=== PATIENT | female | born 1975 | race Caucasian/White ===

== ENCOUNTER 2018-05-01 12:51 | Inpatient (IN) | payer BC ==
--- OUTSIDE RECORDS SUMMARY | 2018-05-01 12:55 | XMS REPORT | Clinical Summary ---
:1975 Author Organization [facility] Address [address] [place] [address] Care Team Providers Name Role Phone Delorisadrian Alan Hathaway Primary Care Provider Allergies Active Allergy Reactions Severity Noted Date Comments Adhesive Other (See 02/16/2016 BLISTERS Comments) Codeine Swelling 02/16/2016 Erythromycin Swelling 02/16/2016 Tongue swelling Other Other (See 05/20/2016 Contraceptives cause Comments) migraines Promethazine 02/16/2016 IV GIVES DYSTONIC REACTION Topiramate Other (See 02/16/2016 SVT Comments) Tramadol Itching Low 02/16/2016 can take with benadryl Hydrocodone-Acetaminop Swelling Low 02/16/2016 Facial swelling hen Medications Medication Sig Dispensed Refills Start Date End Date Status acetaZOLAMIDE Take 500 mg by 0 Active (DIAMOX) 500 mg 12 hr mouth nightly capsule . dexlansoprazole 60 mg Take 60 mg by 0 Active capsule mouth nightly . propranolol (INDERAL) Take 80 mg by 0 Active 80 MG tablet mouth nightly . diphenhydrAMINE Take 50 mg by 0 Active (BENADRYL) 50 MG mouth nightly. tablet melatonin 5 mg Tab Take 5 mg by 0 Active tablet mouth nightly. cetirizine (ZYRTEC) Take 10 mg by 0 Discontinued 10 MG tablet mouth daily. 8 furosemide (LASIX) 40 Take 40 mg by 0 Discontinued MG tablet mouth 2 (two) 8 times daily. MELATONIN/PYRIDOXINE Take by mouth. 0 Discontinued (MELATONIN, WITH B6, 8 ORAL) metoprolol Take 25 mg by 0 Discontinued (LOPRESSOR) 25 MG mouth as 8 tablet needed (Racing Heart Rate). potassium chloride SA Take 20 mEq by 0 Discontinued (K-DUR,KLOR-CON) 20 mouth daily . 8 MEQ tablet DULoxetine (CYMBALTA) Take 60 mg by 0 Discontinued 60 MG capsule mouth daily. 8 CYANOCOBALAMIN, Take by mouth. 0 Discontinued VITAMIN B-12, 8 (VITAMIN B-12 ORAL) mesalamine (LIALDA) Take by mouth 0 Discontinued 1.2 gram EC tablet daily with 8 breakfast. BIFIDOBACTERIUM Take by mouth 0 Discontinued INFANTIS (ALIGN ORAL) 2 (two) times 8 daily. colestipol (COLESTID) Take 5 g by 0 Discontinued 5 gram granules mouth as 8 needed. ferrous gluconate Take 324 mg by 0 Discontinued (FERGON) 324 MG mouth daily 8 tablet with breakfast. frovatriptan (FROVA) Take 2.5 mg by 0 Discontinued 2.5 MG tablet mouth as 8 needed for Migraine If recurs, may repeat after 2 hours. Max of 3 tabs in 24 hours. . levoFLOXacin Take 1 tablet 10 tablet 0 09/07/2017 (LEVAQUIN) 750 MG (750 mg total) 8 tablet by mouth daily for 10 days. metroNIDAZOLE Take 1 tablet 40 tablet 0 09/07/2017 (FLAGYL) 500 MG (500 mg total) 8 tablet by mouth 4 (four) times daily for 10 days. traMADol (ULTRAM) 50 Take 1 tablet 20 tablet 0 09/07/2017 mg tablet (50 mg total) 8 by mouth every 6 (six) hours as needed for Pain for up to 10 days. 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 Encounters Date Type Specialty Care Team Description 11/04/2017 Surgery Olivia Ralph MD 11/04/2017 Anesthesia Event Celsa Lucero CRNA 11/04/2017 Hospital Encounter Olivia Ralph MD 11/01/2017 Hospital Encounter Pre-Admission Resource, Oqmt Testing Preadmit Phone 09/06/2017 - Emergency Emergency Guy Leyva Diverticulitis of large intestine without perforation or abscess without bleeding (Primary Dx); 09/07/2017 Angel Farrell MD Left lower quadrant pain after 04/30/2017 Social History Tobacco Use Types Packs/Day Years Used Date Current Every Day Smoker 20 Smokeless Tobacco: Never Used Comments: smokes 1-2 cig per day Alcohol Use Drinks/Week oz/Week Comments Yes rarely Sex Assigned at Date Recorded Not on file Job Start Date Occupation Industry Not on file Not on file Not on file Travel History Travel Start Travel End No recent travel history available. Last Filed Vital Signs Vital Sign Reading Time Taken Blood Pressure 115/69 11/04/2017 8:40 AM CDT Pulse 79 11/04/2017 8:40 AM CDT Temperature 36 C (96.8 F) 11/04/2017 8:13 AM CDT Respiratory Rate 17 11/04/2017 8:40 AM CDT Oxygen Saturation 98% 11/04/2017 8:40 AM CDT Inhaled Oxygen Concentration - - Weight 87.5 kg (193 lb) 11/04/2017 7:00 AM CDT Height 160 cm (5' 3") 11/04/2017 7:00 AM CDT Body Mass Index 34.19 11/04/2017 7:00 AM CDT Plan of Treatment Not on file Procedures Procedure Name Priority Date/Time Associated Diagnosis Comments REPORT OF PROCEDURE 11/04/2017 8:19 - ENDOSCOPY URL AM CDT COLONOSCOPY 11/04/2017 8:00 Diverticulitis of AM CDT sigmoid colon POCT , Routine 11/04/2017 7:51 Results for this URINE AM CDT procedure are in the results section. POCT , Routine 11/04/2017 7:50 Results for this URINE AM CDT procedure are in the results section. CT ABDOMEN/PELVIS STAT 09/06/2017 11:41 Results for this WITH IV CONTRAST PM CDT procedure are in the results section. CBC W/PLT COUNT & STAT 09/06/2017 10:04 Results for this AUTO DIFFERENTIAL PM CDT procedure are in the results section. PT/APTT STAT 09/06/2017 10:04 Results for this PM CDT procedure are in the results section. SCREEN, STAT 09/06/2017 10:04 Results for this URINE PM CDT procedure are in the results section. URINALYSIS W/ REFLEX STAT 09/06/2017 10:04 Results for this URINE CULTURE PM CDT procedure are in the results section. CBC W/PLT COUNT & STAT 09/06/2017 10:04 Results for this AUTO DIFFERENTIAL PM CDT procedure are in the results section. BASIC METABOLIC STAT 09/06/2017 10:04 Results for this PANEL (7) PM CDT procedure are in the results section. BLOOD CULTURE STAT 09/06/2017 10:04 Results for this PM CDT procedure are in the results section. after 04/30/2017 Results REPORT OF PROCEDURE - ENDOSCOPY URL (11/04/2017 8:19 AM CDT) Narrative Performed At POCT , urine (11/04/2017 7:51 AM CDT)Only the most recent of2 resultswithin the time period is included. Test Urine, POC Negative Control line present?, POC Yes Background clear?, POC Yes UPT Cassette Lot #, POC [id number] UPT Cassette Expiration Date, POC 03/29/2019 CT abdomen pelvis with IV contrast (09/06/2017 11:41 PM CDT) Narrative Performed At FINAL REPORT [facility] CLINICAL HISTORY: Acute abdominal pain. FINDINGS: Multiple axial images of the abdomen and pelvis were performed after the uncomplicated administration of IV contrast. Oral contrast was not given. This exam was performed according to our departmental dose-optimization program, which includes automated exposure control, adjustment of the mA and/or kV according to patient size and/or use of the iterative reconstruction technique. Comparison: 03/07/2017 Lower chest: Bibasilar curvilinear atelectasis versus scarring. No pleural effusion or pneumothorax. Visualized cardiac contours normal. Liver: Stable subcentimeter hypodensity in the right liver, too small to characterize but possibly a cyst Gallbladder and biliary tree: Previous cholecystectomy Spleen: No significant findings. Adrenal Glands: No significant findings. Kidneys and ureters: Several bilateral nonobstructing kidney stones measuring up to 5 mm Stomach and Duodenum: No significant findings. Pancreas: No significant findings. Bowel: Previous right hemicolectomy. No bowel obstruction. Left colonic diverticulosis with focal mural thickening and adjacent inflammatory fat stranding in the proximal sigmoid colon. No evidence of perforation or abscess formation. Bladder: No significant findings. Major vascular structures: No significant findings. Reproductive organs: There is a tampon in the vagina. Other: Trace fluid in the left lower quadrant is probably reactive. No free air or adenopathy Skeleton: No acute bony abnormality. IMPRESSION: Acute, uncomplicated sigmoid diverticulitis. Postsurgical changes, as described. Signed: Brenda Mclean MD Report Verified Date/Time:09/07/2017 00:08:11 Reading Location: [address] Reading Room Procedure Note Interface, External Ris In - 09/07/2017 12:10 AM CDT FINAL REPORT CLINICAL HISTORY: Acute abdominal pain. FINDINGS: Multiple axial images of the abdomen and pelvis were performed after the uncomplicated administration of IV contrast. Oral contrast was not given. This exam was performed according to our departmental dose-optimization program, which includes automated exposure control, adjustment of the mA and/or kV according to patient size and/or use of the iterative reconstruction technique. Comparison: 03/07/2017 Lower chest: Bibasilar curvilinear atelectasis versus scarring. No pleural effusion or pneumothorax. Visualized cardiac contours normal. Liver: Stable subcentimeter hypodensity in the right liver, too small to characterize but possibly a cyst Gallbladder and biliary tree: Previous cholecystectomy Spleen: No significant findings. Adrenal Glands: No significant findings. Kidneys and ureters: Several bilateral nonobstructing kidney stones measuring up to 5 mm Stomach and Duodenum: No significant findings. Pancreas: No significant findings. Bowel: Previous right hemicolectomy. No bowel obstruction. Left colonic diverticulosis with focal mural thickening and adjacent inflammatory fat stranding in the proximal sigmoid colon. No evidence of perforation or abscess formation. Bladder: No significant findings. Major vascular structures: No significant findings. Reproductive organs: There is a tampon in the vagina. Other: Trace fluid in the left lower quadrant is probably reactive. No free air or adenopathy Skeleton: No acute bony abnormality. IMPRESSION: Acute, uncomplicated sigmoid diverticulitis. Postsurgical changes, as described. Signed: Brenda Mclean MD Report Verified Date/Time: 09/07/2017 00:08:11 Reading Location: [address] Reading Room Performing Organization Address City/State/Zipcode Phone Number [facility] Urinalysis w/Microscopic + Reflex to Culture - Clear Catch (09/06/2017 10:04 PM CDT) Color, UA Yellow [facility] Clarity, UA Clear [facility] Specific [place], UA 1.021 1.001 - 1.035 [facility] pH, UA 6.0 5.0 - 8.0 [facility] Protein, UA 10 mg/dL (A) Negative [facility] Glucose, UA Negative Negative [facility] Ketones, UA Negative Negative [facility] Bilirubin, UA Negative Negative [facility] Blood, UA Negative Negative [facility] Nitrite, UA Negative Negative [facility] Leukocytes, UA Negative Negative [facility] Urobilinogen, UA 0.2 0.2 - 1.0 mg/dL [facility] RBC, UA 0 /HPF [facility] WBC, UA 0 /HPF [facility] Bacteria, UA Rare [facility] Mucus Rare [facility] Squam Epithel, UA 1 /HPF [facility] Specimen Source [facility] Specimen Urine - Urine, Voided Performing Organization Address City/[facility]/Zipcode Phone Number [facility] [address] [place] [address] [phone] CENTER PT/aPTT (09/06/2017 10:04 PM CDT) Protime 13.4 11.7 - 14.7 seconds [facility] INR 1.0 <=5.9 [facility] PTT 31.4 22.5 - 36.0 seconds [facility] Specimen Blood - Line, Venous Narrative Performed At [facility] RECOMMENDED COUMADIN/WARFARIN INR THERAPY RANGES STANDARD DOSE: 2.0 - 3.0 Includes: PROPHYLAXIS for venous thrombosis, systemic embolization; TREATMENT for venous thrombosis and/or pulmonary embolus. HIGH RISK: Target INR is 2.5-3.5 for patients with mechanical heart valves. Performing Organization Address City/State/Zipcode Phone Number [facility] [address] [place] [address] CENTER CBC with platelet count + automated diff (09/06/2017 10:04 PM CDT) WBC 16.3 (H) 3.5 - 10.5 K/L [facility] RBC 5.14 3.93 - 5.22 M/L [facility] Hemoglobin 15.3 11.2 - 15.7 GM/DL [facility] Hematocrit 46.5 (H) 34.1 - 44.9 % [facility] MCV 90.5 79.4 - 94.8 fL [facility] MCH 29.8 25.6 - 32.2 pg [facility] MCHC 32.9 32.2 - 35.5 GM/DL [facility] RDW 12.4 11.7 - 14.4 % [facility] Platelets 291 150 - 450 K/CU MM [facility] MPV 10.3 9.4 - 12.3 fL [facility] nRBC 0 0 - 0 /100 WBC [facility] % Neutros 72 % [facility] % Lymphs 18 % [facility] % Monos 9 % [facility] % Eos 0 % [facility] % Baso 0 % [facility] # Neutros 11.68 (H) 1.56 - 6.13 K/L [facility] # Lymphs 2.99 1.18 - 3.74 K/L [facility] # Monos 1.43 (H) 0.24 - 0.36 K/L [facility] # Eos 0.06 0.04 - 0.36 K/L [facility] # Baso 0.05 0.01 - 0.08 K/L [facility] Immature 1 0 - 1 % [facility] Granulocytes-Relative [facility] [place] Specimen Blood - Line, Venous Performing Organization Address [facility] [place] [address] [phone] [place] screen, urine (09/06/2017 10:04 PM CDT) Preg Test, Ur Negative [facility] Specimen Urine - Urine, Voided Performing Organization Address City/[facility] [place] [address] [place] Blood culture (09/06/2017 10:04 PM CDT) Result No growth in 5 days [facility] Specimen Blood - Line, Venous Performing Organization Address [facility] Phone Number [address] [address] [place] Basic metabolic panel (Na, K+, Cl, CO2, Glu, Ca, BUN, Cr) (09/06/2017 10:04 PM CDT) Sodium 134 (L) 136 - 145 meq/L [facility] Potassium 4.3Comment: Specimen 3.5 - 5.1 meq/L [facility] moderately hemolyzed [facility] [place] Chloride 104 98 - 107 meq/L [facility] CO2 21 (L) 22 - 29 meq/L [facility] BUN 14 7 - 21 mg/dL [facility] Creatinine 0.90Comment: Specimen 0.57 - 1.25 mg/dL [facility] moderately hemolyzed [facility] Glucose 88 70 - 105 mg/dL [facility] Calcium 9.4 8.4 - 10.2 mg/dL [facility] EGFR 70Comment: ESTIMATED GFR IS mL/min/1.73 sq m [facility] NOT ACCURATE CREATININE [facility] CENTER CLEARANCE IN PREDICTING GLOMERULAR FILTRATION RATE. ESTIMATED GFR IS NOT APPLICABLE FOR DIALYSIS PATIENTS. Specimen Blood - Line, Venous Performing Organization Address City/State/Zipcode Phone Number [facility] [address] [place] [address] [phone] CENTER after 04/30/2017 Insurance Payer Benefit Plan / Subscriber ID Type Phone Address Group BLUE CROSS/BLUE BS OS xxxxxxxxxxxx PPO [phone] [address] SHIELD POS/PP[place] [address] Advance Directives For more information, please contact:[facility] [place] [address] [phone] Code Status Date Activated Date Inactivated Comments Full Code 05/27/2016 6:45 AM 05/27/2016 5:23 PM This code status was determined by: Patient
--- OUTSIDE RECORDS SUMMARY | 2018-05-01 12:55 | XMS REPORT | Clinical Summary ---
:1975 Author Organization [facility] Address [address] [place] [address] Care Team Providers Name Role Phone Alan Strong MD Primary Care Provider Allergies Active Allergy Reactions Severity Noted Date Comments Adhesive Tape-Silicones Other (See Comments) 10/29/2015 Blisters, red and swelling Blisters skin Codeine Swelling 10/29/2015 Erythromycin Swelling High 10/29/2015 Tongue swelling Hydrocodone 12/16/2015 Ortho-Novum 1 (21) Other (See Comments) 10/29/2015 migraines Promethazine 12/16/2015 IV GIVES DYSTONIC REACTION Topiramate Other (See Comments) High 10/29/2015 SVT Tramadol Itching 10/29/2015 gen itching Hydrocodone-Acetaminophe Swelling, Rash High 10/29/2015 Facial swelling n Medications Medication Sig Dispensed Refills Start Date End Date Status dexlansoprazole Take 60 mg by 0 Active (DEXILANT) 60 mg mouth daily. capsule cyanocobalamin, Vitamin B12 0 Active vitamin B-12, (VITAMIN B-12) 1,000 mcg tablet, sublingual cholecalciferol, Vitamin D3 0 Active vitamin D3, (VITAMIN D3) 1,000 unit capsule cetirizine (ZyrTEC) Take by oral 0 Active 10 mg capsule route. DULoxetine (CYMBALTA) Take 60 mg by 5 04/24/2016 Active 60 MG capsule mouth once daily. ALIGN 4 mg capsule TAKE 1 TAB BY 3 04/30/2016 Active MOUTH DAILY. LIALDA 1.2 gram EC Take 4.8 g by 5 04/30/2016 Active tablet mouth once daily. melatonin-pyridoxine, Take by 0 Active vit B6, (MELATONIN, mouth. WITH B6,) 5-1 mg tablet colestipol (COLESTID) Take 1 g by 0 Active 1 gram tablet mouth 2 (two) times a day. furosemide (LASIX) 40 Take 1 tablet 90 tablet 3 07/29/2016 Active mg tabletIndications: (40 mg total) Tachycardia by mouth daily. potassium chloride Take 1 tablet 90 tablet 3 07/29/2016 Active (K-DUR) 20 MEQ CR (20 mEq tabletIndications: total) by Tachycardia mouth daily. Last dose 2 weeks ago ferrous gluconate Take 324 mg 0 Active (FERGON) 324 MG by mouth tablet daily with breakfast. propranolol (INDERAL) Take 80 mg by 0 Active 80 MG tablet mouth daily. metoprolol tartrate Take 25 mg by 0 Active (LOPRESSOR) 25 mg mouth as tablet needed. acetaZOLAMIDE TAKE ONE 60 capsule 1 03/03/2018 Active (DIAMOX) 500 mg CAPSULE BY capsule MOUTH TWICE DAILY acetaZOLAMIDE TAKE ONE 60 capsule 3 11/01/2016 Discontinued (DIAMOX) 500 mg CAPSULE BY 8 capsule MOUTH TWICE DAILY Active Problems Problem Noted Date Paroxysmal supraventricular tachycardia 05/07/2016 Papilledema of both eyes due to increased intracranial pressure 05/07/2016 Internal hemorrhoids with complication 04/11/2016 External hemorrhoids 04/11/2016 Condyloma acuminatum 04/11/2016 Irritable bowel syndrome 03/21/2016 Gastrointestinal ulcer due to Helicobacter pylori 03/21/2016 Current smoker 02/14/2016 Diverticulosis of intestine 02/14/2016 IIH (idiopathic intracranial hypertension) 02/13/2016 Papilledema of both eyes 02/13/2016 Nasal step visual field defect 02/13/2016 Cavernous hemangioma of brain 02/13/2016 Encounters Date Type Specialty Care Team Description 03/02/2018 Refill Ophthalmology Luly Soto MD 02/24/2018 Office Visit Ophthalmology EUSEBIO Soto (idiopathic intracranial hypertension) (Primary Dx); MD Luly Unspecified visual field defects; Papilledema associated with increased intracranial pressure; 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 11/10/2017 Office Visit Ophthalmology EUSEBIO Soto (idiopathic intracranial hypertension) (Primary Dx); MD Luly Unspecified visual field defects; Optic disc edema; Nasal step visual field defect, left; 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/2017 Family History Medical History Relation Name Comments No Known Problems Father Cancer Maternal Grandfather No Known Problems Mother Cancer Paternal Aunt Cancer Paternal Grandmother Relation Name Status Comments Father Alive Maternal Grandfather Mother Alive Paternal Aunt Paternal Grandmother Social History Tobacco Use Types Packs/Day Years Used Date Current Some Day Smoker 0.25 10 Smokeless Tobacco: Never Used Alcohol Use Drinks/Week oz/Week Comments Yes 4 drinks per month Sex Assigned at Date Recorded Not on file Job Start Date Occupation Industry Not on file Not on file Not on file Travel History Travel Start Travel End No recent travel history available. Last Filed Vital Signs Vital Sign Reading Time Taken Blood Pressure - - Pulse - - Temperature - - Respiratory Rate - - Oxygen Saturation - - Inhaled Oxygen Concentration - - Weight 83.9 kg (185 lb) 02/24/2018 9:15 AM CDT Height 160 cm (5' 3") 02/24/2018 9:15 AM CDT Body Mass Index 32.77 02/24/2018 9:15 AM CDT Plan of Treatment Health Maintenance Due Date Last Done Comments MMR VACCINES (1 of 1 - Standard 1978 series) VARICELLA VACCINES (1 of 2 - 2-dose 1990 adolescent series) CERVICAL CANCER SCREENING 1998 INFLUENZA VACCINE 12/28/2017 HEPATITIS B VACCINES Aged Out No longer eligible based on patient's age to complete this topic IPV VACCINES Aged Out No longer eligible based on patient's age to complete this topic MENINGOCOCCAL VACCINE Aged Out No longer eligible based on patient's age to complete this topic Procedures Procedure Name Priority Date/Time Associated Diagnosis Comments OCT, OPTIC NERVE - Routine 02/24/2018 9:38 Unspecified visual Results for this OU - BOTH EYES AM CDT field defects procedure are in IIH (idiopathic the results intracranial section. hypertension) Papilledema associated with increased intracranial pressure AUTOMATED VISUAL Routine 02/24/2018 9:38 Unspecified visual Results for this FIELD, EXTENDED - AM CDT field defects procedure are in OU - BOTH EYES IIH (idiopathic the results intracranial section. 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 hypertension) Optic disc edema Nasal step visual field defect, left Partial optic atrophy of both eyes AUTOMATED VISUAL Routine 11/10/2017 8:01 Unspecified visual Results for this FIELD, EXTENDED - AM CDT field defects procedure are in OU - BOTH EYES IIH (idiopathic the results intracranial section. hypertension) Nasal step visual field defect, left after 04/30/2017 Results OCT, Optic Nerve - OU (02/24/2018 9:38 AM CDT) Narrative Performed At OD 88, 87, 88, 95, 90, 103, 122, 115 OS 85, 83, 85, 100, 89, 105, 138, 132 Automated Visual Field, Extended - OU (02/24/2018 9:38 AM CDT) Narrative Performed At Right Eye Threshold was 24-2. Strategy was FAUSTINA. -0.90. Findings include normal observations, non-specific defects. Left Eye Threshold was 24-2. Strategy was FAUSTINA. -1.36. Findings include inferior arcuate defect. OCT, Optic Nerve - OU (11/10/2017 8:01 AM CDT) Narrative Performed At OD 87, 88, 95, 90, 103, 122, 115 OS 83, 85, 100, 89, 105, 138, 132 Automated Visual Field, Extended - OU (11/10/2017 8:01 AM CDT) Narrative Performed At Right Eye -1.63. Findings include normal observations, non-specific defects. Left Eye -1.14. Findings include non-specific defects, normal observations, inferior nasal step defect. after 04/30/2017 Insurance Payer Benefit Plan / Group Subscriber ID Type Phone Address BS BS CHOICE PPO/FEDERAL EMPL PPO xxxxxxxxxxxx PPO Advance Directives Patient has advance care planning documents on file. For more information, please contact:[place] [address]
--- OUTSIDE RECORDS SUMMARY | 2018-05-01 12:55 | XMS REPORT | Continuity of Care Document ---
:1975 Author Organization Interface Problems Problem Status Onset Date Classification Date Comments Source Reported Medications Medication Details Route Status Patient Ordering Order Source Instructions Provider Date Allergies, Adverse Reactions, Alerts Substance Category Reaction Severity Reaction Status Date Comments Source type Reported Immunizations Immunization Date Given Site Status Last Updated Comments Source Results Order Results Value Reference Date Interpretation Comments Source Name Range Vital Signs Vital Sign Value Date Comments Source Encounters Location Location Encounter Encounter Reason Attending ADM DC Status Source Details Type Number For Provider Date Date Visit Outpatient [id number] [facility] 08/25 [facility] [id number] [facility] 03/10 [facility] [id number] [facility] 10/06 [facility] Procedures Procedure Code Date Perfomer Comments Source
--- OUTSIDE RECORDS SUMMARY | 2018-05-01 12:56 | XMS REPORT ---
:1975 [facility] Address [address] [place] [address] [address]. [address] [place] [address] Care Team Providers Name Role Phone HERNANDEZ HUFFMAN Unavailable Unavailable Problems This patient has no known problems. Allergies, Adverse Reactions, Alerts This patient has no known allergies or adverse reactions. Medications This patient has no known medications. Results Test Description Test Time Test Comments Text Results Atomic Results Result Comments BLOOD CULTURE 2017-09-12 06:00:00 Test Item Value Reference Range Comments CULTURE (BEAKER) (test wbci=7815) No growth in [address], [id number] 00:08:00Reason for exam:->abd painIs the patient ?->NoWhat is the patient's sedation requirement?->No SedationFINAL REPORT CLINICAL HISTORY: Acute abdominal pain. FINDINGS: [...] the iterative reconstruction technique. Comparison: 03/07/2017 Lower chest:Bibasilar curvilinear atelectasis versus scarring. No pleural effusion or pneumothorax. Visualized cardiac contours normal. Liver: Stable subcentimeter hypodensity in the right liver, too small to characterize but possibly a cyst Gallbladder and biliary tree: Previous cholecystectomy Spleen: No significant findings. Adrenal Glands: No significant findings. Kidneys and ureters: Several bilateral nonobstructing kidney stones measuring up to 5 mm Stomach and Duodenum: No significant findings. Pancreas:No significant findings. Bowel: Previous right hemicolectomy. No [...] Postsurgical changes, as described. Signed: Brenda Mclean MDReport Verified Date/Time: 09/07/2017 00:08:11 Reading Location: [address] Reading Room [id number] 22:35:00 Test Item Value Reference Range Comments PROTIME (BEAKER) (test dunv=944) 13.4 seconds 11.7-14.7 INR (BEAKER) (test dmit=066) 1.0 <=5.9 PARTIAL THROMBOPLASTIN TIME (BEAKER) (test 31.4 seconds 22.5-36.0 buqi=368) RECOMMENDED COUMADIN/WARFARIN INR THERAPY RANGESSTANDARD DOSE: 2.0 - 3.0 Includes: PROPHYLAXIS forvenous thrombosis, systemic embolization; TREATMENT for venous thrombosis and/or pulmonary embolus.HIGH RISK: Target INR is 2.5-3.5 for patients with mechanical heart valves.BASIC METABOLIC [id number] 22:33: 00 Test Item Value Reference Range Comments SODIUM (BEAKER) (test 134 meq/L 136-145 ejxp=805) POTASSIUM (BEAKER) (test 4.3 meq/L 3.5-5.1 Specimen moderately uzyv=191) hemolyzed CHLORIDE (BEAKER) (test 104 meq/L 98-107 nyit=612) CO2 (BEAKER) (test 21 meq/L 22-29 wsav=852) BLOOD UREA NITROGEN 14 mg/dL 7-21 (BEAKER) (test glxm=414) CREATININE (BEAKER) (test 0.90 mg/dL 0.57-1.25 Specimen moderately vmwx=127) hemolyzed GLUCOSE RANDOM (BEAKER) 88 mg/dL 70-105 (test lgwb=460) CALCIUM (BEAKER) (test 9.4 mg/dL 8.4-10.2 ucxf=634) EGFR (BEAKER) (test 70 mL/min/1.73 sq m ESTIMATED GFR IS NOT ztco=9240) ACCURATE CREATININE CLEARANCE IN PREDICTING GLOMERULAR FILTRATION RATE. ESTIMATED GFR IS NOT APPLICABLE FOR DIALYSIS PATIENTS. CBC W/PLT COUNT & AUTO [id number] 22:27:00 Test Item Value Reference Range Comments WHITE BLOOD CELL COUNT (BEAKER) (test reaf=280) 16.3 K/ L 3.5-10.5 RED BLOOD CELL COUNT (BEAKER) (test gejj=762) 5.14 M/ L 3.93-5.22 HEMOGLOBIN (BEAKER) (test ihvt=727) 15.3 GM/DL 11.2-15.7 HEMATOCRIT (BEAKER) (test dhbm=265) 46.5 % 34.1-44.9 MEAN CORPUSCULAR VOLUME (BEAKER) (test fytz=643) 90.5 fL 79.4-94.8 MEAN CORPUSCULAR HEMOGLOBIN (BEAKER) (test 29.8 pg 25.6-32.2 kqux=870) MEAN CORPUSCULAR HEMOGLOBIN CONC (BEAKER) (test 32.9 GM/DL 32.2-35.5 ndzp=590) RED CELL DISTRIBUTION WIDTH (BEAKER) (test 12.4 % 11.7-14.4 npnw=609) PLATELET COUNT (BEAKER) (test ubyh=710) 291 K/CU MM 150-450 MEAN PLATELET VOLUME (BEAKER) (test xayo=551) 10.3 fL 9.4-12.3 NUCLEATED RED BLOOD CELLS (BEAKER) (test 0 /100 WBC 0-0 ltqt=422) NEUTROPHILS RELATIVE PERCENT (BEAKER) (test 72 % mogx=753) LYMPHOCYTES RELATIVE PERCENT (BEAKER) (test 18 % iewi=903) MONOCYTES RELATIVE PERCENT (BEAKER) (test 9 % qepo=599) EOSINOPHILS RELATIVE PERCENT (BEAKER) (test 0 % vowu=045) BASOPHILS RELATIVE PERCENT (BEAKER) (test 0 % yzsx=701) NEUTROPHILS ABSOLUTE COUNT (BEAKER) (test 11.68 K/ L 1.56-6.13 dbzl=582) LYMPHOCYTES ABSOLUTE COUNT (BEAKER) (test 2.99 K/ L 1.18-3.74 awpe=957) MONOCYTES ABSOLUTE COUNT (BEAKER) (test 1.43 K/ L 0.24-0.36 xxav=814) EOSINOPHILS ABSOLUTE COUNT (BEAKER) (test 0.06 K/ L 0.04-0.36 ppfh=323) BASOPHILS ABSOLUTE COUNT (BEAKER) (test 0.05 K/ L 0.01-0.08 zrms=248) IMMATURE GRANULOCYTES-RELATIVE PERCENT (BEAKER) 1 % 0-1 (test bhgj=1644) URINALYSIS W/ REFLEX URINE [id number] 22:23:00 Test Item Value Reference Range Comments COLOR (BEAKER) (test wydd=618) Yellow CLARITY (BEAKER) (test aknj=353) Clear SPECIFIC GRAVITY UA (BEAKER) (test ikmm=769) 1.021 1.001-1.035 PH UA (BEAKER) (test xipo=041) 6.0 5.0-8.0 PROTEIN UA (BEAKER) (test fvwz=330) 10 mg/dL Negative GLUCOSE UA (BEAKER) (test cmsu=845) Negative Negative KETONES UA (BEAKER) (test kkia=129) Negative Negative BILIRUBIN UA (BEAKER) (test fikf=881) Negative Negative BLOOD UA (BEAKER) (test cpvf=905) Negative Negative NITRITE UA (BEAKER) (test yykn=544) Negative Negative LEUKOCYTE ESTERASE UA (BEAKER) (test ygdj=762) Negative Negative UROBILINOGEN UA (BEAKER) (test ofmy=762) 0.2 mg/dL 0.2-1.0 RBC UA (BEAKER) (test rlmi=917) 0 /HPF WBC UA (BEAKER) (test etyk=585) 0 /HPF BACTERIA (BEAKER) (test cpjf=366) Rare MUCUS (BEAKER) (test iuxf=3724) Rare SQUAMOUS EPITHELIAL (BEAKER) (test rtcq=232) 1 /HPF SOURCE(BEAKER) (test wfsz=9708) SCREEN, [id number] 22:22:00 Test Item Value Reference Range Comments TEST URINE (BEAKER) (test pbxe=304) Negative CT, [id number] 00:19:00Reason for exam:->ABDOMINAL PAINIs the patient ?->UnknownWhat is the patient's sedation requirement?->No SedationFINAL REPORT CT scan of the abdomen and pelvis: CLINICAL HISTORY: Abdominal pain. History of diverticulitis. Comparison exam: None TECHNIQUE: CT scan of the abdomen and pelvis with intravenous contrast. This exam was performed according to our departmental dose optimization program , which includes automated exposure control, adjustment of the mA and/or kV according to the patient's size and/or use of the iterative reconstruction technique. FINDINGS: Minimal bilateral posteriorbasilar atelectasis. Normal heart. Subcentimeter hepatic hypodensity, too small to accurately characterize. 2.1 x 1.4 cm splenule. Normal spleen and pancreas. Previous cholecystectomy. Acute sigmoid colon diverticulitis. Previous right hemicolectomy. No abnormal fluid collections. No free intraperitoneal air. No mesenteric or retroperitoneal lymphadenopathy. Normal aorta. Patent mesenteric arteries. Normal adrenal glands. Multiple bilateral renal stones. No ureteral stones or hydronephrosis. Normal uterus. No adnexal abnormalities. Normal bladder. Normal skeleton, muscles, and subcutaneous fat. IMPRESSION: 1. Acute sigmoid colon diverticulitis. No abscess or extraluminal air. 2. Bilateral nephrolithiasis. No ureteral stones or hydronephrosis. 3. Previous right hemicolectomy and cholecystectomy. Signed: Colt Antoine MDReport Verified Date/Time: 03/08/2017 00:19:13 Reading Location: [address] Consult Reading Room URINALYSIS W / [id number] 22:58:00 Test Item Value Reference Range Comments COLOR (BEAKER) (test vgmw=893) Yellow CLARITY (BEAKER) (test azxz=014) Clear SPECIFIC GRAVITY UA (BEAKER) (test jris=539) 1.013 1.001-1.035 PH UA (BEAKER) (test usxp=194) 5.5 5.0-8.0 PROTEIN UA (BEAKER) (test ktvi=740) Negative Negative GLUCOSE UA (BEAKER) (test paxd=153) Negative Negative KETONES UA (BEAKER) (test ndiq=392) Negative Negative BILIRUBIN UA (BEAKER) (test jhkd=646) Negative Negative BLOOD UA (BEAKER) (test aunb=257) Negative Negative NITRITE UA (BEAKER) (test nmxl=097) Negative Negative LEUKOCYTE ESTERASE UA (BEAKER) (test jfje=337) Negative Negative UROBILINOGEN UA (BEAKER) (test jpdv=026) 0.2 mg/dL 0.2-1.0 RBC UA (BEAKER) (test jibs=196) 1 /HPF WBC UA (BEAKER) (test kzzk=802) 2 /HPF BACTERIA (BEAKER) (test icbu=734) Moderate MUCUS (BEAKER) (test meac=5913) Rare SQUAMOUS EPITHELIAL (BEAKER) (test qtad=024) 1 /HPF SOURCE(BEAKER) (test tpfc=8026) Urine, Voided SCREEN, [id number] 22:52:00 Test Item Value Reference Range Comments TEST URINE (BEAKER) (test vgby=253) Negative BASIC METABOLIC [id number] 22:20:00 Test Item Value Reference Range Comments SODIUM (BEAKER) (test 139 meq/L 136-145 uigm=496) POTASSIUM (BEAKER) (test 4.0 meq/L 3.5-5.1 Specimen slightly towb=195) hemolyzed CHLORIDE (BEAKER) (test 109 meq/L 98-107 vvvs=870) CO2 (BEAKER) (test 21 meq/L 22-29 qnyq=930) BLOOD UREA NITROGEN 11 mg/dL 7-21 (BEAKER) (test dkpq=654) CREATININE (BEAKER) (test 1.11 mg/dL 0.57-1.25 Specimen slightly njve=602) hemolyzed GLUCOSE RANDOM (BEAKER) 90 mg/dL 70-105 (test ymrh=001) CALCIUM (BEAKER) (test 9.5 mg/dL 8.4-10.2 dcmj=095) EGFR (BEAKER) (test 55 mL/min/1.73 sq m ESTIMATED GFR IS NOT lxnf=1679) ACCURATE CREATININE CLEARANCE IN PREDICTING GLOMERULAR FILTRATION RATE. ESTIMATED GFR IS NOT APPLICABLE FOR DIALYSIS PATIENTS. CBC W/PLT COUNT & AUTO [id number] 21:52:00 Test Item Value Reference Range Comments WHITE BLOOD CELL COUNT (BEAKER) (test pjxt=773) 10.1 K/ L 3.5-10.5 RED BLOOD CELL COUNT (BEAKER) (test vlwc=141) 4.78 M/ L 3.93-5.22 HEMOGLOBIN (BEAKER) (test qlwt=247) 13.6 GM/DL 11.2-15.7 HEMATOCRIT (BEAKER) (test gdpt=850) 42.1 % 34.1-44.9 MEAN CORPUSCULAR VOLUME (BEAKER) (test qttf=671) 88.1 fL 79.4-94.8 MEAN CORPUSCULAR HEMOGLOBIN (BEAKER) (test 28.5 pg 25.6-32.2 bjvz=785) MEAN CORPUSCULAR HEMOGLOBIN CONC (BEAKER) (test 32.3 GM/DL 32.2-35.5 iwij=348) RED CELL DISTRIBUTION WIDTH (BEAKER) (test 18.6 % 11.7-14.4 cjvd=816) PLATELET COUNT (BEAKER) (test zgjn=746) 314 K/CU MM 150-450 MEAN PLATELET VOLUME (BEAKER) (test mptp=358) 10.5 fL 9.4-12.3 NUCLEATED RED BLOOD CELLS (BEAKER) (test 0 /100 WBC 0-0 dvll=687) NEUTROPHILS RELATIVE PERCENT (BEAKER) (test 60 % zipw=522) LYMPHOCYTES RELATIVE PERCENT (BEAKER) (test 30 % rtfb=614) MONOCYTES RELATIVE PERCENT (BEAKER) (test 8 % tkwn=268) EOSINOPHILS RELATIVE PERCENT (BEAKER) (test 2 % knsg=946) BASOPHILS RELATIVE PERCENT (BEAKER) (test 0 % jzgo=280) NEUTROPHILS ABSOLUTE COUNT (BEAKER) (test 6.05 K/ L 1.56-6.13 sanm=701) LYMPHOCYTES ABSOLUTE COUNT (BEAKER) (test 2.97 K/ L 1.18-3.74 bwpw=464) MONOCYTES ABSOLUTE COUNT (BEAKER) (test 0.76 K/ L 0.24-0.36 ozbq=383) EOSINOPHILS ABSOLUTE COUNT (BEAKER) (test 0.16 K/ L 0.04-0.36 yoeq=527) BASOPHILS ABSOLUTE COUNT (BEAKER) (test 0.04 K/ L 0.01-0.08 nzol=030) IMMATURE GRANULOCYTES-RELATIVE PERCENT (BEAKER) 1 % 0-1 (test xcmv=0776)
[2018-05-01] MEDS ORDERED: NA CHLORIDE 0.9% 1,000 ML ONE ×2 (13:30→17:26)
[2018-05-01 13:38] LABS: Absolute Lymphocytes (CBC) 4.7 K/uL (0.7-4.9); Absolute Monocytes 1.9 K/uL (0.1-1.3); Absolute Neutrophil 15.7 K/uL (1.8-8.0); Basophils % 0.7 % (0-1.3); Eosinophils % 0.3 % (0-4.4); Hematocrit 44.2 % (36.0-45.0); Lymphocytes % 20.8 % (15.3-44.8); MCH 30.2 pg (27.0-35.0); MCV 88.8 fL (80-100); MPV 9.2 fL (7.6-11.3); Monocytes % 8.5 % (3.3-12.3); RBC Red Blood Cell Count 4.98 M/uL (3.86-4.86)
[2018-05-01 13:45] LABS: Protime INR 0.97
[2018-05-01 13:49] LABS: ALT/SGPT 72 U/L (12-78); AST/SGOT 21 U/L (15-37); Albumin 3.4 g/dL (3.4-5.0); Alkaline Phosphatase 93 U/L (45-117); BUN Blood Urea Nitrogen 24 mg/dL (7-18); Bicarbonate 23 mmol/L (21-32); Bilirubin Direct < 0.1 mg/dL (0-0.2); Bilirubin Total 0.3 mg/dL (0.2-1.0); Glucose Level 67 mg/dL (74-106); Lipase 132 U/L (73-393); Magnesium 2.5 mg/dL (1.8-2.4); NT PRO-BNP 29 pg/mL (<125); Potassium 3.5 mmol/L (3.5-5.1); Protein, Total 7.3 g/dL (6.4-8.2); Sodium Level 137 mmol/L (136-145); Troponin (Emerg Dept Use Only) < 0.02 ng/mL (0.0-0.045)
[2018-05-01 14:02] LABS: Urine Blood NEGATIVE (NEG); Urine Glucose NEGATIVE (NEG); Urine Protein NEGATIVE (NEG); Urine pH 7.5 (5.0-7.0)
[2018-05-01] MEDS ORDERED: PANTOPRAZOLE 40 MG INJ ONE (14:05)
--- NOTE | 2018-05-01 14:21 | RAD REPORT ---
EXAM DESCRIPTION: RAD - Chest Single View - 05/01/2018 2:11 pm CLINICAL HISTORY: CHEST PAIN Chest pain. COMPARISON: CHEST PA AND LAT 2 VIEW dated 01/24/2015; ABDOMEN 1 VIEW KUB dated 10/25/2012; CHEST SINGL E VIEW dated 07/10/2012; CHEST SINGLE VIEW dated 07/09/2012 FINDINGS: Portable technique limits examination quality. The lungs are grossly clear. The heart is normal in size. No displaced fractures. IMPRESSION: No acute intrathoracic process suspected.
[2018-05-01] MEDS ORDERED: D50W 25 GM/50 ML SYRINGE IV ONE (14:34)
--- NOTE | 2018-05-01 15:10 | EKG ---
Test Date: 2018-05-01 Test Time: 13:02:30 Kitchen Steward/Stewardess: KATJA MEASUREMENT RESULTS: Intervals: Rate: 66 IL: 172 QRSD: 88 QT: 378 QTc: 396 [place]: P: 49 IL: 172 QRS: -13 T: 20 INTERPRETIVE STATEMENTS: Normal sinus rhythm Normal ECG Compared to ECG 02/05/2016 09:47:16 No significant changes Electronically Signed On 05-01-18 15:09:28 SUPERVISOR WET ROOM by Bud Au
[2018-05-01 15:20] LABS: Smudge Cells PRESENT
[2018-05-01 15:21] LABS: Blood Morphology Comment NOT SEEN (NOT SEEN); Platelet Estimate ADEQ
--- NOTE | 2018-05-01 16:10 | EDPHYS ---
Physician Documentation [facility] Name: Luz Maria Mendoza Age: 42 yrs Sex: Female : 1975 Arrival Date: 05/01/2018 Time: 12:53 Bed 30 Private MD: Alan Strong ED Physician Russ De La Rosa HPI: 05/01 13:46 This 42 yrs old Female presents to ER via Ambulatory with complaints of Chest paola Pain. 13:46 The patient or guardian reports chest pain that is located primarily in the substernal paola area. Onset: 1 week(s) ago. The pain radiates to chest. Associated signs and symptoms: Pertinent positives: shortness of breath. The chest pain is described as a pressure. Duration: The patient or guardian reports a single episode. Modifying factors: The symptoms are alleviated by nothing. the symptoms are aggravated by nothing. Severity of pain: At its worst the pain was mild moderate in the emergency department the pain is unchanged. The patient has experienced similar episodes in the past, a few times. Historical: - Allergies: 12:59 Codeine; ss 12:59 Contraceptives; ss 12:59 Erythromycin; ss 12:59 Phenergan (IV); ss 12:59 Topamax; ss 12:59 Ultram (Itching); ss 12:59 Vicodin; ss 12:59 Iodinated Contrast Media - IV Dye; ss - PMHx: 12:59 Diverticulitis; GERD; hiatal hernia; Endometrosis; Anxiety; svt; PE; caverness angioma; ss hpv; sciatica; Migraines; IBS; iron deficiency anemia; pseudotumors; Kidney stones; - PSHx: 12:59 cardiac ablation; IVC filter placed and removed; Cholecystectomy; c section; gamma ss knife; Appendectomy; hemicolectomy; - Immunization history:: Adult Immunizations up to date. - Social history:: Smoking status: Patient uses tobacco products, 3-4 cigarettes/ day. - Ebola Screening: : Patient denies exposure to infectious person Patient denies travel to an Ebola-affected area in the 21 days before illness onset. - Family history:: not pertinent. ROS: 13:46 Constitutional: Negative for fever, chills, and weight loss, Eyes: Negative for injury, paola pain, redness, and discharge, ENT: Negative for injury, pain, and discharge, Neck: Negative for injury, pain, and swelling, Respiratory: Negative for shortness of breath, cough, wheezing, and pleuritic chest pain, Abdomen/GI: Negative for abdominal pain, nausea, vomiting, diarrhea, and constipation, Back: Negative for injury and pain, : Negative for injury, bleeding, discharge, and swelling, MS/Extremity: Negative for injury and deformity, Skin: Negative for injury, rash, and discoloration, Neuro: Negative for headache, weakness, numbness, tingling, and seizure, Psych: Negative for depression, anxiety, suicide ideation, homicidal ideation, and hallucinations, Allergy/Immunology: Negative for hives, rash, and allergies, Endocrine: Negative for neck swelling, polydipsia, polyuria, polyphagia, and marked weight changes, Hematologic/Lymphatic: Negative for swollen nodes, abnormal bleeding, and unusual bruising. 13:46 Cardiovascular: Positive for chest pain, of the chest. Exam: 13:46 Constitutional: This is a well developed, well nourished patient who is awake, alert, paola and in no acute distress. Head/Face: Normocephalic, atraumatic. Eyes: Pupils equal round and reactive to light, extra-ocular motions intact. Lids and lashes normal. Conjunctiva and sclera are non-icteric and not injected. Cornea within normal limits. Periorbital areas with no swelling, redness, or edema. ENT: Nares patent. No nasal discharge, no septal abnormalities noted. Tympanic membranes are normal and external auditory canals are clear. Oropharynx with no redness, swelling, or masses, exudates, or evidence of obstruction, uvula midline. Mucous membranes moist. Neck: Trachea midline, no thyromegaly or masses palpated, and no cervical lymphadenopathy. Supple, full range of motion without nuchal rigidity, or vertebral point tenderness. No Meningismus. Chest/axilla: Normal chest wall appearance and motion. Nontender with no deformity. No lesions are appreciated. Cardiovascular: Regular rate and rhythm with a normal S1 and S2. No gallops, murmurs, or rubs. Normal PMI, no JVD. No pulse deficits. Respiratory: Lungs have equal breath sounds bilaterally, clear to auscultation and percussion. No rales, rhonchi or wheezes noted. No increased work of breathing, no retractions or nasal flaring. Skin: Warm, dry with normal turgor. Normal color with no rashes, no lesions, and no evidence of cellulitis. MS/ Extremity: Pulses equal, no cyanosis. Neurovascular intact. Full, normal range of motion. Neuro: Awake and alert, GCS 15, oriented to person, place, time, and situation. Cranial nerves II-XII grossly intact. Motor strength 5/5 in all extremities. Sensory grossly intact. Cerebellar exam normal. Normal gait. Psych: Awake, alert, with orientation to person, place and time. Behavior, mood, and affect are within normal limits. Vital Signs: 12:59 BP 121 / 90; Pulse 78; Resp 16; Temp 97.1(TE); Pulse Ox 98% on R/A; Weight 82.1 kg; ss Height 5 ft. 3 in. (160.02 cm); Pain 8/10; 13:50 BP 124 / 85; Pulse 75; Resp 16; Pulse Ox 99% on R/A; kr2 15:04 BP 109 / 74; Pulse 64; Resp 17; Pulse Ox 97% on R/A; kr2 16:00 BP 110 / 64; Pulse 70; Resp 17; Pulse Ox 99% on R/A; kr2 17:37 BP 112 / 59; Pulse 66; Resp 17; Pulse Ox 99% on R/A; kr2 19:30 BP 108 / 70; Pulse 78; Resp 17; Pulse Ox 99% on R/A; kr2 20:52 BP 104 / 64; Pulse 76; Resp 16; Temp 98; Pulse Ox 99% on R/A; kr2 12:59 Body Mass Index 32.06 (82.10 kg, 160.02 cm) MDM: 13:01 Patient medically screened. [facility] 13:52 Data reviewed: vital signs, nurses notes, lab test result(s), EKG, radiologic studies, [facility] CT scan, plain films. 05/01 13:03 Order name: Basic Metabolic Panel; Complete Time: 13:51 [facility] 05/01 13:03 Order name: CBC with Diff; Complete Time: 16:02 [facility] 05/01 13:03 Order name: LFT's; Complete Time: 13:51 [facility] 05/01 13:03 Order name: Magnesium; Complete Time: 13:51 [facility] 05/01 13:03 Order name: NT PRO-BNP; Complete Time: 13:51 [facility] 05/01 13:03 Order name: PT-INR; Complete Time: 16:02 [facility] 05/01 13:03 Order name: Troponin (emerg Dept Use Only); Complete Time: 13:51 [facility] 05/01 13:03 Order name: Lipase; Complete Time: 13:51 [facility] 05/01 13:48 Order name: Manual Differential; Complete Time: 16:02 [facility] 05/01 13:52 Order name: Blood Culture Adult (2) [facility] 05/01 13:53 Order name: D-Dimer; Complete Time: 16:02 [facility] 05/01 14:00 Order name: Urine Dipstick--Ancillary (enter results); Complete Time: 14:04 05/01 14:01 Order name: Urine --Ancillary (enter results) 05/01 14:20 Order name: Urine Dipstick--Ancillary (enter results) 05/01 13:03 Order name: XRAY Chest (1 view) [facility] 05/01 13:51 Order name: CT Chest Abdomen Pelvis W/O Contrast: oral only; Complete Time: 16:49 [facility] 05/01 14:20 Order name: Urine --Ancillary (enter results) 05/01 14:23 Order name: RAD EDMS 05/01 16:46 Order name: CBC with Automated Diff EDMS 05/01 16:46 Order name: CBC with Automated Diff EDMS 05/01 16:46 Order name: Comprehensive Metabolic Panel EDMS 05/01 16:46 Order name: Comprehensive Metabolic Panel EDMS 05/01 16:46 Order name: Magnesium EDMS 05/01 16:46 Order name: Magnesium EDMS 05/01 16:46 Order name: Phosphorus EDMS 05/01 16:46 Order name: Phosphorus EDMS 05/01 13:03 Order name: EKG; Complete Time: 13:04 [facility] 05/01 13:03 Order name: Cardiac monitoring; Complete Time: 13:35 [facility] 05/01 13:03 Order name: EKG - Nurse/Tech; Complete Time: 13:35 [facility] 05/01 13:03 Order name: IV Saline Lock; Complete Time: 13:35 [facility] 05/01 13:03 Order name: Labs collected and sent; Complete Time: 13:35 [facility] 05/01 13:03 Order name: O2 Per Protocol; Complete Time: 13:35 [facility] 05/01 13:03 Order name: O2 Sat Monitoring; Complete Time: 13:35 [facility] 05/01 13:03 Order name: Urine Dipstick-Ancillary (obtain specimen); Complete Time: 13:35 [facility] 05/01 13:03 Order name: Urine Test (obtain specimen); Complete Time: 13:35 [facility] 05/01 16:46 Order name: CONS Physician Consult EDMS 05/01 16:46 Order name: NPO EDMS Administered Medications: 13:34 Drug: NS 0.9% 1000 ml Route: IV; Rate: 75 ml/hr; Site: left antecubital; kr2 20:50 Follow up: Response: No adverse reaction; IV Status: Infusion continued upon admission kr2 13:48 CANCELLED (Duplicate Order): Aspirin 162 mg PO once [facility] 13:48 CANCELLED (Duplicate Order): Lovenox 1 mg/kg Sub-Q once [facility] 13:55 Drug: NS 0.9% 1000 ml Route: IV; Rate: 1 bolus; Site: left antecubital; kr2 15:00 Follow up: Response: No adverse reaction; IV Status: Completed infusion kr2 14:00 Drug: ProTONIX 40 mg Route: IVP; Site: left antecubital; kr2 15:00 Follow up: Response: No adverse reaction kr2 14:25 Drug: D50W 25 ml Route: IVP; Site: left antecubital; kr2 15:30 Follow up: Response: No adverse reaction; Blood sugar is elevated kr2 17:30 Not Given (Patient Refused): Lovenox 1 mg/kg Sub-Q once kr2 17:30 Drug: Flagyl 500 mg Volume: 100 ml; Route: IVPB; Rate: 200 ml/hr; Infused Over: 30 kr2 mins; Site: left antecubital; 18:01 Follow up: Response: No adverse reaction; IV Status: Completed infusion kr2 17:36 Drug: Aspirin 162 mg Route: PO; kr2 20:49 Follow up: Response: No adverse reaction kr2 18:01 Drug: levofloxacin 500 mg Volume: 100 ml; Route: IVPB; Infused Over: 60 mins; Site: kr2 left antecubital; 19:00 Follow up: Response: No adverse reaction; IV Status: Completed infusion kr2 Point of Care Testing: Blood Glucose: 15:19 Blood Glucose: 91 mg/dL; kr2 Ranges: Critical Glucose Levels:Adult <50 mg/dl or >400 mg/dl <40 mg/dl or >180 mg/dl Disposition: 05/01/18 16:09 Hospitalization ordered by Anjelica Valerio for Inpatient Admission. Preliminary diagnosis are Other chest pain, Abdominal tenderness, Elevated white blood cell count, Diverticular disease of intestine, Diverticulitis of small intestine without perforation or abscess without bleeding. - Bed requested for Telemetry/MedSurg (Inpatient). - Status is Inpatient Admission. kr2 - Condition is Fair. - Problem is new. - Symptoms have improved. UTI on Admission? No Signatures: Dispatcher [employer] EDMS Racheal Olivera Corey, MD MD cha Smirch, Shelby, RN RN Tracey Marshall RN RN kr2 Corrections: (The following items were deleted from the chart) 13:48 13:46 Aspirin 162 mg PO once ordered. paola guevara 13:48 13:46 Lovenox 1 mg/kg Sub-Q once ordered. paola paola 16:50 16:09 Hospitalization Ordered by Anjelica Valerio MD for Inpatient Admission. Preliminary paola diagnosis is Other chest pain; Abdominal tenderness; Elevated white blood cell count. Bed requested for Telemetry/MedSurg (Inpatient). Status is Inpatient Admission. Condition is Fair. Problem is new. Symptoms have improved. UTI on Admission? No. paola 17:27 16:50 05/01/2018 16:09 Hospitalization Ordered by Anjelica Valerio MD for Inpatient bd Admission. Preliminary diagnosis is Other chest pain; Abdominal tenderness; Elevated white blood cell count; Diverticular disease of intestine; Diverticulitis of small intestine without perforation or abscess without bleeding. Bed requested for Telemetry/MedSurg (Inpatient). Status is Inpatient Admission. Condition is Fair. Problem is new. Symptoms have improved. UTI on Admission? No. paola 20:53 17:27 05/01/2018 16:09 Hospitalization Ordered by Anjelica Valerio MD for Inpatient kr2 Admission. Preliminary diagnosis is Other chest pain; Abdominal tenderness; Elevated white blood cell count; Diverticular disease of intestine; Diverticulitis of small intestine without perforation or abscess without bleeding. Bed requested for Telemetry/MedSurg (Inpatient). Status is Inpatient Admission. Condition is Fair. Problem is new. Symptoms have improved. UTI on Admission? No. bd
--- NOTE | 2018-05-01 16:10 | ER ---
Nurse's Notes [facility] Name: Luz Maria Mendoza Age: 42 yrs Sex: Female : 1975 Arrival Date: 05/01/2018 Time: 12:53 Bed 30 Private MD: Alan Srtong Diagnosis: Other chest pain;Abdominal tenderness;Elevated white blood cell count;Diverticular disease of intestine;Diverticulitis of small intestine without perforation or abscess without bleeding Presentation: 05/01 12:54 Presenting complaint: Patient states: intermittent chest discomfort that began 1 week ss ago, is worse today. Pt reports she is currently taking medications for an allergic reaction that has not yet fully subsided. Transition of care: patient was not received from another setting of care. Onset of symptoms was April 24, 2018. Risk Assessment: Do you want to hurt yourself or someone else? Patient reports no desire to harm self or others. Initial Sepsis Screen: Does the patient meet any 2 criteria? No. Patient's initial sepsis screen is negative. Does the patient have a suspected source of infection? No. Patient's initial sepsis screen is negative. Care prior to arrival: None. 12:54 Method Of Arrival: Ambulatory ss 12:54 Acuity: ODALYS 3 ss Historical: - Allergies: 12:59 Codeine; ss 12:59 Contraceptives; ss 12:59 Erythromycin; ss 12:59 Phenergan (IV); ss 12:59 Topamax; ss 12:59 Ultram (Itching); ss 12:59 Vicodin; ss 12:59 Iodinated Contrast Media - IV Dye; ss - PMHx: 12:59 Diverticulitis; GERD; hiatal hernia; Endometrosis; Anxiety; svt; PE; caverness angioma; ss hpv; sciatica; Migraines; IBS; iron deficiency anemia; pseudotumors; Kidney stones; - PSHx: 12:59 cardiac ablation; IVC filter placed and removed; Cholecystectomy; c section; gamma ss knife; Appendectomy; hemicolectomy; - Immunization history:: Adult Immunizations up to date. - Social history:: Smoking status: Patient uses tobacco products, 3-4 cigarettes/ day. - Ebola Screening: : Patient denies exposure to infectious person Patient denies travel to an Ebola-affected area in the 21 days before illness onset. - Family history:: not pertinent. Screenin:00 Abuse screen: Denies threats or abuse. Denies injuries from another. Nutritional kr2 screening: No deficits noted. Tuberculosis screening: No symptoms or risk factors identified. Fall Risk None identified. Assessment: 13:00 General: Appears in no apparent distress. comfortable, well groomed, well developed, kr2 well nourished, Behavior is calm, cooperative, appropriate for age. Pain: Complains of pain in chest Pain radiates to right lateral posterior chest Pain currently is 8 out of 10 on a pain scale. Quality of pain is described as squeezing, Pain began 1 week ago, worsened today Is continuous, Alleviated by rest, Aggravated by increased activity. Neuro: Level of Consciousness is awake, alert, obeys commands, Oriented to person, place, time, situation, Appropriate for age Facial symmetry appears normal, Intact. Cardiovascular: Capillary refill < 3 seconds in bilateral fingers Patient's skin is warm and dry. Respiratory: Airway is patent Respiratory effort is even, unlabored, Respiratory pattern is regular, symmetrical. GI: Abdomen is flat, non-distended, Patient currently denies nausea. : Urine is clear. EENT: Oral mucosa is moist. Derm: Skin is intact, is healthy with good turgor, Skin is pink, warm \T\ dry. Musculoskeletal: Circulation, motion, and sensation intact. 14:00 Reassessment: Patient appears in no apparent distress at this time. Patient and/or kr2 family updated on plan of care and expected duration. Pain level reassessed. Patient is alert, oriented x 3, equal unlabored respirations, skin warm/dry/pink. Patient states feeling better. 15:00 Reassessment: Patient appears in no apparent distress at this time. Patient and/or kr2 family updated on plan of care and expected duration. Pain level reassessed. Patient is alert, oriented x 3, equal unlabored respirations, skin warm/dry/pink. Patient states feeling better. 16:15 Reassessment: No changes from previously documented assessment. kr2 17:38 Reassessment: Patient appears in no apparent distress at this time. Patient and/or kr2 family updated on plan of care and expected duration. Pain level reassessed. Patient is alert, oriented x 3, equal unlabored respirations, skin warm/dry/pink. Patient states feeling better. 18:30 Reassessment: Patient appears in no apparent distress at this time. Patient and/or kr2 family updated on plan of care and expected duration. Pain level reassessed. Patient is alert, oriented x 3, equal unlabored respirations, skin warm/dry/pink. Patient states feeling better. 19:30 Reassessment: No changes from previously documented assessment. kr2 20:52 Reassessment: Patient appears in no apparent distress at this time. Patient and/or kr2 family updated on plan of care and expected duration. Pain level reassessed. Patient is alert, oriented x 3, equal unlabored respirations, skin warm/dry/pink. Patient states feeling better. Vital Signs: 12:59 BP 121 / 90; Pulse 78; Resp 16; Temp 97.1(TE); Pulse Ox 98% on R/A; Weight 82.1 kg; ss Height 5 ft. 3 in. (160.02 cm); Pain 8/10; 13:50 BP 124 / 85; Pulse 75; Resp 16; Pulse Ox 99% on R/A; kr2 15:04 BP 109 / 74; Pulse 64; Resp 17; Pulse Ox 97% on R/A; kr2 16:00 BP 110 / 64; Pulse 70; Resp 17; Pulse Ox 99% on R/A; kr2 17:37 BP 112 / 59; Pulse 66; Resp 17; Pulse Ox 99% on R/A; kr2 19:30 BP 108 / 70; Pulse 78; Resp 17; Pulse Ox 99% on R/A; kr2 20:52 BP 104 / 64; Pulse 76; Resp 16; Temp 98; Pulse Ox 99% on R/A; kr2 12:59 Body Mass Index 32.06 (82.10 kg, 160.02 cm) ED Course: 12:53 Patient arrived in ED. ag5 12:53 Alan Strong MD is Private Physician. ag5 12:55 Triage completed. ss 12:59 Arm band placed on right wrist. 13:00 Patient has correct armband on for positive identification. Bed in low position. Call kr2 light in reach. Side rails up X 1. awake overnight monitor on. Pulse ox on. NIBP on. Door closed. Warm blanket given. Head of bed elevated. 13:01 Russ De La Rosa MD is Attending Physician. [facility] 13:15 Inserted saline lock: 20 gauge in left antecubital area, using aseptic technique. Blood kr2 collected. Patient maintains SpO2 saturation greater than 95% on room air. 14:05 X-ray completed. Portable x-ray completed in exam room. Patient tolerated procedure mh1 well. 14:23 RAD In Process Unspecified. EDMS 14:32 Tracey Marshall, MARIBELL is Primary Nurse. kr2 16:06 Anjelica Valeroi MD is Hospitalizing Provider. paola 16:15 CT Chest Abdomen Pelvis W/O Contrast: oral only In Process Unspecified. EDMS 20:51 No provider procedures requiring assistance completed. Patient admitted, IV remains in kr2 place. Administered Medications: 13:34 Drug: NS 0.9% 1000 ml Route: IV; Rate: 75 ml/hr; Site: left antecubital; kr2 20:50 Follow up: Response: No adverse reaction; IV Status: Infusion continued upon admission kr2 13:48 CANCELLED (Duplicate Order): Aspirin 162 mg PO once paola 13:48 CANCELLED (Duplicate Order): Lovenox 1 mg/kg Sub-Q once paola 13:55 Drug: NS 0.9% 1000 ml Route: IV; Rate: 1 bolus; Site: left antecubital; kr2 15:00 Follow up: Response: No adverse reaction; IV Status: Completed infusion kr2 14:00 Drug: ProTONIX 40 mg Route: IVP; Site: left antecubital; kr2 15:00 Follow up: Response: No adverse reaction kr2 14:25 Drug: D50W 25 ml Route: IVP; Site: left antecubital; kr2 15:30 Follow up: Response: No adverse reaction; Blood sugar is elevated kr2 17:30 Not Given (Patient Refused): Lovenox 1 mg/kg Sub-Q once kr2 17:30 Drug: Flagyl 500 mg Volume: 100 ml; Route: IVPB; Rate: 200 ml/hr; Infused Over: 30 kr2 mins; Site: left antecubital; 18:01 Follow up: Response: No adverse reaction; IV Status: Completed infusion kr2 17:36 Drug: Aspirin 162 mg Route: PO; kr2 20:49 Follow up: Response: No adverse reaction kr2 18:01 Drug: levofloxacin 500 mg Volume: 100 ml; Route: IVPB; Infused Over: 60 mins; Site: kr2 left antecubital; 19:00 Follow up: Response: No adverse reaction; IV Status: Completed infusion kr2 Point of Care Testing: Blood Glucose: 15:19 Blood Glucose: 91 mg/dL; kr2 Ranges: Outcome: 16:09 Decision to Hospitalize by Provider. paola 20:51 Admitted to Tele accompanied by tech, via wheelchair, room 215, with chart, Report kr2 called to Juan 20:51 Condition: stable 20:51 Instructed on the need for admit, Demonstrated understanding of instructions. 20:53 Patient left the ED. kr2 Signatures: Dispatcher [employer] EDRuss Lackey MD MD cha Harvey, Martha mh1 Nelsy Harkins RN RN ss Tracey Marshall RN RN kr2 Lexus Cooper 5
--- NOTE | 2018-05-01 16:31 | RAD REPORT ---
EXAM DESCRIPTION: CT - Chest Abd Pelvis Wo Con - 05/01/2018 4:14 pm CLINICAL HISTORY: Chest and abdominal pain COMPARISON: 2016 TECHNIQUE: Computed axial tomography of the chest, abdomen and pelvis was obtained. Oral contrast wa s given. IV contrast was not requested. All CT scans are performed using dose optimization technique as appropriate and may include automated exposure control or mA/KV adjustment according to patient size. FINDINGS: The evaluation of mediastinum, katey, vessels and solid organs is limited secondary to the lack of IV contrast administration No mediastinal or hilar lymphadenopathy is seen. A pleural effusion is not present. A pericardial effusion is not seen. A lung consolidation is not present. The lungs are essentially clear. The liver, spleen, pancreas, and adrenals appear grossly normal Small bilateral nonobstructing renal calculi. Small hemorrhagic cyst upper pole left kidney Mild stranding adjacent to the proximal sigmoid colon. Diverticulosis. 4.5 centimeter left ovarian cystic mass. Minimal free fluid There is no evidence of diverticulitis. IMPRESSION: Mild sigmoid diverticulitis 4.5 centimeter left ovarian cystic mass likely benign ovarian cyst. Followup ultrasound in a couple m onths recommended
[2018-05-01] MEDS ORDERED: ACETAMINOPHEN 650MG/RECT SUPP PR PRN (16:40)
[2018-05-01] MEDS: METRONIDAZOLE 500mg IVPB 500 MG/100 ML BAG IV SCH (17:00)
[2018-05-01] MEDS: ONDANSETRON 4 MG/2 ML VIAL IV SCH ×2 (17:00→21:00)
[2018-05-01] MEDS ORDERED: ASPIRIN 81 MG CHEWABLE TABLET ONE (17:25)
[2018-05-01] MEDS ORDERED: ENOXAPARIN 80 MG/0.8 ML SQ ONE (17:26)
[2018-05-01] MEDS ORDERED: Levofloxacin500mg IV 500 MG/100 ML BAG IV ONE (17:26)
[2018-05-01] MEDS ORDERED: METRONIDAZOLE 500mg IVPB 500 MG/100 ML BAG IV ONE (17:26)
[2018-05-01] MEDS: FAMOTIDINE 20 MG/2 ML VIAL IV SCH (22:04)
[2018-05-01] MEDS: D5.45NS W/KCL 20MEQ 1,000 ML IV SCH (22:04)
[2018-05-01] MEDS: CIPROFLOXACIN 400mg IV 400 MG/200 ML BAG IV SCH (22:05)
[2018-05-01 22:11] LABS: Urine Blood 2+ (NEG); Urine Glucose NEGATIVE (NEG); Urine Protein NEGATIVE (NEG); Urine pH 5.5 (5.0-7.0)
[2018-05-02] MEDS: D5.45NS W/KCL 20MEQ 1,000 ML IV SCH ×3 (00:13→17:00)
[2018-05-02] MEDS: ONDANSETRON 4 MG/2 ML VIAL IV SCH ×6 (00:14→17:00)
[2018-05-02] MEDS: METRONIDAZOLE 500mg IVPB 500 MG/100 ML BAG IV SCH ×3 (00:15→17:41)
[2018-05-02 04:04] VITALS: BMI 31.8
[2018-05-02 06:05] LABS: Absolute Monocytes 1.1 K/uL (0.1-1.3); Absolute Neutrophil 6.1 K/uL (1.8-8.0); Basophils % 0.4 % (0-1.3); Hematocrit 40.8 % (36.0-45.0); Lymphocytes % 35.5 % (15.3-44.8); MCH 30.7 pg (27.0-35.0); MCV 89.4 fL (80-100); MPV 9.3 fL (7.6-11.3); Monocytes % 9.5 % (3.3-12.3); RBC Red Blood Cell Count 4.56 M/uL (3.86-4.86)
[2018-05-02 06:56] LABS: Albumin 2.6 g/dL (3.4-5.0); Bilirubin Total 0.3 mg/dL (0.2-1.0); Magnesium 2.2 mg/dL (1.8-2.4); Phosphorus 4.1 mg/dL (2.5-4.9); Potassium 3.7 mmol/L (3.5-5.1); Protein, Total 5.7 g/dL (6.4-8.2)
[2018-05-02] MEDS ORDERED: CETIRIZINE HCL 5 MG TABLET PO SCH (09:00)
[2018-05-02] MEDS: CIPROFLOXACIN 400mg IV 400 MG/200 ML BAG IV SCH (09:29)
[2018-05-02] MEDS: FAMOTIDINE 20 MG/2 ML VIAL IV SCH (09:30)
[2018-05-02 10:04] VITALS: TEMP 97.1
--- NOTE | 2018-05-02 12:52 | P.HP ---
Certification for Inpatient Patient admitted to: Inpatient With expected LOS: >2 Midnights Patient will require the following post-hospital care: None Practitioner: I am a practitioner with admitting privileges, knowledge of patient current condition, hospital course, and medical plan of care. Services: Services provided to patient in accordance with Admission requirements found in Title 42 Section 412.3 of the Code of Federal Regulations Patient History Date of Service: 05/01/18 Reason for admission: chest pain/ acute diverticulitis History of Present Illness: Patient is a 42-year-old female came to the hospital with a epigastric tenderness. Patient has had pain on and off for the last few days. She has a prior history of diverticulitis and was receiving outpatient treatment for this. She also developed issues with her hands and feet and developed a rash and they were bothering her. She went to the urgent care for the pruritus and was given Benadryl, prednisone, and Pepcid. She started developing pain in her chest and epigastric region. She also was having really bad reflux. She thought the chest pain was worrisome so she came into the hospital for further evaluation. After speaking with her felt like most of this was GI related, and that she could have GI consultation. Patient did not want to see any of the local GI doctor this social follow up as an outpatient with her GI physician. We will make sure there is no cardiac issues by monitoring on telemetry and continue treating her diverticulitis. Keep her NPO and may be started on liquid diet in the morning. Allergies codeine [Codeine] Allergy (Intermediate, Verified 05/01/18 22:14) facial swelling erythromycin lactobionate [From Erythrocin] Allergy (Intermediate, Verified 08/14 22:14) tongue swells hydrocodone bitartrate [From Vicodin] Allergy (Intermediate, Verified 05/01/18 22:14) facial swelling tramadol HCl [From Ultram] Allergy (Intermediate, Verified 05/01/18 22:14) Itching/Hives/Rash topiramate [From Topamax] Adverse Reaction (Intermediate, Verified 05/01/18 22: 14) tachycardia NSAIDS (Non-Steroidal Anti-Inflamma Adverse Reaction (Verified 05/01/18 22:14) Flare up of diverticulitis promethazine HCl [From Phenergan] Adverse Reaction (Verified 05/01/18 22:14) dystonic reaction to IV phenergan only Contracepti Allergy (Uncoded 05/01/18 22:14) Unknown Phenergan (IV Allergy (Uncoded 05/01/18 22:14) Unknown adhesives Adverse Reaction (Intermediate, Uncoded 05/01/18 22:14) blisters/redness all control pills Adverse Reaction (Intermediate, Uncoded 05/01/18 22:14) causes migraines Home Medications: Acetazolamide [Diamox*] 500 mg PO BEDTIME 05/01/18 Diphenhydramine [Benadryl*] 50 mg PO BEDTIME 05/01/18 Escitalopram [Lexapro*] 10 mg PO BEDTIME 05/01/18 Esomeprazole Mag Trihydrate [Nexium] 40 mg PO BEDTIME 05/01/18 Frovatriptan Succinate 2.5 mg PO PRN PRN 05/01/18 Lactobacillus Acidophilus [Probiotic] 1 cap PO BEDTIME 05/01/18 Melatonin 10 mg PO BEDTIME 05/01/18 Metoprolol Tartrate [Lopressor] 25 mg PO PRN PRN 05/01/18 Propranolol [Inderal LA*] 60 mg PO BEDTIME 05/01/18 - Past Medical/Surgical History Has patient received pneumonia vaccine in the past: No Diabetic: No -: gerd -: heneria -: endometrosis -: diverticulitis -: arthritist -: anxiety -: PE -: SVT -: HEMMOROIDS -: HPV -: IBS -: eye -: lap edin -: laposcopy -: gamma-knife -: append -: cardiac ablation -: hemmoroidectomy - Family History Father Family History: Reviewed- Non-Contributory - Social History Smoking Status: Current every day smoker Alcohol use: Yes CD- Drugs: No Caffeine use: Yes Place of Residence: Home Review of Systems 10-point ROS is otherwise unremarkable Physical Examination - Vital Signs Temperature: 97.1 F Blood Pressure: 109/62 Pulse: 62 Respirations: 18 Pulse Ox (%): 97 - Physical Exam General: Alert, In no apparent distress, Oriented x3 HEENT: Atraumatic, PERRLA, Mucous membr. moist/pink, EOMI, Sclerae nonicteric Neck: Supple, 2+ carotid pulse no bruit, No LAD, Without JVD or thyroid abnormality Respiratory: Clear to auscultation bilaterally, Normal air movement Cardiovascular: Regular rate/rhythm, Normal S1 S2, No murmurs Gastrointestinal: Normal bowel sounds, Soft and benign, Non-distended, Tenderness Musculoskeletal: No clubbing, No swelling, No tenderness Integumentary: No rashes Neurological: Normal gait, Normal speech, Normal strength at 5/5 x4 extr, Normal tone, Sensation intact, Cranial nerves 3-12 intact, Normal affect Lymphatics: No axilla or inguinal lymphadenopathy - Studies Laboratory Data (last 24 hrs) 05/01/18 13:15: PT 11.5, INR 0.97 05/01/18 13:15: WBC 22.5 H*, Hgb 15.0, Hct 44.2, Plt Count 387 05/01/18 13:15: Sodium 137, Potassium 3.5, BUN 24 H, Creatinine 0.80, Glucose 67 L, Magnesium 2.5 H, Total Bilirubin 0.3, AST 21, ALT 72, Alkaline Phosphatase 93, Lipase 132 Assessment & Plan - Problems (Diagnosis) (1) Chest pain, rule out acute myocardial infarction Current Visit: Yes Status: Acute (2) Esophagitis Current Visit: Yes Status: Acute (3) GERD (gastroesophageal reflux disease) Current Visit: Yes Status: Acute (4) Leukocytosis Current Visit: Yes Status: Acute (5) Acute diverticulitis Onset Date: 05/02/18 Current Visit: Yes Status: Acute - Plan Plan: 1. IV antibiotics 2. IV hydration 3. Pain control 4. PPI 5. Outpatient GI followup 6. Echocardiogram to evaluate cardiac status 7. Liquid diet in a.m. 8. GI and DVT prophylaxis Discharge Plan: Home Plan to discharge in: Greater than 2 days - Advance Directives Does patient have a Living Will: No Does patient have a Durable POA for Healthcare: No - Code Status/Comfort Care Code Status Assessed: Yes Code Status: Full Code Critical Care: No Time Spent Managing PTS Care (In Minutes): 50
[2018-05-02 13:12] VITALS: O2SAT 96
[2018-05-02] MEDS ORDERED: POTASSIUM 25 MEQ EFFERV TAB PO ONE (15:18)
[2018-05-02 17:52] VITALS: BP 123/58
--- NOTE | 2018-05-02 18:34 | CON ---
Date of Consultation: 05/02/2018 Reason For Service: Acute diverticulitis. History Of Present Illness: This is the case of a 42-year-old patient with epigastric tenderness and also periumbilical tenderness. The patient was found to have acute diverticulitis admitted to the [facility] and surgical consultation was done. The patient has history of diverticulitis in the past. Apparently, she had an episode like that several weeks ago for which she took antibiotics. She even had surgery before colon resection and has for the diverticulum too. She had an extensive surgical h istory. She feels better today. There is no dysuria, hematuria, hematochezia, or melena. No recent traveling out of the country. No family members sick at home. Past medical history reviewed includ ing Vicodin, Ultram, Topamax, and Phenergan. Past Medical History: Includes GERD, endometriosis, diverticulitis, anxiety, PE, cardiac arrhythmias . Past Surgical History: Including hemorrhoidectomy, cardiac ablation, appendectomy, cholecystectomy, eye surgery. Family History: Noncontributory. Social History: She smokes occasionally. She does not drink alcohol. Review of Systems: Ten points otherwise unremarkable. Physical Examination: General: The patient is awake and alert. HEENT: Pupils are equal and reactive. Anicteric. Neck: Supple. Chest: Clear. Abdomen: Soft and depressible. No guarding or rebound or peritoneal signs. Patient last night had left lower quadrant tenderness apparently is improving. Pelvic, Rectal, and Breasts: Deferred. Extremity: Good capillary refill. Imaging: CAT scan of the abdomen and pelvis interpreted by Dr. Brownign as a 4.5 cm left ovarian cyst , also mild sigmoid diverticulitis. Patient does not have a sigmoid colon because she had previous c olectomy so that will be the part of the transverse colon that now become the sigmoid colon. There i s also no evidence of diverticulitis although the impression says mild sigmoid diverticulitis, so we going to clarify this. Assessment: This is a 42-year-old patient with multiple surgical interventions. Also, a CAT scan th at september suggest diverticulitis by Dr. Browning. The patient feels better right now with no pain. We a re going to proceed with diet. She has to follow up with her pivot maker to see the status of her colonoscopies from a surgical standpoint, no surgical intervention at this moment. She was advi sed importance of discussing ovarian cyst findings with her certified personal trainer thank you. WATSON Voice ID: [id number] Report ID: [id number]
--- NOTE | 2018-05-03 07:52 | ECHO ---
HEIGHT: 5 ft 3 in WEIGHT: 180 lb 0 oz DATE OF STUDY: 05/02/[address]: Josué Ridley MD 2-DIMENSIONAL: YES M.MODE: YES DOPPLER: YES COLOR FLOW: YES TDS: NO PORTABLE: NO DEFINITY: NO BUBBLE STUDY: NO DIAGNOSIS: CHEST PAIN CARDIAC HISTORY: CATHERIZATION: YES SURGERY: [*] PROSTHETIC VALVE: NO PACEMAKER: NO MEASUREMENTS (cm) DIASTOLIC (NORMALS) SYSTOLIC (NORMALS) IVSd 0.9 (0.6-1.2) LA Diam 3.3 (1.9-4.0) LVEF 78% LVIDd 4.6 (3.5-5.7) LVIDs 2.5 (2.0-3.5) %FS 46% LVPWd 0.9 (0.6-1.2) Ao Diam 2.6 (2.0-3.7) 2 DIMENSIONAL ASSESSMENT: RIGHT ATRIUM: NORMAL LEFT ATRIUM: NORMAL RIGHT VENTRICLE: NORMAL LEFT VENTRICLE: NORMAL TRICUSPID VALVE: NORMAL MITRAL VALVE: NORMAL PULMONIC VALVE: NORMAL AORTIC VALVE: NORMAL PERICARDIAL EFFUSION: NONE AORTIC ROOT: NORMAL LEFT VENTRICULAR WALL MOTION: NORMAL DOPPLER/COLOR FLOW: NORMAL COMMENTS: NORMAL 2D ECHOCARDIOGRAM WITH DOPPLER. TECHNOLOGIST: Estephania GRIFFITH
== END 2018-05-02 18:00 | disposition home or self-care (01) | DRG 392 ==
LOC: ER 12:51 → ERHOLD 16:43 → 2ND 20:31
PROVIDERS: ADMIT Family Medicine; ATTEND Family Medicine
DX: K57.32 Diverticulitis of large intestine without perforation or abscess without bleeding (principal); K21.0 Gastro-esophageal reflux disease with esophagitis; F41.9 Anxiety disorder, unspecified; Z86.711 Personal history of pulmonary embolism; I49.9 Cardiac arrhythmia, unspecified; F17.200 Nicotine dependence, unspecified, uncomplicated; N83.202 Unspecified ovarian cyst, left side; Z90.49 Acquired absence of other specified parts of digestive tract
CPT/HCPCS: 36415; 71045; 71250; 74176; 80048; 80053; 80076; 81003; 81025; 82962; 83690; 83735; 83880; 84100; 84145; 84484; 84703; 85025; 85379; 85610; 85652; 86140; 87040; 93005; 93306; 94760; 96361; 96365; 96367; 96375; 99285; C9113; J0744; J1650; J2405; J7030

== ENCOUNTER 2020-09-27 07:44 | Emergency (ER) | payer BC ==
--- OUTSIDE RECORDS SUMMARY | 2020-09-27 07:50 | XMS REPORT | Continuity of Care Document ---
:1975 Author Organization [facility] t Address [address] [place] [address] Care Team Providers Name Role Phone Lillian CONNER Primary Care Physician Unavailable SYSTEM, NOT IN Attending Clinician Unavailable Helena Robbins MD Attending Clinician Bridget MENDOZA Attending Clinician Unavailable Bridget Mendoza MD Attending Clinician Angelica Nieto Attending Clinician Unavailable Antonio Kim Attending Clinician Don LARES Attending Clinician Eduard REYNA Attending Clinician Unavailable Lakhwinder HORN Attending Clinician Iliana HORN Attending Clinician DON Attending Clinician Unavailable Keith Jimenez RN Attending Clinician Unavailable GENEVA ABREU Attending Clinician Unavailable Geneva Abreu MD Attending Clinician Nic REYNA, Julio Attending Clinician Unavailable Sylvain EXAMINER OF CURRENCY, Y Attending Clinician Unavailable Valeriy HENDRICKSON Attending Clinician Unavailable Julio Diamond RN Attending Clinician Unavailable MARIN Attending Clinician Unavailable Rocky Crespo Attending Clinician ROCKY MICHAUD Attending Clinician Unavailable Gilbert Carrasco MD Attending Clinician Provider, Urgent Care Attending Clinician Unavailable Nikia Funes MD Attending Clinician Dinorah LEUNG Attending Clinician DEBORAH Attending Clinician Unavailable Lillian Conner MD Attending Clinician Deborah LARES Attending Clinician Lillian CONNER Attending Clinician Unavailable Neno CARDENAS Attending Clinician Reji REYNA Attending Clinician Unavailable Jackie Jimenez MD Attending Clinician Doctor Unassigned, Name Attending Clinician Unavailable Mahsa Ralph MD Attending Clinician Saima HORN Attending Clinician Sheryl Khanna MD Attending Clinician CANDACE HUFFMAN Attending Clinician Unavailable Bridget MENDOZA Admitting Clinician Unavailable BENITEZ Admitting Clinician Unavailable Payers Payer Name Policy Type Policy Effective Date Expiration Date [facility] ce Number BCBSANTHEM TANGELA [id number] [id number] Methodis t 2017-Presen tPPO BCBS PPO POS OUT [id number] 2017 OF STATE GENERIC 00:00:00 Problems Condition Condition Condition Status Onset Resolution Last Treating Co mments Source Name Details Category Date Date Treatment Clinician Date Anxiety Anxiety Disease Active 07-21 Anderso 00:00: n 00 Diverticul Diverticul Disease Active M D itis itis 07-21 Anderso 00:00: n 00 Endometrio Endometrio Disease Active M D sis sis 07-21 Anderso 00:00: n 00 Gastroesop Gastroesop Disease Active M D hageal hageal 2-22 Anderso reflux reflux 00:00: n disease disease 00 with with hiatal hiatal hernia hernia Insulin Insulin Disease Active MD resistance resistance 2-22 An derso 00:00: n 00 Irritable Irritable Disease Active bowel bowel 2-22 Anderso syndrome syndrome 00:00: n 00 Abnormal Abnormal Disease Active [place] EKG EKG 06-20 [facility] 00:00: st 00 SOB SOB Disease Active [place] (shortness (shortness 1-22 Me thodi of breath) of breath) 00:00: st 00 Dyslipidem Dyslipidem Disease Active [place] ia ia 06-20 [facility] 00:00: st 00 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 Pruritus Pruritus Disease Active 2019-05 [place] ani ani 06-09 Methodi 00:00: st 00 Anal polyp Anal polyp Disease Active 2019-05 M D 1-11 Anderso 00:00: n 00 Breast Breast Disease Active 2019-05 MD screening screening 0-28 Mason rso 00:00: n 00 Family Family Disease Active 2019-05 MD history of history of 0-28 An derso malignant malignant 00:00: n neoplasm neoplasm 00 of of pancreas pancreas Family Family Disease Active 2019-05 MD history of history of 0-28 An derso malignant malignant 00:00: n neoplasm neoplasm 00 of ovary of ovary Family Family Disease Active 2019-05 MD history of history of 0-28 An derso malignant malignant 00:00: n neoplasm neoplasm 00 of thyroid of thyroid Family Family Disease Active 2019-05 MD history of history of 0-28 An derso malignant malignant 00:00: n neoplasm neoplasm 00 of of prostate prostate Family Family Disease Active 2019-05 Overview: history of history of 0-28 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:00: with n mutation mutation 00 documente d BRIP-1 mutation Headache Problem Active 2020-08-11 Mem oria (finding) 09-24 00:35:06 l Headache 00:00: Alex smith (finding) 00 Active 09/24/2016 Problem 08/11/2020 [facility] Anal Anal Disease Active 2015-[address] [facility] condyloma condyloma [facility] - 00:[facility]: Medical 00 Center 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 [place] supraventr supraventr 2- Me thodi icular icular 00:00: st tachycardi tachycardi 00 a a Papilledem Papilledem Disease Active 2015-05 [place] a of both a of both 2-09 Meth chelita eyes due eyes due 00:00: st to to 00 increased increased intracrani intracrani al al pressure pressure Internal Internal Disease Active 2015-05 [place] hemorrhoid hemorrhoid 1- Me thodi s with s with 00:00: st complicati complicati 00 on on External External Disease Active 2015-05 [place] hemorrhoid hemorrhoid 1- Me thodi s s 00:00: st 00 Condyloma Condyloma Disease Active 2015-05 [place] acuminatum acuminatum 1-13 Me thodi 00:00: st 00 Irritable Irritable Disease Active 2015-05 [place] bowel bowel 0-23 [facility] syndrome syndrome 00:00: st 00 Gastrointe Gastrointe Disease Active 2015-05 [place] stinal stinal 0-23 [facility] ulcer due ulcer due 00:00: st to to 00 Helicobact Helicobact er pylori er pylori Current Current Disease Active Brandon smoker smoker 9-17 [facility]i 00:00: st 00 Diverticul Diverticul Disease Active [facility] [place] osis of osis of 17 [facility] intestine intestine 00:00: st 00 IIH IIH Disease Active Brandon (idiopathi (idiopathi 9-16 Me thodi c c 00:00: st intracrani intracrani 00 al al hypertensi hypertensi on) on) Papilledem Papilledem Disease Active [place] a of both a of both 9-16 Meth chelita eyes eyes 00:00: st 00 Nasal step Nasal step Disease Active [place] visual visual 9-16 [facility] field field 00:00: st defect defect 00 Cavernous Cavernous Disease Active [place] hemangioma hemangioma 9-16 Me thodi of brain of brain 00:00: st 00 Hemangioma Hemangioma Disease Active Overview : of of 16 Data Anderso intracrani intracrani 00:00: migrated n al al 00 from GE structure structure Centricit y on 01/21/15. Neck pain Problem Active 2020-08-11 Me moria (finding) 01-29 00:35:06 l Neck 00:00: [place] pain 00 (finding) Active 01/30/2016 Problem 08/11/2020 [facility] Pain in Problem Active 2020-08-11 Edison christy elbow 01-29 00:35:06 l (finding) Pain in 00:00: Herm gloria elbow 00 (finding) Active 01/30/2016 Problem 08/11/2020 [facility] Benign Benign Disease Active intracrani intracrani 7-27 An derso al al 00:00: n hypertensi hypertensi 00 on on Radial Problem Active 2020-08-11 Memor ia neuropathy 6-10 00:35:06 l (disorder) Radial 00:00: Herm gloria neuropathy 00 (disorder) Active 11/07/2015 Problem 08/11/2020 [facility] Lumbar Problem Active 2020-08-11 Memor ia radiculopa 5-12 00:35:06 l thy Lumbar 00:00: [place] (disorder) radiculopa 00 thy (disorder) Active 10/09/2015 Problem 08/11/2020 [facility] Paresthesi Problem Active 2020-08-11 M emoria a 5-12 00:35:06 l (finding) 00:00: [place] Paresthesi 00 a (finding) Active 10/09/2015 Problem 08/11/2020 [facility] Fibromyalg Problem Active 2020-08-11 M emoria ia 00:35:06 l (disorder) Alex n Fibromyalg ia (disorder) Active Problem 08/11/2020 [facility] Kidney Problem Active 2020-08-11 Memor ia stone 00:35:06 l (disorder) Kidney Herm gloria stone (disorder) Active Problem 08/11/2020 [facility] Allergies, Adverse Reactions, Alerts Allergy Allergy Status Severity Reaction(s) Onset Inactive Treating Comm ents Source Name Type Date Date Clinician Other Propensi Active Other (See 2019-05 Contracep [place] ty to Comments) 07-10 tives Methodi adverse 00:00: give head st reaction 00 aches. s Iodinate Propensi Active Anaphylaxis 2019-05 [place] d ty to 06-09 [facility] Contrast adverse 00:00: st Media reaction 00 s to drug Other Propensi Active Other (See 2015-[address] ty to Comments) 07-21 tives [facility] adverse 00:[facility]: cause Medical reaction 00 migraines Cente r s Adhesive Propensi Active Other (See BLISTERS [facility] to Comments) 02-15 [facility] - adverse 00:00: Medical reaction 00 Center s Codeine Propensi Active Swelling [facility] 02-15 [facility] - adverse 00:00: Medical reaction 00 Center s Erythrom Drug Active Swelling Tongue [facility] ycin Allergy 02-15 swelling [facility] - 00:[facility]: Medical 00 Center Prometha Propensi Active IV GIVES [facility] zine ty to 02-15 DYSTONIC [facility] - adverse 00:00: REACTION Medical reaction 00 Center s Topirama Propensi Active Other (See SVT [facility] ty to Comments) 02-15 [facility] - adverse 00:00: Medical reaction 00 Center s Tramadol Propensi Active Itching can take [facility] ty to 02-15 with [facility] - adverse 00:00: benadryl Medical reaction 00 Center s Hydrocod Propensi Active Swelling Facial [facility] one-Acet ty to 02-15 swelling [facility] - aminophe adverse 00:00: Medical n reaction 00 Center s Hydrocod Propensi Active [place] one ty to 12-15 [facility] adverse 00:00: st reaction 00 s to drug Prometha Propensi Active IV GIVES [place] zine ty to 12-15 DYSTONIC [facility] adverse 00:00: REACTION st reaction 00 s to drug Adhesive Propensi Active Other (See Blisters, [place] Tape-Ana ty to Comments) 10-28 red and Meth chelita icones adverse 00:00: swelling st reaction 00 Blisters s to skin drug Codeine Propensi Active Swelling [place] ty to 10-28 [facility] adverse 00:00: st reaction 00 s to drug Erythrom Propensi Active Swelling Tongue [place] ycin ty to 10-28 swelling [facility] adverse 00:00: st reaction 00 s to drug Ortho-No Propensi Active Other (See migraines [place] vum ty to Comments) 10-28 Metho di (21) adverse 00:00: st reaction 00 s to drug Topirama Propensi Active Other (See SVT [place] te ty to Comments) 10-28 [facility] adverse 00:00: st reaction 00 s to drug Tramadol Propensi Active Itching gen [place] ty to 10-28 itching [facility] adverse 00:00: st reaction 00 s to drug Hydrocod Propensi Active Swelling, Facial [place] one-Acet ty to Rash 10-28 swelling Method i aminophe adverse 00:00: st n reaction 00 s to drug codeine [facility] [place] adhesive DA [facility] tape 8-12 [facility] [place] hydrocod DA Active [facility] one 8-11 [facility] [place] erythrom DA [facility] ycin 8-11 [facility] [place] prometha DA Active [facility] zine 8-11 [facility] [place] codeine< codeine< Active Memori a sup>1, sup>1, l 2</sup> 2</sup> Clay erythrom erythrom Active Memori a ycin<sup ycin<sup l >3</sup> >3</sup> Alex smith prometha prometha Active Memori a zine<sup zine<sup l >4</sup> >4</sup> Alex smith topirama topirama Active Memori a te<sup>5 te<sup>5 l </sup> </sup> [place] Adhesive Adhesive Active Memori a Tape<sup Tape<sup l >6</sup> >6</sup> Alex n acetamin acetamin Active Memori a ophen-HY ophen-HY l DROcodon DROcodon Alex n e<sup>7< e<sup>7< /sup> /sup> traMADol traMADol Active Memori a <sup>8</ <sup>8</ l sup> sup> Clay Cipro Cipro Active Medium Memoria l [place] Family History Family Member Diagnosis Comments Start Date Stop Date Source Natural father No Known Problems Flo stoluis Anabaptist Maternal grandfather Cancer [place] [facility] Maternal grandfather Lung cancer MD [place] Natural mother No Known Problems Flo stoluis Anabaptist Paternal aunt Cancer [place] hodist Paternal aunt Pancreatic cancer MD [facility] brothers Paternal grandmother Cancer [place] [facility] Paternal grandmother Ovarian cancer MD [place] Cousin Prostate cancer [facility]in Thyroid cancer MD Joanna smith Other Breast cancer MD [place] Paternal cousin Thyroid cancer MD Bobbi reagan Paternal grandfather Pituitary tumor MD [place] Natural sister Other MD Joanna smith Social History Social Habit Start Date Stop Date Quantity Comments Source Sex Assigned At [facility] Cigarettes smoked 2020-08-18 2020-08-18 MD Mason melendez current (pack per 00:00:00 00:00:00 day) - Reported Cigarette pack-years 2020-08-18 2020-08-18 MD Peyman brothers 00:00:00 00:00:00 Tobacco use and 2020-08-18 2020-08-18 Never used [facility] exposure 00:00:00 00:00:00 Alcohol intake 2020-08-18 2020-08-18 Ex-drinker MD Joanna smith 00:00:00 00:00:00 (finding) Tobacco Comment 2020-03-31 2020-03-31 quit 2019 MD [facility] 00:00:00 00:00:00 Alcohol Comment 2020-03-31 2020-03-31 Very rarely maybe MD [place] 00:00:00 00:00:00 once every 3-6 months History of tobacco 2019-05-23 Current smoker MD [place] use 00:00:00 Smoking Status Start Date Stop Date Source Former smoker 2020-08-18 00:00:00 2020-08-18 00:00:00 MD Garcia son Current every day 2017-11-04 00:00:[address] [facility] Medications Ordered Filled Start Stop Current Ordering Indication Dosage Frequency Signature Comments Components Source Medication Medication Date Date Medication? Clinician (SIG) Name Name acetaminoph Yes 2{capsu Take 2 M D en 500 mg 3-29 le} capsules Sandeep o coapsule 13:40: by mouth n 08 as needed. metoprolol Yes 25mg Take 25 mg M D tartrate 3-29 by mouth Anderso (LOPRESSOR 13:40: as needed. n ORAL) 08 acetaZOLAMI Yes 1{capsu Take 1 M D DE (Diamox 3-29 le} capsule by And erso Sequels) 13:40: mouth n 500 mg 08 daily. capsule ibuprofen Yes 400mg Take 400 MD (ADVIL,MOTR 3-29 mg by Anderso IN) 200 mg 13:40: mouth as n tablet 08 needed. phenylephri Yes 2{tbl} Take 2 MD ne/DM/aceta 3-29 tablets by An derso minop/GG 13:40: mouth as n (TYLENOL 08 needed. COLD AND FLU SEVERE ORAL) cetirizine Yes 10mg Take 10 mg M D (ZyrTEC) 10 - by mouth Mason rso mg tablet 13:40: daily. n 08 ibuprofen Yes Genetic 800mg Take 1 MD (ADVIL,MOTR 3-02 mutation tablet An derso IN) 800 mg 00:00: (800 mg) n tablet 00 by mouth every 8 (eight) hours as needed for moderate pain. acetaminoph Yes Genetic 1000mg Take 2 MD en (Tylenol 3-02 mutation tablets A nderso Extra 00:00: (1,000 mg) n Strength) 00 by mouth 500 mg every 6 tablet (six) hours as needed for mild pain. senna Yes Genetic 1{tbl} Take 1 MD (Senna Lax) 3-02 mutation tablet by Anderso 8.6 mg 00:00: mouth n tablet 00 daily as needed for constipati on. traMADol Yes Family 50mg Take 1 MD (ULTRAM) 50 3-02 history of tablet (50 Anderso mg tablet 00:00: gene mg) by n 00 mutation mouth every 8 (eight) hours as needed for moderate pain. oxyCODONE No Genetic 5mg Take 1 MD (Roxicodone 3-02 02 mutation tablet (5 Anderso ) 5 mg 00:00: 00:00 mg) by n immediate 00 :00 mouth release every 8 tablet (eight) hours as needed for severe pain. diphenhydrA No 50mg Take 50 mg MD MINE-acetam 07-21 by mouth And erso inophen 15:29: 00:00 as needed. n (TYLENOL 53 :00 PM) 25-500 mg tab potassium Yes TAKE 1 MD citrate 1-28 TABLET BY Joanna (UROCIT-K) 00:00: MOUTH n 10 mEq SR 00 TWICE A tablet DAY propranolol 2019-05 Yes 80mg QD Take 80 mg [facility] [place] (INDERAL 2-17 by mouth Meth chelita LA) 120 MG 03:01: every st 24 hr 25 evening. capsule metoprolol 2019-05 Yes 25mg Take 25 mg [place] tartrate 2-17 by mouth Methodi (LOPRESSOR) 03:01: as needed s t 25 mg 25 (palpitati tablet ons). acetaZOLAMI 2019-05 Yes 500mg QD Take 500 [place] (DIAMOX) 2-17 mg by [facility] 500 mg 03:01: mouth st capsule 25 every evening. omeprazole 2019-05 Yes 40mg QD Take 40 mg [place] (PriLOSEC) 2-17 by mouth Metho di 40 MG 03:01: daily. st capsule 25 buPROPion 2019-05 Yes 150mg QD Take 150 [place] XL 2-17 mg by Methodi (WELLBUTRIN 03:01: mouth st XL) 150 MG 25 every 24 hr evening. tablet frovatripta 2019-05 Yes 2.5mg Take 2.5 [place] n (FROVA) 2-17 mg by Methodi 2.5 MG 03:01: mouth once st tablet 25 as needed for migraine. May repeat in 2 hours if unresolved . Do not exceed 7.5 mg in 24 hours. pregabalin 2019-05 Yes 100mg [id number] Take 100 [facility] (LYRICA) 2-17 [id number] mg by Meth chelita 100 MG 03:01: 3D mouth 3 st capsule 25 (three) times a day. sertraline 2019-05 Yes 25mg QD Take 25 mg [place] (ZOLOFT) 25 2-17 by mouth Meth chelita MG tablet 03:01: every st 25 evening. cetirizine 2019-05 Yes Take by [place] (ZyrTEC) 10 2-17 oral Method[facility] mg capsule 03:01: route. st 25 colestipol 2019-05 Yes 1g Q.5D Take 1 g [place] (COLESTID) 2-17 by mouth 2 Met hodi 1 gram 03:01: (two) st tablet 25 times a day. traMADol 2019-05- No 50mg Take 50 mg MD (ULTRAM) 50 2-15 12-26 by mouth. An derso mg tablet 00:00: 05:59 n 00 :00 traMADoL 2019-05- No acute pain 50mg Q6H Take 1 [facility] (Ultram) 50 2-15 12-25 tablet (50 M ethodi mg tablet 00:00: 23:59 mg total) st 00 :00 by mouth every 6 (six) hours as needed for moderate pain for up to 10 days .acute pain. ferrous 2019-05- No 324mg QD Take 324 [place] gluconate 07-10-11 mg by Method[facility] (FERGON) 09:56: 00:[address] 324 MG 42 :00 daily with tablet breakfast. melatonin-p 2019-05- No Take by Mark minaya yridoxine, 07-10 mouth. Method i vit B6, 09:55: 00:00 st (MELATONIN, 48 :00 WITH B6,) 5-1 mg tablet cholecalcif 2019-05- No Vitamin D3 Geoff kaya, 07-10 [facility] vitamin D3, 09:55: 00:00 st (VITAMIN 17 :00 D3) 1,000 unit capsule cyanocobala 2019-05- No Vitamin Mark minaya min, 07-10 B12 [facility]i vitamin 09:55: 00:00 st B-12, 10 :00 (VITAMIN B-12) 1,000 mcg tablet, sublingual dexlansopra 2019-05- No 60mg QD Take 60 mg Geoff zole 07-10- by mouth Methodi (DEXILANT) 09:54: 00:[address] 60 mg 53 :00 capsule Zoloft 2019-0 Yes 25 mg, PO, Memor ia 3-20 Daily, 0 l 18:57: Refill(s) Lyrica 2020-0 Yes 100 mg, Memoria 3-20 PO, TID, 0 l 18:57: Refill(s) pregabalin 2019-0 Yes 1{capsu Take 1 MD (Lyrica) 3-20 le} capsule by Jose so 100 mg 00:00: mouth 3 n capsule 00 (three) times a day. sertraline 2019-0 Yes 1{tbl} Take 1 MD (Zoloft) 25 3-20 tablet by And erso mg tablet 00:00: mouth n 00 daily. 24 HR 2019-0 Yes 150 mg = 1 Memori a Bupropion 1-17 tab, PO, l Hydrochlori 17:00: Q24H, 0 Her villagomez de 150 MG 00 Refill(s) Extended Release Tablet [Wellbutrin ] Wellbutrin 2019-0 Yes PO, 0 Memori a 1-17 Refill(s) l 15:19: frovatripta Yes = 1 tab, Me moria n 2.5 mg 1-17 PO, Q24H, l oral tablet 15:19: PRN NEEDED FOR HEADACHE, # 9 tab, 3 Refill(s), Pharmacy: [facility][id number] buPROPion 2019-0 Yes 1{tbl} Take 1 MD (WELLBUTRIN 1-17 tablet by And erso XL) 150 mg 00:00: mouth n 24 hr 00 daily. tablet Prilosec Yes 40 mg, PO, Mem oria 9-13 Daily, 0 l 14:47: Refill(s) omeprazole 2018-0 Yes 1{capsu Take 1 MD (PriLOSEC) 9-13 le} capsule by And erso 40 MG 00:00: mouth n capsule 00 daily. tamsulosin 1- No .4mg Take 0.4 MD (FLOMAX) 8-17 02-22 mg by Anderso 0.4 mg 24 00:00: 00:00 mouth n hr capsule 00 :00 daily. frovatripta Yes = 1 tab, Me moria n 2.5 mg 5-10 PO, Q24H, l oral tablet 14:29: PRN Herm gloria 28 NEEDED FOR HEADACHE, # 9 tab, 3 Refill(s), Pharmacy: [facility] #[id number] propranolol Yes 120 mg = 1 Memoria 120 mg oral 5-10 cap, PO, l capsule, 14:28: Daily, # Sarah nn extended 00 30 cap, 5 release Refill(s), Pharmacy: [facility] #[id number] Xyzal Yes PO, BID, 0 Memori a 5-10 Refill(s) l 14:10: Clay 00 Ranitidine Yes 150 mg = 1 M emoria 150 MG Oral 5-10 tab, PO, l Tablet 14:10: BID, # 60 Alex n [Zantac] 00 tab, 0 Refill(s) propranolol Yes 1{capsu Take 1 M D (INDERAL 5-10 le} capsule by Joseesa COLLINS) 120 mg 00:00: mouth n 24 hr 00 daily. capsule levocetiriz 2020- No 10mg Take 10 mg MD ine 5-10 02-22 by mouth Anderso dihydrochlo 00:00: 00:00 daily. n ride (XYZAL 00 :00 ORAL) propranolol No = 1 cap, Me moria 80 mg oral 4-09 PO, Daily, l capsule, 14:43: # 30 [place] extended 03 unknown release unit, Refill(s) 5, Pharmacy: [facility] #[id number] propranolol No = 1 cap, Me moria 80 mg oral 1-11 PO, Daily, l capsule, 23:46: # 30 [place] extended 55 unknown release unit, Refill(s) 2, Pharmacy: [facility] #[id number] hyoscyamine 2017-05- No 125ug Place 125 MD (LEVSIN/SL) 2-12 02-22 mcg under An derso 0.125 mg SL 00:00: 00:00 the tongue n tablet 00 :00 as needed. frovatripta 2017-05 No 2.5 mg = 1 Memoria n 2.5 mg 0-12 tab, PO, l oral tablet 14:38: Daily, PRN Clay 00 for migraine headache, may repeat x 2 with 2 hours between doses if needed, # 9 tab, 2 Refill(s) Esomeprazol 2017-05 Yes 40 mg = 1 M emoria e 40 MG 0-12 cap, PO, l Enteric 14:38: Daily, # Alex n Coated 00 30 cap, 0 Capsule Refill(s) [Nexium] Escitalopra 2017-05 Yes 10 mg = 1 M emoria m 10 MG 0-12 tab, PO, l Oral Tablet 14:38: Daily, # Stevo rmgloria [Lexapro] 00 30 tab, 0 Refill(s) Lopressor 2017-05 Yes 25 mg, PO, Me moria 0-12 PRN, 0 l 14:38: Refill(s) Clay 00 propranolol No See Memori a 80 mg oral 12-30 Instructio l capsule, 13:50: ns, # 90 Sarah nn extended 35 unknown release unit, Refill(s) 3, TAKE 1 CAPSULE DAILY, Pharmacy: [facility] acetaZOLAMI Yes 500mg QD Take [address] [place] (DIAMOX) 6-08 mg by [facility] - 500 mg 12 09:11: mouth Medical hr capsule 56 nightly . Cent er dexlansopra Yes 60mg QD Take [address] [facility] zole 60 mg 6-08 by mouth [facility] - capsule 09:11: nightly . Medic al Center propranolol Yes 80mg QD Take [address] [facility] [facility] (INDERAL) 6-08 by mouth [facility] - 80 MG 09:11: nightly . Medical tablet 56 [place] diphenhydrA Yes 50mg QD Take [address] [facility] MINE 6-08 by mouth [facility] - (BENADRYL) 09:11: nightly. Med ical 50 MG 56 Center tablet melatonin 5 Yes 5mg QD Take [address] mg Tab 6-08 by mouth [facility] - tablet 09:11: nightly. Medical Center frovatripta Yes 1{tbl} Take 1 MD n (FROVA) 8-04 tablet by Jose so 2.5 MG 00:00: mouth as n tablet 00 needed. furosemide 2020- No Tachycardia 40mg QD Take 1 [place] (LASIX) 40 3-02 12-11 tablet (40 Me thodi mg tablet 00:00: 00:00 mg total) st 00 :00 by mouth daily. potassium 2019- No Tachycardia 20meq QD Take 1 [place] chloride 07-29 tablet (20 Meth chelita (K-DUR) 20 00:00: 00:00 mEq total) st MEQ CR 00 :00 by mouth tablet daily. Last dose 2 weeks ago LIALDA 1.2 2015-05 Yes 1.2g QD Take 1.2 g [place] gram EC 07-01 by mouth [facility]i tablet 00:00: daily. st 00 mesalamine 2015-05 Yes 1{tbl} Take 1 MD (Lialda) 07-01 tablet by Sandeep neil 1.[address] 00:00: mouth n tablet 00 twice daily. ALIGN 4 mg 2015-05- No TAKE 1 TAB [place] capsule 07-01 BY MOUTH Methodi 00:00: 00:[address] 00 :00 DULoxetine 2015-05- No 60mg QD Take 60 mg [place] (CYMBALTA) 06-24 by mouth Meth chelita 60 MG 00:00: 00:[address] capsule 00 :00 daily. Vital Signs Vital Name Observation Time Observation Value Comments Source WEIGHT 2020-07-29 06:40:00 91.2 kg WEIGHT 2020-07-29 06:40:00 91.2 kg WEIGHT 2020-07-21 08:52:12 92.3 kg WEIGHT 2020-07-21 08:52:12 92.3 kg WEIGHT 2020-05-19 11:06:05 92.8 kg WEIGHT 2020-05-19 11:06:05 92.8 kg HEIGHT 2020-03-31 08:27:00 159.5 cm WEIGHT 2020-03-31 08:27:00 93.4 kg HEIGHT 2020-03-31 08:27:00 159.5 cm WEIGHT 2020-03-31 08:27:00 93.4 kg Systolic blood 2020-08-25 13:34:41 120 mm[Hg] pressure Diastolic blood 2020-08-25 13:34:41 63 mm[Hg] MD Bobbi reagan pressure Heart rate 2020-08-25 13:34:41 81 /min MD Garcia son Body temperature 2020-08-25 13:34:41 36.5 Janett MD A nderson Oxygen saturation in 2020-08-25 13:34:41 97 /min MD [place] Arterial blood by Pulse oximetry Body height 2020-08-25 10:33:00 160 cm [facility] An[facility] Body weight 2020-08-25 10:33:00 92.534 kg [facility] [facility] BMI 2020-08-25 10:33:00 36.14 kg/m2 [facility] Heart Rate 2020-08-08 19:49:00 [facility] [place] Respitory Rate 2020-08-08 19:49:00 Memori al [place] Height 2020-08-08 19:49:00 160.02 cm [facility] [place] Weight 2020-08-08 19:49:00 [facility] [place] BMI Calculated 2020-08-08 19:49:00 Memori al [place] Systolic (mm Hg) 2020-08-08 19:49:00 Edison rial Clay Diastolic (mm Hg) 2020-08-08 19:49:00 Mem orial [place] Respiratory rate 2020-07-29 18:00:00 20 /min MD Peyman brothers Body weight 2020-07-29 12:40:00 91.2 kg MD Garcia son BMI 2020-07-29 12:40:00 35.85 kg/m2 MD Garcia son Systolic blood 2020-07-04 15:54:00 109 mm[Hg] [place] An[facility]aptist pressure Diastolic blood 2020-07-04 15:54:00 62 mm[Hg] [place] [facility] pressure Heart rate 2020-07-04 15:54:00 74 /min Brandon Anabaptist Oxygen saturation in 2020-07-04 15:54:00 99 /min Brandon Anabaptist Arterial blood by Pulse oximetry Body temperature 2020-05-13 14:46:00 36 Janett [place] Anab[facility]ist Respiratory rate 2020-05-13 14:46:00 16 /min [place] [facility] Body height 2020-03-31 14:27:00 159.5 cm MD Garcia son Systolic (mm Hg) 2019-08-17 18:50:00 Edison rial Clay Diastolic (mm Hg) 2019-08-17 18:50:00 Mem [facility] Heart Rate 2019-08-17 18:50:00 [facility] Respitory Rate 2019-08-17 18:50:00 [facility] Temperature Oral (F) 2019-08-17 18:50:00 98.1 F [facility] Height 2019-08-17 18:50:00 160.02 cm [facility] Weight 2019-08-17 18:50:00 [facility] BMI Calculated 2019-08-17 18:50:00 Memori [facility] Systolic (mm Hg) 2019-06-15 14:59:00 Edison [facility] [place] Diastolic (mm Hg) 2019-06-15 14:59:00 [facility] [place] Heart Rate 2019-06-15 14:59:00 [facility] Respitory Rate 2019-06-15 14:59:00 [facility] Height 2019-06-15 14:59:00 160.02 cm [facility] Weight 2019-06-15 14:59:00 [facility] BMI Calculated 2019-06-15 14:59:00 [facility] [place] Systolic (mm Hg) 2019-02-09 14:20:00 Edison rial [place] Diastolic (mm Hg) 2019-02-09 14:20:00 [facility] [place] Heart Rate 2019-02-09 14:20:00 [facility] Respitory Rate 2019-02-09 14:20:00 [facility] Height 2019-02-09 14:20:00 160.02 cm [facility] Weight 2019-02-09 14:20:00 [facility] BMI Calculated 2019-02-09 14:20:00 Memori al [facility] Respitory Rate 2018-10-06 13:55:00 [facility] [place] Heart Rate 2018-10-06 13:55:00 [facility] Systolic (mm Hg) 2018-10-06 13:55:00 Edison [facility] [place] Diastolic (mm Hg) 2018-10-06 13:55:00 [facility] Weight 2018-10-06 13:55:00 [facility] BMI Calculated 2018-10-06 13:55:00 [facility] Height 2018-10-06 13:55:00 160.02 cm [facility] Weight 2018-03-10 14:14:00 [facility] BMI Calculated 2018-03-10 14:14:00 [facility] [place] Height 2018-03-10 14:14:00 160.02 cm [facility] Respitory Rate 2018-03-10 14:14:00 Venu Garcia Heart Rate 2018-03-10 14:14:00 Huey Clay Systolic (mm Hg) 2018-03-10 14:14:00 Edison Williamson Diastolic (mm Hg) 2018-03-10 14:14:00 Meron Williamson Procedures Procedure Date / Time Performing Clinician Source Performed PATHOLOGY SURGICAL 2020-07-29 14:52:00 Koko Mendoza MD on INTERPRETATION CYTOLOGY NON-ART THERAPIST 2020-07-29 14:46:00 Koko Mendoza MD INTERPRETATION POC GLUCOSE SCREEN 2020-07-29 12:57:00 Koko Mendoza MD on LAPAROSCOPY WITH REMOVAL OF 2020-07-29 12:17:00 Koko Mendoza MD ADNEXAL STRUCTURES (PARTIAL OR TOTAL OOPHERECTOMY AND/OR SALPINGECTOMY COMPLETE BLOOD COUNT W/ 2020-07-27 16:49:00 Criselda Hansen MD DIFFERENTIAL COMPREHENSIVE METABOLIC 2020-07-27 16:49:00 Criselda Hansen MD PANEL TYPE AND SCREEN 2020-07-27 16:49:00 Criselda Hansen MD HUMAN CHORIONIC 2020-07-27 16:49:00 Criselda Hansen MD GONADOTROPIN, QUALITATIVE, URINE URINALYSIS WITH MICROSCOPIC 2020-07-27 16:49:00 Regino Hansen IF INDICATED Results CBC 2020-07-27 16:49:00 Criselda Hansen MD MANUAL DIFFERENTIAL 2020-07-27 16:49:00 Criselda Hansen MD And erson GLUCOSE LEVEL 2020-07-27 16:49:00 Criselda Hansen MD ELECTROLYTE PANEL 2020-07-27 16:49:00 Criselda Hansen MD Jose son SERUM CREATININE 2020-07-27 16:49:00 Criselda Hanseners on .GLOMERULAR FILTRATION RATE 2020-07-27 16:49:00 Regino Hansen CALCIUM LEVEL TOTAL 2020-07-27 16:49:00 Criselda Hansen MD And erson ALBUMIN LEVEL 2020-07-27 16:49:00 Criselda Hansen MD ALKALINE PHOSPHATASE 2020-07-27 16:49:00 Criselda Hansen MD derson ABORH 2020-07-27 16:49:00 Criselda Hansen MD ALANINE AMINOTRANSFERASE 2020-07-27 16:49:00 Criselda Hansen ANTIBODY SCREEN 2020-07-27 16:49:00 Criselda Hansen MD ASPARTATE AMINOTRANSFERASE 2020-07-27 16:49:00 Criselda Hansen MD TOTAL PROTEIN 2020-07-27 16:49:00 Criselda Hansen MD FRACTIONATED BILIRUBIN 2020-07-27 16:49:00 Criselda Hansen MD BLOOD UREA NITROGEN 2020-07-27 16:49:00 Criselda Hansen MD And erson CLOT EXPIRATION DATE 2020-07-27 16:49:00 Criselda Hansen MD TMP INTERPRETATION ANTIBODY 2020-07-27 16:49:00 Regino Hansen SCREEN NEGATIVE XR CHEST 2 VW 2020-07-25 20:34:13 Rell Abreu MD Jose son CONFIRM ABORH TYPE 2020-07-21 13:26:00 Koko Mendoza MD on URINE CULTURE 2020-07-21 13:16:00 Criselda Hansen MD COMPLETE BLOOD COUNT W/ 2020-07-21 13:16:00 Koko Mendoza MD DIFFERENTIAL COMPREHENSIVE METABOLIC 2020-07-21 13:16:00 Koko Mendoza MD PANEL TYPE AND SCREEN 2020-07-21 13:16:00 Koko Mendoza MD HC HIV 1/2 AG AND AB 4TH 2020-07-21 13:16:00 Criselda Hansen GEN HEMOGLOBIN A1C 2020-07-21 13:16:00 Criselda Hansen MD HUMAN CHORIONIC 2020-07-21 13:16:00 Criselda Hansen MD GONADOTROPIN, QUALITATIVE, URINE URINALYSIS WITH MICROSCOPIC 2020-07-21 13:16:00 Regino Hansen IF INDICATED Results CBC 2020-07-21 13:16:00 Koko Mendoza MD MANUAL DIFFERENTIAL 2020-07-21 13:16:00 Koko Mendoza MD GLUCOSE LEVEL 2020-07-21 13:16:00 Koko Mendoza MD BLOOD UREA NITROGEN 2020-07-21 13:16:00 Koko Mendoza MD [facility] ELECTROLYTE PANEL 2020-07-21 13:16:00 Koko Mendoza MD SERUM CREATININE 2020-07-21 13:16:00 Koko Mendoza MD .GLOMERULAR FILTRATION RATE 2020-07-21 13:16:00 Koko Mendoza MD CALCIUM LEVEL TOTAL 2020-07-21 13:16:00 Koko Mendoza MD ALBUMIN LEVEL 2020-07-21 13:16:00 Koko Mendoza MD ALKALINE PHOSPHATASE 2020-07-21 13:16:00 Koko Mendoza MD rson ABORH 2020-07-21 13:16:00 Koko Mendoza MD ANTIBODY SCREEN 2020-07-21 13:16:00 Koko Mendoza MD ALANINE AMINOTRANSFERASE 2020-07-21 13:16:00 Koko Mendoza MD ASPARTATE AMINOTRANSFERASE 2020-07-21 13:16:00 Koko Mendoza TOTAL PROTEIN 2020-07-21 13:16:00 Koko Mendoza MD FRACTIONATED BILIRUBIN 2020-07-21 13:16:00 Koko Mendoza MD derson URINALYSIS MICROSCOPIC 2020-07-21 13:16:00 Criselda Hansen MD CLOT EXPIRATION DATE 2020-07-21 13:16:00 Koko Mendoza MD rson TMP INTERPRETATION ANTIBODY 2020-07-21 13:16:00 Koko Mendoza MD SCREEN NEGATIVE TMP HIV 1/2 AG&AB PATH 2020-07-21 13:16:00 Criselda Hansen MD INTERP EKG, 12-LEAD (SCHEDULED) 2020-07-21 00:00:00 Criselda Hansen CV TREADMILL STRESS TEST 2020-07-04 15:56:06 Beto Funes [facility] TTE COMPLETE, W CONTRAST, W 2020-07-04 15:22:07 Beto Funes [facility] DOPPLER ([id number]) US BREAST COMPLETE 2020-06-27 16:41:00 Garrett Michaud MD And erson BILATERAL Rocky MAMMO DIGITAL SCREENING 2020-06-27 16:09:00 Garrett Michaud BILATERAL W FISH Rocky HUMAN CHORIONIC 2020-05-19 16:05:00 Criselda Hansen MD Anderso n GONADOTROPIN, QUALITATIVE, URINE SURGICAL PATHOLOGY REQUEST 2020-05-13 14:13:00 Gabbie Robbins NC AN ELECTIVE SUPRAGLOTTIC 2020-05-13 12:56:02 Iv[address] Jessica EXCISION, POLYP, RECTAL, 2020-05-13 12:29:00 Gabbie Robbins TRANSANAL APPROACH POC GLUCOSE 2020-05-13 11:06:00 Gabbie Robbins ABO AND RH CONFIRMATION 2020-05-13 11:04:00 Gabbie Robbins COVID-19 QUALITATIVE PCR 2020-05-12 08:56:00 Gabbie Robbins ECG PRE/POST OP 2020-05-09 11:57:13 Nikki Escamilla [facility] BASIC METABOLIC PANEL 2020-05-09 10:59:00 Nikki Escamilla on [facility] ESTIMATED GFR 2020-05-09 10:59:00 Nikki Escamilla [facility] HC COMPLETE BLD COUNT 2020-05-09 10:56:00 FrancineNikki weber on [facility] W/AUTO DIFF TYPE AND SCREEN 2020-05-09 10:56:00 FrancineNikki weber [facility] HCG QUALITATIVE, SERUM 2020-05-09 10:56:00 FrancineNikki weber [facility] SCREEN ZINVITAE 2020-03-31 18:23:00 Shirin Cabrera MD HC 2019-NCOV COVID-19 2020-03-28 19:19:00 Madison Conner MD Plan of Care Planned Activity Planned Date Details Comments Source Future Scheduled 2021-01-[address] [facility] - Test 00:00:00 (Season Ended) [code = Medic al Center INFLUENZA VACCINE (Season Ended)] Future Scheduled 2020-12-28 INFLUENZA VACCINE [place] [facility] 00:00:00 [code = INFLUENZA VACCINE] Future Scheduled 2020-05-[address] [facility] - Test 00:00:00 (12+) [code = Medical Center DEPRESSION SCREENING (12+)] Future Scheduled [address] [facility] 00:00[facility]00 [facility] cervix (procedure) [code = 556283052] Future Scheduled 1998 Screening for [facility] 00:00:00 malignant neoplasm of cervix (procedure) [code = 260868553] Future Scheduled [address] [facility]:00 (procedure) [code = Medical Center 61674358] Future Scheduled 1996 DTAP/TDAP/TD VACCINES [facility] Test 00:00:00 (1 - Tdap) [code = Medical C enter DTAP/TDAP/TD VACCINES (1 - Tdap)] Future Scheduled 1995-11-13 HEPATITIS C SCREENING [facility] Test 00:00:00 [code = HEPATITIS C Medical Center SCREENING] Future Scheduled 1995-11-13 Hepatitis C screening [place] [facility] Test 00:00:00 (procedure) [code = 991566319] Future Scheduled 1993 COVID-19 VACCINE (1) [place] [facility] [facility] Test 00:00:00 [code = COVID-19 VACCINE (1)] Future Scheduled 1983-11-[address] [facility] - Test 00:00:00 0-64 YRS (1 of 1 - Medical C enter PPSV23) [code = PNEUMOCOCCAL VACCINE 0-64 YRS (1 of 1 - PPSV23)] Encounters Start End Encounter Admission Attending Care Care Encounter Source Date/Time Date/Time Type Type Clinicians Facility Department ID 2020-03-24 Outpatient GEORGES NEWMAN MDA [id number] 16:07:10 BAY smith 2020-08-25 2020-08-25 Outpatient SOFÍA MENDOZA MDA MDA [id number] 08:28:25 08:54:51 KOKO smith 2020-08-25 2020-08-25 Outpatient BENITEZ [facility] [id number] [place] 00:00:00 00:00:00 GABBIE [address] 2020-08-08 2020-08-08 Outpatient Judy [facility] [id number] 13:30:00 23:59:59 Kalebtyree Alvarez 2020-07-29 2020-07-29 Outpatient SOFÍA MENDOZA, MDA ART THERAPIST [id number] MD 05:23:00 15:16:00 KOKO smith 2020-07-27 2020-07-27 Outpatient SOFÍA HANSEN, MDA MDA [id number] 10:00:00 23:59:00 CRISELDA Hughesangelica quicko luis 2020-07-27 2020-07-27 Outpatient SOFÍA MENDOZA, MDA MDA [id number] 00:00:00 00:00:00 KOKO smith 2020-07-25 2020-07-25 Outpatient SOFÍA ABREU, MDA MDA [id number] 14:28:58 23:59:00 RELL smith 2020-07-21 2020-07-21 Outpatient SOFÍA HANSEN, MDA MDA [id number] 11:04:10 14:06:15 CRISELDA Mason quicko luis 2020-07-21 2020-07-21 Outpatient BARTOLOME HAIRH MDA MDA [id number] 12:44:46 12:44:46 Sandeep smith 2020-07-21 2020-07-21 Outpatient SOFÍA MENDOZA, MDA MDA [id number] 07:36:09 09:52:28 KOKO smith 2020-07-21 2020-07-21 Outpatient SOFÍA MENDOZA, MDA MDA [id number] MD 07:16:09 07:22:02 KOKO smith 2020-07-04 2020-07-04 Outpatient FUNES [facility] [id number] [place] 00:00:00 00:00:00 BETO [address] 2020-07-04 2020-07-04 Outpatient MARIN [facility] [id number] [place] [address] 00:00:00 00:00:00 BETO [address] 2020-06-27 2020-06-27 Outpatient SOFÍA MICHAUD, MDA MDA [id number] 10:11:33 10:11:33 GARRETT Cuevas rso n 2020-06-27 2020-06-27 Outpatient SOFÍA MICHAUD MDA MDA [id number] 09:24:59 09:24:59 GARRETT Cuevas rso n 2020-06-26 2020-06-26 Office Danilo ADRYBridget [id number] 14:08:01 17:04:12 Visit Claudy Hunt AMBULATOR 350.1.13.21 Y 0.2.7.2.686 [id number] 2020-06-23 2020-06-23 Outpatient [facility] [id number] [place] 00:00:00 00:00:[address] 2020-06-20 2020-06-20 Outpatient MARIN [facility] [id number] [place] 00:00:00 00:00:00 BETO [address] 2020-05-25 2020-05-25 Urgent Provider, [facility] [id number] 12:33:13 14:10:07 Care [facility] 350.1.13.10 Care [place] 4.2.7.2.686 Professio [id number] nal 044 Office [address] 2020-05-19 2020-05-19 Outpatient SOFÍA MENDOZA MDA MDA [id number] 10:49:10 11:59:27 KOKO smith 2020-05-19 2020-05-19 Outpatient SOFÍA HANSEN MDA MDA [id number] 10:05:24 10:42:16 CRISELDA Cuevas rso n 2020-05-13 2020-05-[address] [id number] [place] 00:00:00 00:00:00 GABBIE [address] 2020-05-12 2020-05-12 Outpatient [facility] [id number] [place] 00:00:00 00:00:00 GABBIE [address] 2020-05-09 2020-05-09 Outpatient [facility] [id number] [place] 00:00:00 00:00:00 GABBIE [address] i 2020-04-09 2020-04-09 Outpatient [facility] [id number] [place] 00:00:00 00:00:00 GABBIE [address] 2020-03-31 2020-03-31 Outpatient EL DEBORAH, MDA MDA [id number] MD 12:11:30 12:18:23 SHIRINCHARLES Hopkins rashaad smith 2020-03-31 2020-03-31 Outpatient EL CHECKA, MDA MDA [id number] MD 08:17:32 10:45:45 MADISON Hugheser so n 2020-03-31 2020-03-31 Outpatient EL CHECKA, MDA MDA [id number] MD 10:41:16 10:41:16 MADISON Hugheser so n 2020-03-31 2020-03-31 Outpatient EL CHECKA, MDA MDA [id number] MD 10:41:03 10:41:03 MADISON Jose so n 2020-03-31 2020-03-31 Outpatient EL CHECKA, MDA MDA [id number] MD 08:08:27 08:08:34 MADISON Hugheser so n 2020-03-28 2020-03-28 Outpatient BRIDGES, MDA MDA [id number] MD 22:46:02 22:46:02 RESTORATIONISM Ande rso n 2020-03-28 2020-03-28 Outpatient BRIDGES, MDA MDA [id number] MD 15:08:01 15:08:01 RESTORATIONISM Mason rso n 2020-03-28 2020-03-28 Outpatient BRIDGES, MDA MDA [id number] MD 15:07:15 15:07:15 RESTORATIONISM Ande rso n 2020-03-28 2020-03-28 Outpatient BRIDGES, MDA MDA [id number] MD 15:06:32 15:06:32 RESTORATIONISM Ande rso n 2020-03-28 2020-03-28 Outpatient EL CHECKA, MDA MDA [id number] MD 14:06:23 14:19:41 MADISON Jose so n 2020-02-26 2020-02-26 Office Tony, [facility] [id number] 09:15:06 12:28:43 Visit Leo AMBULATOR 350.1.13.21 P Y 0.2.7.2.686 [id number] 2020-02-17 2020-02-17 Urgent Provider, [facility] [id number] 15:01:25 15:49:14 Care [facility] 350.1.13.10 [place] 4.2.7.2.686 [facility] [id number] nal 044 Office [address] One 2020-02-17 2020-02-17 Orders Doctor LEONELA [id number] 00:00:00 00:00:00 Only Unassigned, MARCELL 350.1.13.10 [place] [facility] 4.2.7.2.686 [id number] 2019-10-10 2019-10-10 Outpatient BENITEZ, [facility] [id number] [place] 00:00:00 00:00:00 GABBIE [address] 2019-08-17 2019-08-17 Outpatient GERARDO KimMISCHER MHMISCHER [id number] 13:30:00 23:59:59 Kaleb 05 Antonio 2019-07-05 2019-07-05 Office BARRIE Ralph [id number] 15:12:22 17:27:38 Visit Olivia AMBULATOR 350.1.13.21 [facility] 0.2.7.2.686 [id number] 2019-06-15 2019-06-15 Outpatient RUSSELL KimSCHER MHMISCHER [id number] 09:00:00 23:59:59 Kaleb 04 Antonio 2019-02-09 2019-02-09 Outpatient GERARDO KimMISCHER MHMISCHER [id number] 09:30:00 23:59:59 Kaleb 03 Antonio 2019-01-24 2019-01-24 Office Albaro Landaverde [facility] 1.2.840.114 [id number] 08:36:35 10:18:38 Visit AMBULATOR 350.1.13.21 Y 0.2.7.2.686 [id number] 2019-01-13 2019-01-13 Emergency [facility] [id number] 02:17:53 06:01:00 Ml Patel 350.1.13.10 [place] 4.2.7.2.686 [place] [id number] 2018-10-06 2018-10-06 Outpatient Judy MHMISCHER MHMISCHER [id number] 09:00:00 23:59:59 Kaleb 02 Antonio 2018-03-10 2018-03-10 [facility] [id number] 09:15:00 23:59:59 Kaleb 01 Antonio Results Test Description Test Time Test Comments Results Result Comments Source Pathology Surgical Interpretation 2020-08-02 00:19:00 Test Item Value Reference Range Interpretation Comme nts Diagnosis a0xhwUBbOQEdhLO4ZaCwEWNrp8ubv5TrvSIbdXRhECtqwEZoffMuyf55zTJ4mE30HM8wGQAoLmN9HZNy dwK2Nqy8VVCgUROivTSnN745r6utm8ruxjBdjXZ5tMfzHRLwOPDmBCbvJQLuMkNsES2jLgvzVOMgfcAo MJ88QBEbRPCfLZ5aHDQrhWxpwPrgchL5cYDgkslioRJ (test code yOKAcTeVOjSldjDSoILygl6ZobyjlzahtH2bdqYqeRINyeYevK8qxan1rBNFvvun9BSUgFcfiIFVidbU cFFYvyBxjnQhyfeS4mSPusqszpVXuYMU0OuXuAIH7f6RwQxWrkNIzXWVhcjMFQ6hnaRPuuL== = 36) Gross r1cygZZiVNBrcOK6ScPrUKXyy1ets8PvkLPjsFWeCTgcsNZdqcQwsi25yJF8mY05RG9hHBImVuE8NMXm aiI1Bhi7AQSoLKMwtSMwB507v3ivb7dwajAgkAY0rFmzJRDux7eaWRHspHEaFHG3REpdtJInHLBtZYMi PHg2LRFvCXepzUHrSB0wnNkxUpofyTxmw0RvoLDmYHi Descriptio tNZCbWJClSUdeDRJjW8FJBCGvYwP6FAR3TSZdXSn2ZEzlQ6IHZOUzPZB8YdB3NMBvLnD9VNe4SZRMVo0 cKig9LwV8Maw0VSI0GfB5YIekiUOcWKkoSbxmSJdaKNOrzPCyOJenCnJmRCBlHLawUaPiHX3rqDqiyCK uihznGGAdXkVeLHmfnWDcRXIvXT64FZLbVEWlNG0sZV n (test RyzTewdZcvwzS8cHPxxogyVvzgFGQsioSzZdkiMREeGtHlONd9HKZyWbEqn6cvLNEaXFBpvaotffJfPV vdsTM7PE4ystjfFqayDVWognPeIUIlemR5XAGos53edBA3sU3zQE4tSN49NMA1BMwxAeQnuFQuNtTskL SxIrMrE75zZAXeMub9adTucMu2TFZjp7kdtvO8VJUrI code = tYey5x2sFTtlYOdO9xwHPAgbQ9upxcxqYEiYILimXujjXsireQ3kFTnBDb4VgQfQ22sdT8tgFGeP0YjP JN1DCDeGLBvmVTzzaRgflTeqSAhfYNsfDEaWGYqvytgAM8xXN95BOQ7XGe2IsZqcJZlBfJmeSAfZsHyX 19dZWWoRgo3seExkPt5PCZdy8kypeX6ELOwDdAco2d2 3843794283 lPMftTBfK0luLRIgiF7eojlqvMPgSQQjbSyudNhgxbL3bAVaJBc0FzCeN59ohQ4agJDuL9YwVBF4PQUc ZgYwbORrfxQhxdQttKTywGGvnMHhJLKccscdGESHfZXnov3jvCDqpGPoNAGtrsUfVlHsvKbagSHkGLkh b8DmqcsaoeRtlaAen47mdPXbtW6xCSOtXWAkkvJiM5M ) yd0YnxKLmqC1jqGarBUZQLUkbv4EbIW9nnNJtPMIhRAMxUDnck7KpbRhwcY4tCZ8yfjbhQweuAqOYuxW rjCRrSBWvLNFuLMXqKDhdrKFzQYK4jP4xHCHikD7lghR8JWPbWSSsmijjxzAsDZbluOS9JG6naqzpR5I 8HGC8zkLoU2Zdn3z2iGCye9DzaDZ1cbhgy8F1dQDoBJ Rgl611jQ33RTkmCJOhH8cmhHVlOLDgPB80MXAclW7nZ5tnTFXfJkp6mGYzI01odJJqfHBsQPzlpHcgjZ ObI1Ehy2WewJNxnWeaCWG9WE5orPTisRKhOsRtK8FeyzdjPbTvA0Y7RAM9xmGpD9UvcXHkxhTkESGoBC SdEUDyp1SrLCWxBY0vszWxPApcFsKtryHgS7NctoHuN ERrvpF2wvRkkHIhzV5vYHFomqumQEVlE9VYQUgLLkYBC2NCMrLJMZjtHdadKrIrODVqBOJiQNFoJD6gn ML9fGYrsBrrm0VuoHuiasIzSEEqKCEhegQiphFimZDwhHEfoHH6VYM5KAKlCYJsVPXbVB7cgF3cXCCfx 5YtCvVbuZ7kdNLxFCE6GrFbEyGqZP16aLHgnLxwpM5s i2VjkWRkNEOam2IpqKQ5iaEvtd14jZ0qmFvwBEWzYVdxSS83IMW6DVBjATIfePduGCa8ZGqySYIprxts iEirTVRjFUBdeD9wqrznFTHcHJVlwxNqacIsY9TkYMNimAJbZDM5cS4bYGEvRS9kFDVrlPpyJTv5LMU0 Gd2lrYBhMCdvHKNqEBHsTlifuvIdJFqtLWWcEE6hYVV cfZzkkKovuuT1wSIiTUGuIWAqcXjsOUo1CKxkLFJcsdbcjFBilPT5MEwxdB5mdDNnzOvxKDm0AGDrCY0 YTeGkMW82TBN3UAIsYGUbqWlhBOk9RUukJXOokklyhX2ixIXrLCGcunoqrw47RWG5v7fviKLhRFkvFxb iyLKwnsC9JCtCIIRPGJeYExOnPH2dOJcNSbkUQXzBId zePBDgSlvvtTPFUBD7BMrghHvieEe8i1fynIVoo3s7ELfoAIS0uDOIq0reaCZjGNspHidveJJqgbE9LQ fERHHERYfSZpUxJO9eWBwBNgyGVnQ9XtPnWYY0RXdMX6IEdLA1Jfv0PPp9iRguYyeinwMoaCPnAbYcqC 0wlYpgkB8pNaNpIFkgUBJiP6WkU6ZhxnF8m3vvpZjbo 1SsqJSsAD7sdBKjsM== Disclaimer i9gsbDZiCQGisTAdNqSgVBYnEVSno4fwNKMsxMWfZeMcDfFiNyKtGyikwMBpNVIrJhHfn4wqu155gTUb m1vyPFHoUfV2jCJiEUGrgWWxK095DJLvQPgtq5dus4ZqXMTagQRpt9I0HTJKnhspiKl1iMezA27gw8J5 ZfhfA8xoWXPzUHWkU9DgQO5gQLMvCeo9CIB0LNA9XYX (test code uSVGyD2SjNT8yRJQbjRCpOYd2k8favUcbKMSvMXF2d0kgWLzwksLdWW5qjn7tjTg4a6zdthWoCNXkSZU caTTJBBPlE8AaoZfkQw7xdXk1zOilWhkhPYY5Fkk7GW6wck90jhh6xEdhGGRojjliFjT2QMbuKGSzfxq bPGe1FVqiKEMuaUS4GZEkwIFeF2XiCQKiTT1yngu6UM = 9844) H5GIvxEVIzHpT5XDCstBHpTYXjqGkzEYadg960WIX8DyVuKC8pB1Igz3S6gE8dzZCnSHNjnESsXeWdXS Ibvr0uvZSwFZmge3TeJLY1jeZ0lGCcjZLzSIBvTY41Cekty4EqRyupHIQ0KVKwskJoq6Bic4rxUcLrad LqV1pqO7FwCBUfNJIzLUOgRqDvtgEjq6Rhb5IywNKgv Hg5w4uaMSTmIPTluUgte3wlPYN4WCUwU3D0hPHsv7ghHHbaIZEdqIV9dqT4NEZmgBNdY6XaoU0jWEIdB H4soee6f5ayBMR5LHsbQNFjXpB1mtZ8FCSvuGUtQTAhsUrbGDedh720GLU2MoBwKDYuw6YbM0UyfRxsW 67lfKfbU26fNPCefOswhT4ovSbumX4gOePrYtQfSZdn rVfkvWXswtdvYQfkllC9CDbojgepSSIwSTszF1pfUhPkMCIvrGjaWIlvj7SxKKWyDQWsShfzmuK2PWML j38nPQEqv9DiGXIadM8mxBZtWMzaplSvpJM9VZprtkCpAhBwqqLhOQKduL0zAPFpIW7jMWXuafPjfg5h zgIwXMKwDWSsB3EgwisswUqwfzGeGRCbby8yqwVaHIU 4PDNKLC1KIYRuUILha14cSKMpiMzmkZ6cdVGbufNdYYAkb3SsoT5cqUFAYLUiN6bcGY9jBOafo5WiaBV jqXKbqNO4MNQmj1XsItZvchGwsKAowFSgB9JvwVolB2zyAEHyYPMjxcHqeDYzx6EzXNTzjAY7eVEiEL1 IHgWTp89oFBYaLFYQmjWgBNGpsEwhuLF5mrW5bH1wDq SIVrSvfXWfrBHnVjpoEWTad262ig4opgZ0RVCxYEIirxujb1VeRHTuMSHqbC81RQJiGIGbzy9gbpxncG AznpUsH3Htiza0zX2yOVVdGVbyNYEmCMJkRwOujMFwVuEnLsBvgTniiZmuZMbiTwZdPMUoTOllW5xaZn FcZnMyMlxwYXJ9 [employer] [id number] 16:56:00 Test Item Value Reference Range Interpretation Comments Gross Description (test a1rdfDAjDYXnhEXXJY code = [id number]) IwMVxhbnNpXHNwbHRw W9TrgeqoZRqlNW9eLM 0ofLeuxNRhrXCeIL8E XGRlZmYxXHBhcGVydz EyMjQwXHBhcGVyaDE1 QYRkCP1cnyxsEBmrAM rlUQYtaqQ7DSHnaLDs K7BqGETyJN4wndypIB F5THvqdZ6hhrJXLmfl Tl6lqIInrQaiLuYhTy NoYXJzZXQwXGZuaWwg IVIuVYq4kJ1SNldtVZ C4CAHEOtmmUHZlGN2Z d4pcYCBheWEaVVU8TF xcaWQgNTEwMDAgXFx0 DLFuSEcqrOQuVF8whO spVrcvxRube7KbjUOv XGlkIDUxMDAyIFxcZG BqTZ7CDmGqGWOjRLc8 YsUqTYl7EZg5XK6TBi CyWDAjRTo8XIa1FyYa KDb8VZqwXP0TEEY7Xq h6PgOmVaR5LTqfVyJh XHQgMiBcXGYgQXJpYW wgXFxmcyAxMCBcXGZi EFczYaisYAqeZ37xdY gvkH6vVztqmdOaDBO1 XHBhciANClxwbGFpbl xlcGljTmVzdERvYzEg DQpcbHRycGFyXGxpbj BccmluMCANClxsdHJj fFomjtWcGRQ7RYRxzR BTdGFpbiBTbGlkZXNc pDHpGI4KUdRfVK4fHb BccHJvdGVjdHtcZmll kPJ9PTkwEjhelY6srT BIWVBFUkxJTksgbmFt WU9CBALYHbSPRQ60Lr W9MsI0IIxstPoiVbjb ynIpwYOoBmIKdX2bwY VhciBccHJvdGVjdDB7 ZTVrLJyfp4gfCBZzPK unr0RsIGdXSFJWCM6K ZV2gnRQ0W7uDCLSKI4 xRhKQ0h2xfnUDlo9k2 HNmeBLO0lDVuVJHdn4 4waNusVepqqKA9JTlm EzmadC7zzNCXPCWNDp pOIhwkwrAzTG6BARuP AN9HzJU2c8srtBYix9 e3GFemYRT8rRtucCPs flaviZTpkGsdqy20AZ N2NPSaGuIyRNHdcFje y5yiwRMdDGljChxxvF ZyulU3KHwVWQSWPDiS FrPoBT9xOYbRC4RAGd G3LcU8LyJ0RPybdRjp ZmxkcnNsdCBcJzFDfX 1tpVwnkV9dnVRqS1qc ZnMyMFxwYXIgDQpccH JvdGVjdHtcZmllbGR7 KAhiTdmcwH2snWQTAK PCGddQDlbkooEcSZ5W DZARJfVWIB58YeD6Ir V2D8jwlZvwTmuhsySy oJQtPmPLaL0QwNCdxP 5nbjLjk37oZO93txR7 TEPgYznbW9z6u8Iugk DkkIT9B6E7aW5wXWUq V1qhrYQ0GLjtIbiqpA V0QDqaRqrlgX1ieSFC WVBFUkxJTksgbmFtZT 2PZVLOIR3FxNX3MeOe qGH9X948NHXeRVGuyV LiAVanI270OUKzFEzo IKo4ykGcRMTuClKkKI heecAIAUSNVEwTA5Rq TUVUQURBVEFfQkVHSU 0sYcI0RoX7UO8tTwxj BlK4QfIzoDV4SZKIXX ZEKHnXD2RcTUSVUECC GGHsUG7IJKbVNHFLPV RRX24HSFMVVXWHD9HS K2zWFUSmh4ZpBUYxn9 8owPpMLULYAHSZD91V HIJFVIVMO0OBHQDIWQ BGIMfTLVUYVa5VVFEH DQZRQS4JGPsTSqUlAV xbrUAxONjuRKZ5OGn1 SeJpkHIbf6XzwxSxxi KeJYUmf46fjIQhwG7k aQCgDdD2UgDfQshuV9 HqP4isCF5hV56pF2Pk kMPiiMVmYWN2ARR0zF 6eYA08fcujsIklzHbb hcU3KVRpiqhewELkKd BcfSBQTEFDRUhPTERF Uo1ALMOQWYPUVW9KKm JwZ1KZXK8VYd8BFLLO GBLSEZ3IVGwYSbZaW1 UJFE0ZTz6GYXYFFAYC MV0CUuLcBSSVF6UBIl RTD8glNVUBOETPFHBi EhVFBB2sCERNIX4XLU YATNZEX10TWMKWZKNH C8RRRY2ZKFQjLLryGC PpqMMBHFP7DJ6gALce eUQndqagUFHhO8OgJ4 RlbmRccGFyXHBhcmRc b2fbHWM8ISEitNKujH JaUlKaUqrbCWD2DHrm h6brZXU2OWBoiYGeoC AgDQpcZnMxNntcZXBp T2AmA2KygxI0VXp7 Major Classification (test NFMC/benign code = 9839) Diagnosis (test code = 34) i0cfcRYkISMgtZY6As QoRPClk0mfp7PvsUZy cGFyXGpleHBhbmRcbm 38fVK9bO82UK7aBTEn DtB9MUJwnwP2Txw9MY FqBLNzsNReR836k0ni q4bihdRbsNV4pNqhVU JkXHBsYWluXGZzMjBc cGFyIEEuIFBlbHZpYy H1HPXguX9jFjhbDKFr dGFiXHBhclxsaTcyMF feaN65WpSaIq3khQEa wPsaDY80FDKldHfwUO tsNM55rFOoWCUiuSHe XHBhcn0= Retained/Biomarker Testing t1bjnTYjODTviJE0Qg (test code = 9838) YfJXJxv5lkf6IftNZa cGFyXGpleHBhbmRcbm 28hNL3cT34KJ5xBNFe LgG8UBQejcZ1Jjg6RW NsGOWyzYIpU815u6hi y2dbpfGfjYB1zXkuYT JkXHBsYWluXGZzMjAg I0N6EDGtF1huYXR7 Informational Points (test u7drkEWrMBZfeACpDq code = 9836) NmRXXcRMRvy8mfDTRx bGFuZzEwMzNcZnRuYm pvsSZmXBNpDqYek0cj w471fQOxc3aeZOLiZa G2aAVnXDSsnWLrO138 YSErEGkhh3yft8HrAG TwlRZww9D4SJMPFKxs FRHNIVv7d9jmWvZuAc N8cKOmJKidG2vzmsZs vMQyMUOyOHo8uA33FK OipX4ugVYwEBmjtkYd LlJ9VGuzBPUbApD3KZ YawXUvSNOkF0jfIIUi XGdyZWVuMFxibHVlMC R6wNnlq9T6uATjwHQk dHtcZjBcZnMyMiBOb3 TwXTp7fQlqP5ItVRWz EdT9dXKkFLNkACkfRP DgUYLcmnP5kE85NIvg tjR2rXSod4Lli21xb6 53iX5lzELpPQZ6GCQm DSOakJSdDPTgROJ9UJ TclDCxP5hhGZWnOY2t cmdyMTgwMFxtYXJndD H0FWUscVXfP6RjIFZl OGdmEWKdmml8DoLhCq 9fsXIkdMqrVPskz7wm l6yakVKfQol9GZMuMc PmIjuyOUscu2Iqp7ub PMSpca0gHBE0dWKucU xxl0S0gFGgUMHtsFTi eoMwUXQxLkA6WLdwKU 0zvd82DGMpQUO3fg7b bGNccGdicmRyaGVhZF hzC3VgJMJta638KFBu G8UmDMEqs7G4rrAgOl VhZHZcbBV4jiZ4ANQz LAw2pFZbfkI6cnUjtT YbR6htwB1cZLOvYD2g mwcip6xhDGitMFpkAB RhlAD6rlZ9RUUdlUXp P6TieU3jHHFgEFkjXN Ptkpp4SfRdBo9djDRs eTcyMFxzYmtwYWdlXH BnbmNvbnRccGduZGVj XHBsYWluXHBsYWluXG YwXGZzMjRccWxccGxh pS1sHzCrIlOsCHgoUL 7mPSUnQ9nbaMOlWKQx YKEtJ9jdTsVrtB4wtN qdEHyourA0NOhgH09a MWZ1XUP2yxPtJJIfhs PlLNApFEObML6cmTZu RPVyIWPpTR2aCLJ4HI xvcGVkIGFuZCBwZXJm l8FkDD9dLFXmwKGeFS L5HUMpo2CuL5EsCID2 LTNhlB6tVMBubCVHLQ BNRCBBbmRlcnNvbiBQ UREgh9tlK3xgNY9oJH neSh6yULUrtalcKVCl aWNpbmUuIFRoZXNlIH Gkc3SbJAvukuOjas38 DPWuMC4qs8DjI5egfE HfsBp6GNOqHWXzBNQb k1PfRSLnzs73SHAjLt hosOibXGVxXl5iKf2e HIEqedNdASQ8HpDOYW 3hdcncvTBgzVksli3w XHBsYWluXGYyXGZzMj JcbGFuZzEwMzNcaGlj aFxmMlxkYmNoXGYyXG iuY3eiNnArZxJrAztx YXJ9 [facility] Glucose [id number] 13:08:27 Test Item Value Reference Range Interpretation Comments POC Glucose (test 103 mg/dL 70-99 H MD [place] dRN code = 60056-2) NotifiedCapi llary blood samples, e.g. o btained by fingerstick, may have inaccurate results in patients wit h decreased perip heral blood flow. Met hod description: Al l results are sanjeev sured using Electroch emistry test methodolog y. The glucose in the sample mixes with the reagents on the test str ip. The reaction produc es an electric curren t. The amount of curre nt produced is proportional to the glucose concent ration in the blood. PO Sample Type (test Capillary code = 9554) Lab Interpretation Abnormal (test code = 33883-0) MD [facility] Interpretation Antibody Screen Tkpyignm2810-76-11 03:07:57 Test Item Value Reference Range Interpretation Comments TMP Auto Neg At the present ABSC Interp time, patient (test code = plasma shows no ____CAMPBELL RODRIGUEZ MD 2451) evidence of RBC - 45107Tspqi verena by: alloantibodies. 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 (test code = Negative ABSC 890-4) DANIELA (test code = DANIELA) To be done at [facility]. MD De La RosaKqsfydnvOMSHp8567-60-55 17:58:05 Test Item Value Reference Range Interpretation Comments ABORh. (test code = O POS 882-1) DANIELA (test code = DANIELA) To be done at [facility]. MD De La RosaClot Expiration Dilb4976-50-04 17:58:02 Test Item Value Reference Range Interpretation Comments T & S Expiration (test code = 07/30/2020 5318) MD De La RosaFractionated Ypebxnqzx5243-88-86 17:29:15 Test Item Value Reference Range Interpretation Comments Bili Total (test 0.3 mg/dL See_Comment Indocyanine Green (ICG) code = 5096) may cause false ly elevated biliru bin results. Total and direct bilirubi n must not be measured from samples contain ing indocyanine gre en. False elevation of total bilirubin can be seen in patient s with IgG concentrati ons above 28 g/L. [Automated mess age] The system which ge nerated this result tra nsmitted reference range : <=1.2. The reference r rajani was not used to int erpret this result as normal/abnormal . Bili Direct (test <0.2 See_Comment Indocyanin e Green (ICG) code = 5094) may cause false ly elevated biliru bin results. Total and direct bilirubi n must not be measured from samples contain ing indocyanine gre en. [Automated mess age] The system which ge nerated this result tra nsmitted reference range : <=0.3 mg/dL. The refe rence range was not u sed to interpret this result as normal/abnor mal. Bili Indirect See Note 0-0.9 Unable to calc ulate (test code = Indirect Biliru bin 5095) result due to s ome parameters are outside reportable rang e DANIELA (test code = To be done at DANIELA) main campus. MD De La RosaGlomerular Filtration Iety1724-23-21 17:29:13 Test Item Value Reference Range Interpretation Comments eGFR-AA (test 104 See_Comment Normal eGFR: >= 60 code = 8062) mL/min/1.73 m2N ote: The eGFR is calcula verena using the CKD-EPI equ ation. The eGFR declin es with age. eGFR <60 mL/min/1.73 m2 is considered as "decreased". Th is equation should only be used for patien ts 18 and older. Betzaidain g to the National Kidney Foundation's Ki dney Disease Outcome Quality Initiative (KDO QI) classification and 2012 Kidney Disease Improving Global Outcomes (KDIGO) Clinical Practi ce Guideline, the stage of CKD should be categorized bas ed on estimated GFR. Stage Description GFR mL/min/1.73 m21 Normal or high GFR >=902 Mildly de creased GFR 60-893a Mildly to moderately decr eased GFR 45-593b Mod erately to severely dec reased GFR 30-444 Severely decreased GFR 15-295 Kidney f ailure <15 [Automa verena message] The sy stem which generated this result transmit verena reference range : >=60 mL/min/1.73 sq. m. The reference range was not used to interpr et this result as normal/abnormal . eGFR-BRANDIN (test 90 See_Comment Normal eGFR: >= 60 code = 8063) mL/min/1.73 m2N ote: The eGFR is calcula verena using the CKD-EPI equ ation. The eGFR declin es with age. eGFR <60 mL/min/1.73 m2 is considered as "decreased". Th is equation should only be used for patien ts 18 and older. Betzaidain g to the National Kidney Foundation's Ki dney Disease Outcome Quality Initiative (KDO QI) classification and 2012 Kidney Disease Improving Global Outcomes (KDIGO) Clinical Practi ce Guideline, the stage of CKD should be categorized bas ed on estimated GFR. Stage Description GFR mL/min/1.73 m21 Normal or high GFR >=902 Mildly de creased GFR 60-893a Mildly to moderately decr eased GFR 45-593b Mod erately to severely dec reased GFR 30-444 Severely decreased GFR 15-295 Kidney f ailure <15 [Automa verena message] The sy stem which generated this result transmit verena reference range : >=60 mL/min/1.73 sq. m. The reference range was not used to interpr et this result as normal/abnormal . DANIELA (test code To be done at = DANIELA) [facility]. MD De La RosaTotal [id number] 17:29:11 Test Item Value Reference Range Interpretation Comments Total Protein (test code 7.5 g/dL 6.4-8.3 = 7649) DANIELA (test code = DANIELA) To be done at [facility]. MD De La RosaElectrolyte Bngzw0856-18-53 17:29:10 Test Item Value Reference Range Interpretation Comments Sodium Lvl (test 140 See_Comment [Automated message] code = 7355) The system [employer] generated this result transmit verena reference range : 136 - 145 mEq/L. Th e reference range was not used to interpret this result as normal/abnormal . Potassium Lvl (test 4.6 See_Comment [Automa verena message] code = 6854) The system [employer] generated this result transmit verena reference range : 3.5 - 5.1 mEq/L. Th e reference range was not used to interpret this result as normal/abnormal . Chloride (test code 104 See_Comment [Automa verena message] = 3999) The system [employer] generated this result transmit verena reference range : 98 - 107 mEq/L. Th e reference range was not used to interpret this result as normal/abnormal . CO2 (test code = 29 See_Comment [Automated message] 5227) The system [employer] generated this result transmit verena reference range : 22 - 29 mEq/L. The reference range was not used to interpret this result as normal/abnormal . Anion Gap (test 7 See_Comment [Automated message] code = 9325) The system [employer] generated this result transmit verena reference range : 4 - 14 mEq/L. The reference range was not used to interpret this result as normal/abnormal . DANIELA (test code = To be done at DANIELA) [facility]. MD De La RosaCalcium [id number] 17:29:09 Test Item Value Reference Range Interpretation Comments Calcium Lvl (test code = 10.0 mg/dL 8.4-10.2 5258) DANIELA (test code = DANIELA) To be done at [facility]. MD De La RosaAlkaline Wcmvmmgcqbk8130-84-25 17:29:08 Test Item Value Reference Range Interpretation Comments Alk Phos (test code = 96 U/L 35-104 4768) DANIELA (test code = DANIELA) To be done at [facility]. MD De La RosaAlbumin Rgnio1007-93-23 17:29:07 Test Item Value Reference Range Interpretation Comments Albumin Lvl (test 4.1 See_Comment [Automate d message] code = 5891) The system [employer] generated this result transmitted ref erence range: 3.5 - 5. 2 gm/dL. The refe rence range was not u sed to interpret this result as normal/abnor mal. DANIELA (test code = To be done at [facility]) [facility]. MD De La RosaWfyoqvtrYPO9509-64-73 17:29:06 Test Item Value Reference Range Interpretation Comments ALT (test code = 24 U/L See_Comment [Automated message] 9333) The system [employer] generated this result transmitted ref erence range: <=33. Th e reference range was not used to int erpret this result as normal/abnormal . DANIELA (test code = To be done at [facility]) [facility]. MD De La RosaAspartate Lzpsgzpuaehgfpry5914-90-09 17:29:05 Test Item Value Reference Range Interpretation Comments AST (test code = 21 U/L See_Comment [Automated message] 5733) The system [employer] generated this result transmitted ref erence range: <=32. Th e reference range was not used to int erpret this result as normal/abnormal . DANIELA (test code = To be done at [facility]) [facility]. MD De La Rosa.Serum Vjdhcrembh2657-33-58 17:29:04 Test Item Value Reference Range Interpretation Comments Creatinine (test code = 0.81 mg/dL 0.51-0.95 5399) DANIELA (test code = DANIELA) To be done at [facility]. MD De La RosaHiwaucnbYET5624-11-84 17:29:02 Test Item Value Reference Range Interpretation Comments BUN (test code = 5055) 10 mg/dL 6-23 DANIELA (test code = DANEILA) To be done at [facility]. MD De La RosaGlucose Zdxgt7751-47-73 17:29:01 Test Item Value Reference Range Interpretation Comments Glucose Level 91 mg/dL 70-99 Effective 12/23, (test code = 5699) the gluco se reference intervals have been updated based o n [place] Diabet es Association guidelines (Sta ndards of Medical Care in Diabetes 2016. Diabetes Care 2 016; 39: S13-S22).Fa sting blood glucose:N ormal: 70 99 mg/dLImpaire d fasting glucose (increased risk for diabetes or pre-diabetes): 100 125 mg/dLDiabet es mellitus: >/=1 26 mg/dL Random bl ood glucose:Normal: 70 199 mg/dLNote: Random glucose >100 mg /dL is associated with increased risk for diabetes DANIELA (test code = To be done at [facility]) [facility]. MD De La RosaUrinalysis w/Microscopic if Fzjsqfxyo1068-92-24 17:21:35 Test Item Value Reference Range Interpretation Comments UA Color (test code Yellow Yellow = 7877) UA Appear (test Clear Clear code = 7868) UA Glucose (test NEG NEG mg/dL code = 7881) UA Bili (test code NEG NEG = 7871) UA Ketones (test NEG NEG mg/dL code = 7884) UA Spec Grav (test 1.017 1.002-1.035 code = 7894) UA Blood (test code NEG NEG = 7872) UA pH (test code = 6.0 4.5-8.0 7909) UA Protein (test NEG NEG mg/dL code = 7890) UA Urobilinogen NEG NEG (test code = 7903) UA Nitrite (test NEG NEG code = 7888) UA Leuk Est (test NEG NEG code = 7886) UA Comment (test See Comment No microsco pic exam code = 8512) performed, physiochemical findings are ne gative DANIELA (test code = To be done at [facility]) [facility]. MD De La RosaU [id number] 17:16:58 Test Item Value Reference Range Interpretation Comments U beta hCG Ql Negative Negative Very dilute ur ine (test code = specimens september c ause 4181) false negative results. Sugges t repeat in 48 ho urs with a first mo rning voided urine or request quantit ative serum beta HCG test. DANIELA (test code To be done at [facility] = DANIELA) campus. MD De La RosaEkrbbvwvEjlsxdwyfdnx9834-61-78 17:02:23 Test Item Value Reference Range Interpretation Comments Neutrophil % (test 58.6 % 42-66 code = 51702-0) Lymphocyte % (test 31.6 % 24-44 code = 737-7) Monocyte % (test code 7.2 % 2-7 H = 744-3) Eosinophil % (test 1.6 % 1-4 code = 713-8) Basophil % (test code 0.7 % 0-1 = 707-0) IGRE % (test code = 0.3 % 0-0.4 IGRE % c ount 23202-2) includes Metamyelocytes, Myelocytes, and Promyelocytes. Neutrophil Abs (test 4.33 K/uL 1.7-7.3 code = 753-4) Lymphocyte Abs (test 2.33 K/uL 1-4.8 code = 732-8) Monocyte Abs (test 0.53 K/uL 0.08-0.7 code = 743-5) Eosinophil Abs (test 0.12 K/uL 0.04-0.4 code = 712-0) Basophil Abs (test 0.05 K/uL 0-0.1 code = 705-4) IG Abs (test code = 0.02 K/uL 0-0.04 61800-9) DANIELA (test code = DANIELA) To be done at [facility]. Lab Interpretation Abnormal (test code = 69010-2) MD De La Rosa.[id number] 17:02:19 Test Item Value Reference Range Interpretation Comments WBC (test code = 7.4 K/uL - 6690-2) RBC (test code = 4.83 See_Comment [Automated message] 673-8) The system [employer] generated this result transmitted ref erence range: 4.00 - 5 .50 M/uL. The refer ence range was not u sed to interpret this result as normal/abnor mal. Hgb (test code = 13.5 See_Comment [Automated message] 449-7) The system [employer] generated this result transmitted ref erence range: 12.0 - 1 6.0 gm/dL. The refe rence range was not u sed to interpret this result as normal/abnor mal. Hct (test code = 42.5 % 37-47 4544-3) MPV (test code = 10.4 fL 4-10.4 787-2) MCH (test code = 28.0 pg 27-31 785-6) MCHC (test code = 31.8 See_Comment [Automate d message] 786-4) The system [employer] generated this result transmitted ref erence range: 31.0 - 3 6.0 gm/dL. The refe rence range was not u sed to interpret this result as normal/abnor mal. RDW-SD (test code 42.5 fL 35.1-46.3 = 20929-9) RDW-CV (test code 13.2 % 12-15.5 = 788-0) Platelet count 328 K/uL 140-440 (test code = 777-3) INRBC (test code = 0.0 % See_Comment The INRBC (instrument 5974) NRBC) value ref lects the enumeration of nucleated red b lood cells contained in a 200uL sampleof whole blood analyzed by the instrument. Thi s value maydiffer from the NRBC value repo rted in a manual differential,wh ich is based on a 100 cell differential. [Automated mess age] The system [employer] generated this result transmitted ref erence range: <=0.0. T he reference range was not used to int erpret this result as normal/abnormal . [facility] (test code = To be done at [facility]) main campus. MD De La RosaX-ray Chest 2 Uepgj9589-99-32 20:36:48Small left pleural effusion. Interface, Radiology Results In - 07/25/2020 2:39 PM CSTFULL RESULT:E xamination: XR CHEST 2 VW, 07/25/2020 2:34 PMClinical History: Shortness of breathIndication: Shortness of BreathComparison: NoneTechnique: Posteroanterior, lateral and dual-energy radiographs of the chest.Findings:Small left pleural effusion. No pneumothorax. The lungs are clear. Heart and mediastinalcontours are within normal limits.IMPRESSION:Small left pleural effusion.MD De La RosaUS Breast Complete Mvddrbony1808-22-21 16:55:12There is no sonographic evidence of malignancy. Follow-up mammogram in 1 year is recommended. BI-RADS Category 2:Benign Finding(s) These results and recommendations were personally discussed with the patient atthe time of the examination. Interface, Radiology Results In - 06/27/2020 10:55 AM CSTCLINICAL INDICATION:Patient is a 44 year old female and is seen for screening. FILMS COMPAREDThe present examination has been compared to prior imaging studies performed [facility] outside location on 06/12/2018 and 06/16/2018, and at [facility] on 06/27/2020. Images were obtained in multiple scanning planes. Real-time sonographic imaging of both breasts (including all 4 quadrants andretroareolar region) was performed. Real time sonographic imaging of bilateralaxilla was performed. There are benign scattered cysts in both breasts. No suspicious abnormality isseen in both breasts and axilla. IMPRESSION:There is no sonographic evidence of malignancy. Follow-up mammogram in 1 year isrecommended. BI-RADS Category 2:Benign Finding(s) These results and recommendations were personally discussed with the patient atthe time of the examination.[facility] Bilateral with Odkk4595-30-26 16:53:26No evidence of malignancy. The patient is scheduled for a same day ultrasound.Please, see the separate report. Follow-up mammogram in 1 year is recommended. BI-RADS Category 1:Negative Interface, Radiology Results In - 06/27/2020 10:53 AM CSTCLINICAL INDICATION:Patient is a 44 year old female and is seen for screening. MAMMO DIGITAL SCREENING BILATERAL W TOMODigital Mammogram evaluated with ComputerAided Detection (CAD). COMPARISON:The present examination has been compared to prior imaging studies performed [facility] outside location on 06/12/2018, 06/16/2018 and 06/29/2019. FINDINGS:The breasts are heterogeneously dense, which may obscure small masses. No dominant mass, distortion, or suspicious calcifications are identified. Tomosynthesis performed in CC and MLO projections. IMPRESSION:No evidenceof malignancy. The patient is scheduled for a same day ultrasound.Please, see the separate report. Follow-up mammogram in 1 year is recommended. BI-RADS Category 1:NegativeKaiser Foundation Hospitalrgical pathology rmgsjfp0056-81-21 17:30:52 Test Item Value Reference Range Interpretation Comments Case number (test code = [id number]) Surgical pathology See link below for report (test code = PDF Lab Report 2250) Result status (test code This is Final Report = [id number]) for [id number] Geoff CastilloUukuhvjppRrkvsw0329-21-11 12:56:02Ivett Draper CRNA 05/13/2020 12:58 PMAirwayPerformed by: Ivett Draper CRNAAuthorized by: Jeet Funes MD Location: ORUrgency: ElectiveDifficult Airway: No Anesthesiologist: Jeet Funes MDResident/DIRECTOR OF FOOD AND BEVERAGE SERVICES/AA: Ivett Draper CRNAPerformed by: resident/DIRECTOR OF FOOD AND BEVERAGE SERVICES/AAPreoxygenated with 100% O2: Yes Mask Ventilation: Not attemptedFinal Airway Type: Supraglottic airwayFinal LMA: I-GelLMA Size: 4Number of Attempts at Approach: 1Hlos [facility] medical centerana m CastilloistECG Pre/Post [id number] 17:57:46 Test Item Value Reference Range Interpretation Comments Ventricular rate (test 67 code = 253) Atrial rate (test code 67 = 255) NC interval (test code 194 = 266) QRSD interval (test 82 code = 260) QT interval (test code 400 = 264) QTC interval (test code 422 = 265) P axis 1 (test code = 50 267) QRS axis 1 (test code = -9 268) T wave axis (test code 41 = 270) EKG impression (test Normal sinus code = 273) rhythm-Anterolateral infarct , age undetermined-Abnormal ECG-In automated comparison with ECG of 23-OCT-2012 07:19,-NC interval has increased-Vent. rate has decreased BY 35 BPM-Anterior infarct is now present-Anterolateral infarct is now present-Nonspecific T wave abnormality has replaced inverted T waves in Inferior leads- Geoff Godfrey COVID-19 (SLADE-CoV-2) PCR Nrughfueikyf9026-17-64 20:46:00 Test Item Value Reference Interpretation Comments Range COVID19 SARS New Patient Indication (test code = 78690) COVID19 SARS Result Not Detected Not Detected (test code = 46881-7) COVID19 SARS SARS-CoV-2 NOT Detected. Interpretation (test Reference Range: Not code = 56646) Detected Methodology: The Coker RealTime SARS-CoV-2 assay is a qualitative real-time reverse meter installer polymerase chain reaction (nitroglycerin supervisor-PCR) test to detect RNA from SARS-CoV-2 in nasal, nasopharyngeal and oropharyngeal swabs from patients with signs and symptoms of infection who are suspected of COVID-19 by their health care provider. The Coker RealTime SARS-CoV-2 performed on the [employer] Pace000 System is a dual target assay with primers and probes for the RdRp and N genes. Results must be interpreted within the context of all relevant clinical and laboratory findings, and epidemiological risk factors. Positive results are indicative of the presence of SARS-CoV-2 RNA; clinical correlation with patient history and other diagnostic information is necessary to determine patient infection status. Positive results do not rule out bacterial infection or co-infection with other viruses. Negative results do not preclude SARS-CoV-2 infection and should not be used as the sole basis for patient management decisions. The Coker RealTime SARS-CoV-2 assay is for in vitro diagnostic use under FDA Emergency Use Authorization only. Testing is limited to laboratories certified under the Clinical Laboratory Improvement Amendments of 1988 (CLIA), 42U.S.C. 263a, to perform high complexity tests. The Test was performed by the CLIA-certified, high-complexity Molecular Diagnostics Laboratory (MDL) at [facility] under the Food and Drug Administration (FDA) s Emergency Use Authorization. Factsheet for patients: https://www.[facility].org/ AbbottFactSheetPatientsFact sheet for healthcare providers: https://www.[facility].org/ AbbottFactSheetHCP Test performed by:[facility] Molecular Diagnostic [id number] [place] [address] [facility] HospitalANEMIA QGPQT7307-04-99 14:26:0064Memsrimi HermannANEMIA STUDY 2018-12-02 14:26:00 Test Item Value Reference Range Interpretation Comments DRE (test code = TIBC) 379 1 250-450 [facility] HermannANEMIA RALCL9044-25-13 14:26:0017Memsrimi HermannANEMIA STUDY 2018-12-02 14:26:0029[facility] HermannCHEM BUDVH1586-98-68 14:26:83517Xtfxyjoy HermannCHEM YSYMH6727-57-35 14:26:0016[facility] HermannCHEM JLXAN6066-34-70 14:26:000.83[facility] HermannCHEM ANADK6739-68-16 14:26:0088[facility] HermannCHEM GHYUX0035-23-90 14:26:62655Kllxppwp HermannCHEM LAFUL2089-18-98 14:26:99412 [facility] HermannCHEM ZGMGS0920-35-59 14:26:004.2[facility] HermannCHEM PANEL 2018-12-02 14:26:01663Rewurkym HermannCHEM SEYSC9089-51-83 14:26:0023[facility] HermannCHEM HHIYD1221-05-23 14:26:009.1[facility] HermannCHEM HVDUE5412-93-06 14:26:006.7[facility] HermannCHEM YLAHC3224-93-74 14:26:003.8[facility] HermannCHEM YQOJK9320-92-47 14:26:002.9[facility] HermannCHEM LUYRD4236-66-88 14:26:001.3 [facility] HermannCHEM WYRPC2526-47-42 14:26:000.4[facility] HermannCHEM PANEL 2018-12-02 14:26:24607Yobpoojr HermannCHEM LFMER2923-54-88 14:26:0015[facility] HermannCHEM EDBRG8221-70-50 14:26:0019[facility] RwutvvxWDUOCXLQTC1916-90-67 14:26:008.1[facility] PzzfwzuMFUZPHUCDR2927-74-15 14:26:004.58[facility] MXUTQFCOBW6002-76-06 14:26:0013.9[facility] MjjoaxeSCEVKUFQTP4198-44-68 14:26:00 41.0[facility] CoboyzlFVLFSMFONO2688-13-39 14:26:0089.5[facility] HermannHEMATOLOGY 2018-12-02 14:26:00 Test Item Value Reference Range Interpretation Comments MCH (test code = MCH) 30.3 pg 27.0-33.0 [facility] AxfzecvOBSUSSELQM7148-95-17 14:26:0033.9[facility] HermannHEMATOLOGY 2018-12-02 14:26:0013.0[facility] ZdrbblmENFKSYTUXA0975-35-00 14:26:06645Dqybszoo XmbapaiJSYGOIJEYP0052-23-43 14:26:0011.0[facility] EswrvehMOHXEBOJWJ0745-92-67 14:26:870587Tnlxzrsn TabaczdYLUOUPOBWH8791-09-04 14:26:652632Paoajogk [facility] MMHZJEIOAS2412-19-37 14:26:32200Monjrrmc VhxpqeoAJUSFGEGTG4537-25-20 14:26:27670 [facility] JylhclrGMCAUTTOVO0095-25-52 14:26:0057[facility] HermannHEMATOLOGY 2018-12-02 14:26:0061.6[facility] HqlzxjiPYESXXBRSR1064-86-14 14:26:0028.9[facility]orial TxmoqovQYTAAOESRU8117-12-30 14:26:007.1[facility] DklagkpZZTZKBVJTT1898-56-17 14:26:001.7[facility] ArduonpWRACKZUVNX6900-64-84 14:26:000.7[facility] PTUUOQYWXX3066-44-19 14:26:009[facility]- US PELVIS TODYAVNT6958-98-22 10:24:00 Patient Name: KATHRINE AGOSTO Unit No: [id number] EXAMS: CPT CODE: [id number] US PELVIS COMPLETE 16148 Pelvic US performed June 30, 2018. COMPARISON: May 20, 2016. CLINICAL HISTORY: Left ovarian cyst seen on outside CT. No images or report available. DISCUSSION: Real-time hutchinson scale sonography performed of the pelvis via the transabdominal and transvaginal approach. The uterus measures 10.2 x 4.7 x 5.6 cm and contains no focal myometrial abnormalities. The endometrium is homogenous and measures 8 mm in thickness. The ovaries are sonographically normal in appearance with the right measuring 30 x 20 x 13 mm and the left measuring 31 x 15 x 14 mm. Subcentimeter follicles are seen bilaterally. Normal flow seen in both ovaries. No significant free fluid in seen in the cul de sac. IMPRESSION: 1. Normal pelvic ultrasound. at 1024 Reported and signed by: Elizabeth Randall MD CC: Technologist: Alissa Koroma RDMS, T Probe: Trnscrbd D/ (1024) t.SDR.NMG Orig Print D/T: S: 06/30/2018 (1027) [facility] NAME: KATHRINE AGOSTO JERO Radiology Department PHYS: Nita Enriquez XOCHITL [address] : 1975 AGE: 42 SEX: F [place] [address] LOC: JohnRAD PHONE #: [phone] EXAM DATE: 06/30/2018 STATUS: REG CLI FAX #: [phone] RAD NO: [id number] Page 1 Signed Report Patient Name: KATHRINE AGOSTO Unit No: [id number] EXAMS: CPT CODE: [id number] US PELVIS COMPLETE 25382 <Continued> [facility] NAME: KATHRINE AGOSTO JERO Radiology Department PHYS: NELLIEArthurNita Prescott [facility] [address] : 1975 AGE: 42 SEX: F [place] [phone] LOC: JohnRAD PHONE #: [phone] EXAM DATE: 06/30/2018 STATUS:REG CLI FAX #: [phone] RAD NO: [id number] Page 2 Signed Report- US TRANSVAGINAL [id number] 10:24:00 Patient Name: KATHRINE AGOSTO Unit No: [id number] EXAMS: CPT CODE: [id number] US TRANSVAGINAL W/PELVIS 25102 Pelvic US performed June 30, 2018. COMPARISON: May 20, 2016. CLINICAL HISTORY: Left ovarian cyst seen on outside CT. No images or report available. DISCUSSION: Real-time hutchinson scale sonography performed of the pelvis via the transabdominal and transvaginal approach. The uterus measures 10.2 x 4.7 x 5.6 cm and contains no focal myometrial abnormalities. The endometrium is homogenous and measures 8 mm in thickness. The ovaries are sonographically normal in appearance with the right measuring 30 x 20 x 13 mm and the left measuring 31 x 15 x 14 mm. Subcentimeter follicles are seen bilaterally. Normal flow seen in both ovaries. No significant free fluid in seen in the cul de sac. IMPRESSION: 1. Normal pelvic ultrasound. at 1024 Reported and signed by: Elizabeth Randall MD CC: Technologist: Alissa Koroma RDMS, RVT Probe: [id number] Trnscrbd D/ (1024) t.MORELIAG Orig Print D/T: S: 06/30/2018 (1027) [facility] NAME: KATHRINE AGOSTO Radiology Department PHYS: Nita Enriquez [address] : 1975 AGE: 42 SEX: F [place] [address] LOC: JohnRAD PHONE #: [phone] EXAM DATE: 06/30/2018 STATUS: REG CLI FAX #: [phone] RAD NO: [id number] Page 1 Signed Report Patient Name: KATHRINE AGOSTO Unit No: [id number] EXAMS: CPT CODE: [id number] US TRANSVAGINAL W/PELVIS 23187 <Continued> [facility] NAME: KATHRINE AGOSTO JERO Radiology Department PHYS: Nita Enriquez HOME SPECIALIST [address] : 1975 AGE: 42 SEX: F [place] [phone] LOC: JohnRAD PHONE #: [phone] EXAM DATE: 06/30/2018 STATUS:REG CLI FAX #: [phone] RAD NO: [id number] Page 2 Signed ReportBLOOD [id number] 06:00:00 Test Item Value Reference Range Interpretation Comments CULTURE (BEAKER) (test No growth in 5 days code = 1095) CT, [id number] 00:08:00Reason for exam:->abd painIs the patient ?->NoWhat [...] abscess formation. Bladder: No significant findings. Major vas cular structures: No significant findings. Reproductive organs: There is a tampon in the vagina. Other: Trace fluid in the left lower quadrant is probably reactive. No free air or adenopathy Skeleton: No acute bony abnormality. IMPRESSION: Acute, uncomplicated sigmoid diverticulitis. Postsurgical changes, as described. Signed: Brenda Cast MDReport Verified Date/Time: 09/07/2017 00:08:11 Reading Location: [address] Reading Room PT/APTT 2017-09-06 22:35:00 Test Item Value Reference Range Interpretation Comments PROTIME (BEAKER) (test code = 13.4 seconds 11.7-14.7 759) INR (BEAKER) (test code = 370) 1.0 <=5.9 PARTIAL THROMBOPLASTIN TIME 31.4 seconds 22.5-36.0 (BEAKER) (test code = 760) RECOMMENDED COUMADIN/WARFARIN INR THERAPY RANGESSTANDARD DOSE: 2.0 - 3.0 Includes: PROPHYLAXIS forvenous thrombosis, systemic embolization; TREATMENT for venous thrombosis and/or pulmonary embolus.HIGH RISK: Target INR is 2.5-3.5 for patients with mechanical heart valves.BASIC METABOLIC [id number] 22:33:00 Test Item Value Reference Range Interpretation Comments SODIUM (BEAKER) 134 meq/L 136-145 L (test code = 381) POTASSIUM (BEAKER) 4.3 meq/L 3.5-5.1 Specimen moderately (test code = 379) hemolyzed CHLORIDE (BEAKER) 104 meq/L 98-107 (test code = 382) CO2 (BEAKER) (test 21 meq/L 22-29 L code = 355) BLOOD UREA NITROGEN 14 mg/dL 7-21 (BEAKER) (test code = 354) CREATININE (BEAKER) 0.90 mg/dL 0.57-1.25 Specimen moderately (test code = 358) hemolyzed GLUCOSE RANDOM 88 mg/dL 70-105 (BEAKER) (test code = 652) CALCIUM (BEAKER) 9.4 mg/dL 8.4-10.2 (test code = 697) EGFR (BEAKER) (test 70 mL/min/1.73 ESTIMA VERENA GFR IS code = 1092) sq m NOT ACCURATE CREATININE CLEARANCE IN PREDICTING GLOMERULAR FILTRATION RATE . ESTIMATED GFR I S NOT APPLICABLE FOR DIALYSIS PATIEN TS. CBC W/PLT COUNT & AUTO [id number] 22:27:00 Test Item Value Reference Range Interpretation Comments WHITE BLOOD CELL COUNT (BEAKER) 16.3 K/ L 3.5-10.5 H (test code = 775) RED BLOOD CELL COUNT (BEAKER) 5.14 M/ L 3.93-5.22 (test code = 761) HEMOGLOBIN (BEAKER) (test code = 15.3 GM/DL 11.2-15.7 410) HEMATOCRIT (BEAKER) (test code = 46.5 % 34.1-44.9 H 411) MEAN CORPUSCULAR VOLUME (BEAKER) 90.5 fL 79.4-94.8 (test code = 753) MEAN CORPUSCULAR HEMOGLOBIN 29.8 pg 25.6-32.2 (BEAKER) (test code = 751) MEAN CORPUSCULAR HEMOGLOBIN CONC 32.9 GM/DL 32.2-35.5 (BEAKER) (test code = 752) RED CELL DISTRIBUTION WIDTH 12.4 % 11.7-14.4 (BEAKER) (test code = 412) PLATELET COUNT (BEAKER) (test 291 K/CU MM 150-450 code = 756) MEAN PLATELET VOLUME (BEAKER) 10.3 fL 9.4-12.3 (test code = 754) NUCLEATED RED BLOOD CELLS 0 /100 WBC 0-0 (BEAKER) (test code = 413) NEUTROPHILS RELATIVE PERCENT 72 % (BEAKER) (test code = 429) LYMPHOCYTES RELATIVE PERCENT 18 % (BEAKER) (test code = 430) MONOCYTES RELATIVE PERCENT 9 % (BEAKER) (test code = 431) EOSINOPHILS RELATIVE PERCENT 0 % (BEAKER) (test code = 432) BASOPHILS RELATIVE PERCENT 0 % (BEAKER) (test code = 437) NEUTROPHILS ABSOLUTE COUNT 11.68 K/ L 1.56-6.13 H (BEAKER) (test code = 670) LYMPHOCYTES ABSOLUTE COUNT 2.99 K/ L 1.18-3.74 (BEAKER) (test code = 414) MONOCYTES ABSOLUTE COUNT (BEAKER) 1.43 K/ L 0.24-0.36 H (test code = 415) EOSINOPHILS ABSOLUTE COUNT 0.06 K/ L 0.04-0.36 (BEAKER) (test code = 416) BASOPHILS ABSOLUTE COUNT (BEAKER) 0.05 K/ L 0.01-0.08 (test code = 417) IMMATURE GRANULOCYTES-RELATIVE 1 % 0-1 PERCENT (BEAKER) (test code = 2801) URINALYSIS W/ REFLEX URINE [id number] 22:23:00 Test Item Value Reference Range Interpretation Comments COLOR (BEAKER) (test code = 470) Yellow CLARITY (BEAKER) (test code = 469) Clear SPECIFIC GRAVITY UA (BEAKER) (test 1.021 1.001-1.035 code = 468) PH UA (BEAKER) (test code = 467) 6.0 5.0-8.0 PROTEIN UA (BEAKER) (test code = 10 mg/dL Negative A 464) GLUCOSE UA (BEAKER) (test code = Negative Negative 365) KETONES UA (BEAKER) (test code = Negative Negative 371) BILIRUBIN UA (BEAKER) (test code = Negative Negative 462) BLOOD UA (BEAKER) (test code = 461) Negative Negative NITRITE UA (BEAKER) (test code = Negative Negative 465) LEUKOCYTE ESTERASE UA (BEAKER) Negative Negative (test code = 466) UROBILINOGEN UA (BEAKER) (test code 0.2 mg/dL 0.2-1.0 = 463) RBC UA (BEAKER) (test code = 519) 0 /HPF WBC UA (BEAKER) (test code = 520) 0 /HPF BACTERIA (BEAKER) (test code = 517) Rare MUCUS (BEAKER) (test code = 1574) Rare SQUAMOUS EPITHELIAL (BEAKER) (test 1 /HPF code = 516) SOURCE(BEAKER) (test code = 2795) SCREEN, [id number] 22:22:00 Test Item Value Reference Range Interpretation Comments TEST URINE (BEAKER) (test Negative code = 583) CT, [id number] 00:19:00Reason for exam:->ABDOMINAL PAINIs the patient ?->UnknownWhat is the patient's sedation requirement?->No Sedation FINAL REPORT CT scan of the abdomen and pelvis: CLINICAL HISTORY: Abdominal pain. History of diverticulitis. Comparison exam: None TECHNIQUE: CT scan of the abdomen and pelvis with intravenous contrast. This exam was performed according to our departmental dose optimization program, which includes automated exposure control, adjustment [...] MDReport Verified Date/Time: 03/08/2017 00:19:13 Reading Location: [facility] B1 C013X Ortho Consult Reading Room URINALYSIS W/ [id number] 22:58:00 Test Item Value Reference Range Interpretation Comments COLOR (BEAKER) (test code = Yellow 470) CLARITY (BEAKER) (test code = Clear 469) SPECIFIC GRAVITY UA (BEAKER) 1.013 1.001-1.035 (test code = 468) PH UA (BEAKER) (test code = 5.5 5.0-8.0 467) PROTEIN UA (BEAKER) (test code Negative Negative = 464) GLUCOSE UA (BEAKER) (test code Negative Negative = 365) KETONES UA (BEAKER) (test code Negative Negative = 371) BILIRUBIN UA (BEAKER) (test Negative Negative code = 462) BLOOD UA (BEAKER) (test code = Negative Negative 461) NITRITE UA (BEAKER) (test code Negative Negative = 465) LEUKOCYTE ESTERASE UA (BEAKER) Negative Negative (test code = 466) UROBILINOGEN UA (BEAKER) (test 0.2 mg/dL 0.2-1.0 code = 463) RBC UA (BEAKER) (test code = 1 /HPF 519) WBC UA (BEAKER) (test code = 2 /HPF 520) BACTERIA (BEAKER) (test code = Moderate 517) MUCUS (BEAKER) (test code = Rare 1574) SQUAMOUS EPITHELIAL (BEAKER) 1 /HPF (test code = 516) SOURCE(BEAKER) (test code = Urine, Voided 4433) SCREEN, [id number] 22:52:00 Test Item Value Reference Range Interpretation Comments TEST URINE (BEAKER) (test Negative code = 583) BASIC METABOLIC [id number] 22:20:00 Test Item Value Reference Range Interpretation Comments SODIUM (BEAKER) 139 meq/L 136-145 (test code = 381) POTASSIUM (BEAKER) 4.0 meq/L 3.5-5.1 Specimen slightly (test code = 379) hemolyzed CHLORIDE (BEAKER) 109 meq/L 98-107 H (test code = 382) CO2 (BEAKER) (test 21 meq/L 22-29 L code = 355) BLOOD UREA NITROGEN 11 mg/dL 7-21 (BEAKER) (test code = 354) CREATININE (BEAKER) 1.11 mg/dL 0.57-1.25 Specimen slightly (test code = 358) hemolyzed GLUCOSE RANDOM 90 mg/dL 70-105 (BEAKER) (test code = 652) CALCIUM (BEAKER) 9.5 mg/dL 8.4-10.2 (test code = 697) EGFR (BEAKER) (test 55 mL/min/1.73 ESTIMA VERENA GFR IS code = 1092) sq m NOT ACCURATE CREATININE CLEARANCE IN PREDICTING GLOMERULAR FILTRATION RATE . ESTIMATED GFR I S NOT APPLICABLE FOR DIALYSIS PATIEN TS. CBC W/PLT COUNT & AUTO [id number] 21:52:00 Test Item Value Reference Range Interpretation Comments WHITE BLOOD CELL COUNT (BEAKER) 10.1 K/ L 3.5-10.5 (test code = 775) RED BLOOD CELL COUNT (BEAKER) 4.78 M/ L 3.93-5.22 (test code = 761) HEMOGLOBIN (BEAKER) (test code = 13.6 GM/DL 11.2-15.7 410) HEMATOCRIT (BEAKER) (test code = 42.1 % 34.1-44.9 411) MEAN CORPUSCULAR VOLUME (BEAKER) 88.1 fL 79.4-94.8 (test code = 753) MEAN CORPUSCULAR HEMOGLOBIN 28.5 pg 25.6-32.2 (BEAKER) (test code = 751) MEAN CORPUSCULAR HEMOGLOBIN CONC 32.3 GM/DL 32.2-35.5 (BEAKER) (test code = 752) RED CELL DISTRIBUTION WIDTH 18.6 % 11.7-14.4 H (BEAKER) (test code = 412) PLATELET COUNT (BEAKER) (test 314 K/CU MM 150-450 code = 756) MEAN PLATELET VOLUME (BEAKER) 10.5 fL 9.4-12.3 (test code = 754) NUCLEATED RED BLOOD CELLS 0 /100 WBC 0-0 (BEAKER) (test code = 413) NEUTROPHILS RELATIVE PERCENT 60 % (BEAKER) (test code = 429) LYMPHOCYTES RELATIVE PERCENT 30 % (BEAKER) (test code = 430) MONOCYTES RELATIVE PERCENT 8 % (BEAKER) (test code = 431) EOSINOPHILS RELATIVE PERCENT 2 % (BEAKER) (test code = 432) BASOPHILS RELATIVE PERCENT 0 % (BEAKER) (test code = 437) NEUTROPHILS ABSOLUTE COUNT 6.05 K/ L 1.56-6.13 (BEAKER) (test code = 670) LYMPHOCYTES ABSOLUTE COUNT 2.97 K/ L 1.18-3.74 (BEAKER) (test code = 414) MONOCYTES ABSOLUTE COUNT (BEAKER) 0.76 K/ L 0.24-0.36 H (test code = 415) EOSINOPHILS ABSOLUTE COUNT 0.16 K/ L 0.04-0.36 (BEAKER) (test code = 416) BASOPHILS ABSOLUTE COUNT (BEAKER) 0.04 K/ L 0.01-0.08 (test code = 417) IMMATURE GRANULOCYTES-RELATIVE 1 % 0-1 PERCENT (BEAKER) (test code = 6948)
[2020-09-27 09:27] LABS: Urine Blood Negative (Negative); Urine Glucose Negative (Negative); Urine Protein Negative (Negative); Urine Specific Gravity 1.015 (1.005-1.030)
[2020-09-27 09:39] LABS: Absolute Lymphocytes (CBC) 2.1 K/uL (0.7-4.9); Basophils % 0.7 % (0-1.3); Hematocrit 39.7 % (36.0-45.0); MPV 8.7 fL (7.6-11.3); RBC Red Blood Cell Count 4.68 M/uL (3.86-4.86)
[2020-09-27 09:41] LABS: Urine Bacteria <20 /HPF (<20); Urine RBC NONE SEEN /HPF (NONE SEEN)
[2020-09-27 09:51] LABS: ALT/SGPT 29 U/L (12-78); Albumin 3.4 g/dL (3.4-5.0); Alkaline Phosphatase 100 U/L (45-117); BUN Blood Urea Nitrogen 11 mg/dL (7-18); Bicarbonate 27 mmol/L (21-32); Bilirubin Direct < 0.1 mg/dL (0-0.2); Bilirubin Total 0.4 mg/dL (0.2-1.0); Glucose Level 101 mg/dL (74-106); Lipase 90 U/L (73-393); Protein, Total 7.6 g/dL (6.4-8.2); Sodium Level 140 mmol/L (136-145)
[2020-09-27 09:54] LABS: AST/SGOT 20 U/L (15-37); Potassium 4.2 mmol/L (3.5-5.1)
--- NOTE | 2020-09-27 10:33 | RAD REPORT ---
EXAM DESCRIPTION: CT - Stone Protocol - 09/27/2020 9:40 am CLINICAL HISTORY: left flank pain COMPARISON: Abdomen Pelvis W Contrast dated 02/04/2016 TECHNIQUE: Axial 3 mm thick images were obtained without oral or IV contrast. The [id number] span s the entirety of the system including uppermost abdomen and lung bases. All CT scans are performed using dose optimization technique as appropriate and may include automated exposure control or mA/KV adjustment according to patient size. FINDINGS: Lung base atelectasis changes are present. No pneumothorax or pleural effusion at either l margoth base. No hydronephrosis is present and no obstructing ureteral calculi. Patient has numerous nonobstructing bilateral calyx/ pyramid calculi. No bladder calculus. No suspicious renal masses. Isodense masses a nd pyelonephritis are not excluded on a stone protocol CT scan. No significant adrenal finding. No ur inary bladder suspicious finding. Uterus and ovaries show no suspicious findings. Imaged portions of the liver, spleen and pancreas show no suspicious findings on non-contrast imaging . Cholecystectomy clips are present. No biliary tree dilatation. No dilated bowel loops or focal bowel wall thickening. Partial resection of the right-side colon note d. Anastomotic site has no suspicious finding. Patient does have some sigmoid and descending colon di verticulosis. No measurable diverticulitis at this time. Mucosal level inflammatory changes can be oc cult on CT imaging. No hernia, mass or bulky lymphadenopathy noted. No free air, free fluid or inflammatory stranding. No significant bony abnormality. IMPRESSION: No hydronephrosis, obstructing calculus or acute finding identified. Patient has nume kristin bilateral nonobstructing calyx/pyramid calculi. Isodense masses and pyelonephritis are not excluded on stone protocol technique. 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 Patient has left-sided diverticulosis without identifiable diverticulitis . Mild mucosal level inflammatory changes can be occult on CT imaging.
--- NOTE | 2020-09-27 10:42 | EDPHYS ---
Physician Documentation [facility] Name: Luz Maria Mendoza Age: 44 yrs Sex: Female : 1975 Arrival Date: 09/27/2020 Time: 07:47 Bed 15 Private MD: ED Physician Hany Sierra HPI: 09/27 09:06 This 44 yrs old Female presents to ER via Ambulatory with complaints of Flank rn Pain. 09:06 The patient complains of pain in the left mid back. The pain does not radiate. Onset: rn The symptoms/episode began/occurred yesterday. Modifying factors: The symptoms are alleviated by nothing. the symptoms are aggravated by movement, palpation/percussion. Associated signs and symptoms: Pertinent negatives: fever, urinary frequency, hematuria, nausea, pain radiating to the lower extremities, vomiting. Severity of pain: At its worst the pain was moderate in the emergency department the pain is unchanged. The patient has experienced similar episodes in the past. The patient has not recently seen a physician. Reports left flank pain, nontraumatic, began yesterday, feels different compared to her previous kidney stones and diverticulitis. Denies hematuria. No fever. No sob/cough/chest pain. Not improving. Declines pain medication.. 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 - Hysterectomy kg Historical: - Allergies: 08:12 Codeine; aa5 08:12 Contraceptives; aa5 08:12 Erythromycin; aa5 08:12 Iodinated Contrast Media - IV Dye; aa5 08:12 Phenergan (IV); aa5 08:12 Topamax; aa5 08:12 Ultram (Itching); aa5 08:12 Vicodin; aa5 - PMHx: 08:10 Anxiety; caverness angioma; Diverticulitis; Endometrosis; GERD; hiatal hernia; HPV; aa5 ibs; IRON DEFICIENCY ANEMIA; Kidney stones; Migraines; PE; pseudotumors; sciatica; SVT; Arthritis; - PSHx: 08:10 cardiac ablation; IVC filter placed and removed; Cholecystectomy; c section; gamma aa5 knife for carvenous angioma bleed; Appendectomy; hemicolectomy; Steven fallopian tubes and ovaries removed; - Immunization history:: Adult Immunizations unknown. - Social history:: Smoking status: Patient denies any tobacco usage or history of. - Family history:: not pertinent. - Hospitalizations: : No recent hospitalization is reported. ROS: 09:06 Constitutional: Negative for fever, chills, and weight loss, Eyes: Negative for injury, rn pain, redness, and discharge, Cardiovascular: Negative for chest pain, palpitations, and edema, Respiratory: Negative for shortness of breath, cough, wheezing, and pleuritic chest pain, Abdomen/GI: Negative for abdominal pain, nausea, vomiting, diarrhea, and constipation, Back: + left flank pain : Negative for injury, bleeding, discharge, and swelling, MS/Extremity: Negative for injury and deformity, Skin: Negative for injury, rash, and discoloration, Neuro: Negative for headache, weakness, numbness, tingling, and seizure. Exam: 09:06 Constitutional: This is a well developed, well nourished patient who is awake, alert, rn and in no acute distress. Head/Face: Normocephalic, atraumatic. Cardiovascular: Regular rate and rhythm. No pulse deficits. Respiratory: No increased work of breathing, no retractions or nasal flaring. Abdomen/GI: soft, mild LUQ tenderness, no rebound, no masses Back: No spinal tenderness. No costovertebral tenderness. Skin: Warm, dry MS/ Extremity: Pulses equal, no cyanosis. Neurovascular intact. Full, normal range of motion. Equal circumference. Neuro: Awake and alert, GCS 15 Vital Signs: 08:10 BP 123 / 81; Pulse 88; Resp 18 S; Temp 98.3(O); Pulse Ox 98% on R/A; Weight 92.08 kg aa5 (R); Height 5 ft. 3 in. (160.02 cm) (R); 10:30 BP 127 / 84; Pulse 76; Resp 18; Pulse Ox 98% on R/A; kg 08:10 Body Mass Index 35.96 (92.08 kg, 160.02 cm) aa5 MDM: 08:46 Patient medically screened. rn 10:39 Differential diagnosis: nephrolithiasis, pyelonephritis, UTI, diverticulitis. Data rn reviewed: vital signs, nurses notes, lab test result(s), radiologic studies, CT scan, and as a result, I will discharge patient. Counseling: I had a detailed discussion with the patient and/or guardian regarding: the historical points, exam findings, and any diagnostic results supporting the discharge/admit diagnosis, lab results, radiology results, the need for outpatient follow up, to return to the emergency department if symptoms worsen or persist or if there are any questions or concerns that arise at home. Response to treatment: the patient's symptoms have mildly improved after treatment, and as a result, I will discharge patient. Special discussion: I discussed with the patient/guardian in detail that at this point there is no indication for admission to the hospital. It is understood, however, that if the symptoms persist or worsen the patient needs to return immediately for re-evaluation. ED course: NO acute findings, + chronic renal calcification, neg UA and micro, no obstruction, no signs of diverticulitis. Will dc home with PCP f/u and return precautions. . 09/27 09:04 Order name: CBC with Diff; Complete Time: 09:58 rn 09/27 09:04 Order name: Hepatic Function; Complete Time: 09:58 rn 09/27 09:04 Order name: Lipase; Complete Time: 09:58 rn 09/27 09:04 Order name: Urine Culture rn 09/27 09:04 Order name: Urine Microscopic Only; Complete Time: 09:58 rn 09/27 09:04 Order name: IV Saline Lock; Complete Time: 09:28 rn 09/27 09:04 Order name: Labs collected and sent; Complete Time: 09:28 rn 09/27 09:04 Order name: CT Stone Protocol; Complete Time: 10:33 rn 09/27 09:04 Order name: Urine Dipstick-Ancillary (obtain specimen); Complete Time: 09:28 rn 09/27 09:04 Order name: Basic Metabolic Panel; Complete Time: 09:58 EDMS 09/27 09:27 Order name: Urine Dipstick-Ancillary; Complete Time: 09:58 EDMS Administered Medications: No medications were administered Disposition: 09/27/20 10:41 Discharged to Home. Impression: Left flank pain. - Condition is Stable. - Discharge Instructions: Flank Pain, Adult. - Medication Reconciliation Form, Thank You Letter, Antibiotic Education, Prescription Opioid Use, Work release form form. - Follow up: Private Physician; When: As needed; Reason: Recheck today's complaints, Re-evaluation by your physician. - Problem is new. - Symptoms have improved. Signatures: Dispatcher [employer] [facility] Hany Sierra MD MD rn Calderon, Audri RN RN aa5 Diana Arango kg Corrections: (The following items were deleted from the chart) 09:12 09:04 BASIC METABOLIC PANEL+C.LAB.BRZ ordered. [facility] 11:20 10:41 09/27/2020 10:41 Discharged to Home. Impression: Left flank pain. Condition is kg Stable. Forms are Medication Reconciliation Form, Thank You Letter, Antibiotic Education, Prescription Opioid Use. Follow up: Private Physician; When: As needed; Reason: Recheck today's complaints, Re-evaluation by your physician. Problem is new. Symptoms have improved. rn
--- NOTE | 2020-09-27 10:42 | ER ---
Nurse's Notes [facility] Name: Luz Maria Mendoza Age: 44 yrs Sex: Female : 1975 Arrival Date: 09/27/2020 Time: 07:47 Bed 15 Private MD: Diagnosis: Left flank pain Presentation: 09/27 08:10 Chief complaint: Patient states: left flank pain since yesterday and nausea. Pt denies aa5 vomiting. Coronavirus screen: At this time, the client does not indicate any symptoms associated with coronavirus-19. Ebola Screen: Patient negative for fever greater than or equal to 101.5 degrees Fahrenheit, and additional compatible Ebola Virus Disease symptoms. Initial Sepsis Screen: Does the patient meet any 2 criteria? No. Patient's initial sepsis screen is negative. Does the patient have a suspected source of infection? No. Patient's initial sepsis screen is negative. Risk Assessment: Do you want to hurt yourself or someone else? Patient reports no desire to harm self or others. Onset of symptoms was September 26, 2020. 08:10 Acuity: ODALYS 3 aa5 08:10 Method Of Arrival: Ambulatory aa5 [employer]: 11:18 LMP N/A - Hysterectomy kg Historical: - Allergies: 08:12 Codeine; aa5 08:12 Contraceptives; aa5 08:12 Erythromycin; aa5 08:12 Iodinated Contrast Media - IV Dye; aa5 08:12 Phenergan (IV); aa5 08:12 Topamax; aa5 08:12 Ultram (Itching); aa5 08:12 Vicodin; aa5 - PMHx: 08:10 Anxiety; caverness angioma; Diverticulitis; Endometrosis; GERD; hiatal hernia; HPV; aa5 ibs; IRON DEFICIENCY ANEMIA; Kidney stones; Migraines; PE; pseudotumors; sciatica; SVT; Arthritis; - PSHx: 08:10 cardiac ablation; IVC filter placed and removed; Cholecystectomy; c section; gamma aa5 knife for carvenous angioma bleed; Appendectomy; hemicolectomy; Steven fallopian tubes and ovaries removed; - Immunization history:: Adult Immunizations unknown. - Social history:: Smoking status: Patient denies any tobacco usage or history of. - Family history:: not pertinent. - Hospitalizations: : No recent hospitalization is reported. Screenin:17 Abuse screen: Denies threats or abuse. Nutritional screening: No deficits noted. kg Tuberculosis screening: No symptoms or risk factors identified. Fall Risk None identified. No fall in past 12 months (0 pts). No secondary diagnosis (0 pts). IV access (20 points). Ambulatory Aid- None/Bed Rest/Nurse Assist (0 pts). Gait- Normal/Bed Rest/Wheelchair (0 pts) Mental Status- Oriented to own ability (0 pts). Total Zimmerman Fall Scale indicates No Risk (0-24 pts). Assessment: 09:03 General: Appears in no apparent distress. Behavior is calm, cooperative, appropriate kg for age, quiet. Pain: Complains of pain in left low back and left mid back Pain radiates to abdomen Pain currently is 4 out of 10 on a pain scale. at worst was 8 out of 10 on a pain scale. level that patient reports is acceptable is 3 out of 10 on a pain scale. Quality of pain is described as dull, Pain began 1 day ago. Neuro: No deficits noted. Cardiovascular: No deficits noted. Respiratory: No deficits noted. GI: Bowel sounds present X 4 quads. Abd is soft and non tender X 4 quads. Reports nausea. : No deficits noted. EENT: No deficits noted. Derm: No deficits noted. Musculoskeletal: No deficits noted. Vital Signs: 08:10 BP 123 / 81; Pulse 88; Resp 18 S; Temp 98.3(O); Pulse Ox 98% on R/A; Weight 92.08 kg aa5 (R); Height 5 ft. 3 in. (160.02 cm) (R); 10:30 BP 127 / 84; Pulse 76; Resp 18; Pulse Ox 98% on R/A; kg 08:10 Body Mass Index 35.96 (92.08 kg, 160.02 cm) aa5 ED Course: 07:47 Patient arrived in ED. as 08:07 Arm band placed on. aa5 08:11 Triage completed. aa5 08:46 Hany Sierra MD is Attending Physician. rn 09:03 Diana Arango is Primary Nurse. kg 09:10 Inserted saline lock: 20 gauge in right antecubital area, using aseptic technique. kg 09:27 Urine Dipstick-Ancillary Sent. kg 09:27 Basic Metabolic Panel Sent. kg 09:28 CBC with Diff Sent. kg 09:28 Hepatic Function Sent. kg 09:28 Lipase Sent. kg 09:40 CT Stone Protocol In Process Unspecified. EDMS 11:19 Patient has correct armband on for positive identification. Bed in low position. Call kg light in reach. Side rails up X 1. 11:19 No provider procedures requiring assistance completed. IV discontinued, intact, kg bleeding controlled, No redness/swelling at site. Pressure dressing applied. Administered Medications: No medications were administered Outcome: 10:41 Discharge ordered by . rn 11:20 Discharged to home ambulatory. kg 11:20 Condition: good 11:20 Discharge instructions given to patient, Instructed on discharge instructions, follow up and referral plans. Demonstrated understanding of instructions, follow-up care. 11:20 Patient left the ED. kg Signatures: Dispatcher [employer] Rosangela Pfeiffer Roman, MD MD rn Calderon, Audri RN RN aa5 Diana Arango kg
[2020-09-27 11:40] VITALS: TEMP 98.3; O2SAT 98
[2020-09-27 11:42] VITALS: BP 127/84
== END 2020-09-27 11:20 | disposition home or self-care (01) ==
LOC: ER 07:44
DX: R10.9 Unspecified abdominal pain (principal); Z88.3 Allergy status to other anti-infective agents; Z88.5 Allergy status to narcotic agent; Z88.8 Allergy status to other drugs, medicaments and biological substances; Z91.041 Radiographic dye allergy status; Z87.442 Personal history of urinary calculi
CPT/HCPCS: 36415; 74176; 76377; 80048; 80076; 81003; 81015; 83690; 85025; 87086; 87088; 99283